=== PATIENT | female | born 1965 | race Caucasian/White ===

== ENCOUNTER → 2017-08-11 | Outpatient (CLI) | payer OTHER ==
--- NOTE | 2017-08-13 11:48 | MM ---
Reason for exam: screening (asymptomatic). History: Patient is postmenopausal. Physical Findings: A clinical breast exam by your physician is recommended on an annual basis and results should be correlated with mammographic findings. MG Screening Mammo w CAD Bilateral CC and MLO view(s) were taken. No prior studies available for comparison. There are scattered fibroglandular densities. There is no discrete abnormality. ASSESSMENT: Negative, BI-RAD 1 RECOMMENDATION: Routine screening mammogram of both breasts in 1 year.
== END | disposition home or self-care (01) ==
LOC: RADMAMWWP 15:49
PROVIDERS: ATTEND Family Medicine
DX: Z12.31 Encounter for screening mammogram for malignant neoplasm of breast (principal)

== ENCOUNTER → 2017-09-25 | Outpatient (CLI) | payer OTHER ==
[2017-09-25 07:53] LABS: Blood Urea Nitrogen 16 mg/dL (7-17); Non-African American GFR(MDRD) >60 (>60 ml/min/1.73 sqM)
--- NOTE | 2017-09-25 10:26 | CT ---
EXAMINATION TYPE: CT abdomen w con DATE OF EXAM: 09/25/2017 HISTORY: Abd pain and discomfort x2 months. CT DLP: 1371mGycm Automated Exposure Control for Dose Reduction was Utilized. CONTRAST: CT scan of the abdomen is performed with oral and with IV Contrast, patient injected with 100 mL of O mnipaque 300. COMPARISON: None. FINDINGS: LUNG BASES: Heart size is mildly enlarged. LIVER/GB: Liver is markedly hypodense consistent with fatty infiltration. PANCREAS: No significant abnormality is seen. SPLEEN: There is tiny splenule inferior to spleen on axial image 32. There is subcentimeter low dense lesion in spleen on axial image 22 presumed benign. ADRENALS: Slight nodular thickening to left adrenal gland favors benign hyperplasia. KIDNEYS: No significant abnormality is seen. BOWEL: There is small size hiatal hernia. Oral contrast does not reach colonic level. There is no julissa picious small or large bowel dilatation. There is short segment of concentric narrowing measuring bet ween 1 to 2 cm in the proximal to mid transverse colon seen on coronal image 18 and corresponding axi al image 47. Findings likely reflects focal spasm but constricting neoplasm cannot be excluded. Advis e colonoscopy follow-up of is not been performed in last 3 years LYMPH NODES: No greater than 1cm abdominal lymph nodes are appreciated. OSSEOUS STRUCTURES: Mild anterior spurring lower thoracic spine is present. OTHER: No significant additional abnormality is seen. IMPRESSION: No bowel obstruction is seen. No significant acute finding is seen to account for patient 's clinical symptoms. Attention to focal area proximal to mid transverse colon as detailed above.
== END | disposition home or self-care (01) ==
LOC: RADCTMAIN 07:22
PROVIDERS: ATTEND Family Medicine
DX: K43.9 Ventral hernia without obstruction or gangrene (principal)
CPT/HCPCS: 82565; 84520; 74160; 36415; Q9967

== ENCOUNTER 2017-10-03 07:35 | Day surgery (SDC) | payer OTHER ==
[2017-09-30 15:06] VITALS: BMI 34.0
[~2017-10-03 07:35] MED LIST: HYDROmorphone 1 MG/ML 1 ML SYRINGE IVP PRN; LACTATED RINGERS 1,000 ML IV ONE
[2017-10-03 08:08] LABS: Glucose,Whole Blood 166 mg/dL (75-99)
[2017-10-03 08:10] VITALS: RESP 16; TEMP 98
[2017-10-03] MEDS ORDERED: LIDOCAINE 1% 20 ML VIAL (10MG/ML) FOR IV START INTRADERMA ONE (08:10)
[2017-10-03] MEDS ORDERED: PROPOFOL 10 MG/ML 20 ML VIAL IV ONE (08:32)
--- NOTE | 2017-10-03 08:50 | P.PCN ---
Date of Procedure: 10/03/17 Procedure(s) Performed: BRIEF HISTORY: Patient is a 51-year-old pleasant white female, scheduled for an elective colonoscopy as a part of screening for colon neoplasia. She also had a CT of the abdomen and pelvis done in a week ago that showed some narrowing of the transverse colon. PROCEDURE PERFORMED: Colonoscopy. PREOPERATIVE DIAGNOSIS: Screening for colon cancer. IV sedation per Anesthesia. PROCEDURE: After informed consent was obtained, the patient, was brought into the endoscopy unit. IV sedation was administered by Anesthesia under continuous monitoring. Digital rectal examination was normal. Initially the Olympus CF- 160 flexible video colonoscope was then inserted in the rectum, gradually advanced into the cecum without any difficulty. Careful examination was performed as the scope was gradually being withdrawn. Ileocecal valve and the appendiceal orifice were visualized and appeared normal. Prep was excellent. Mucosa of the cecum, ascending colon, transverse colon, descending colon, sigmoid colon, and rectum appeared normal. Retroflexion was performed in the rectum and no lesions were seen. The patient tolerated the procedure well. IMPRESSION: Normal-appearing colon from rectum to cecum with no evidence of colorectal neoplasia . RECOMMENDATIONS: Findings of this examination were discussed with the patient as well as a family. She was advised to have a repeat screening colonoscopy in 10 years.
[2017-10-03 09:56] VITALS: BP 131/75; PULSE 94
[2017-10-03 10:05] LABS: Glucose,Whole Blood 182 mg/dL (75-99)
== END 2017-10-03 10:10 | disposition home or self-care (01) ==
LOC: ORWHC2ENDO 07:35
PROVIDERS: ATTEND Internal Medicine Gastroenterology
DX: Z12.11 Encounter for screening for malignant neoplasm of colon (principal); E11.9 Type 2 diabetes mellitus without complications; M19.90 Unspecified osteoarthritis, unspecified site; Z79.84 Long term (current) use of oral hypoglycemic drugs
CPT/HCPCS: G0121; J2704

== ENCOUNTER 2018-06-20 07:31 | Observation (INO) | payer OTHER ==
[2018-06-20] MEDS ORDERED: ASPIRIN 81 MG PO STA (08:03)
[2018-06-20] MEDS ORDERED: NITROGLYCERIN OINT 1 INCH/GM PACKET TOPICAL STA (08:03)
--- NOTE | 2018-06-20 08:06 | ED ---
General Adult HPI - General Chief complaint: Chest Pain Stated complaint: CHEST PAIN, HIGH BLOOD PRESSURE Time Seen by Provider: 06/20/18 07:56 Source: patient, family, RN notes reviewed Mode of arrival: wheelchair Limitations: no limitations - History of Present Illness Initial comments: Patient is a pleasant 52-year-old female presenting to the emergency Department with complaints of chest discomfort. Onset was 3 AM. Discomfort lasted around an hour. Discomfort has been near resolved since that time. Discomfort feels like pressure. Patient did have associated palpitations. No nausea vomiting. No diaphoresis. No dyspnea. Symptoms may have worsened with walking around. No leg pain or leg swelling. No history of similar symptoms previously. No radiation. Patient does state it made her feel anxious. Patient checked her blood pressure at home at 180/90. After that systolic blood pressure was 192. After while systolic blood pressure dropped to 123. - Related Data Home Medications Medication Instructions Recorded Confirmed Cholecalciferol (Vitamin D3) 2,000 units PO DAILY 09/30/17 09/30/17 [Vitamin D3] metFORMIN HCL [Glucophage] 500 mg PO BID 09/30/17 09/30/17 Allergies Allergy/AdvReac Type Severity Reaction Status Date / Time No Known Allergies Allergy Verified 06/20/18 07:34 Review of Systems ROS Statement: Those systems with pertinent positive or pertinent negative responses have been documented in the HPI. ROS Other: All systems not noted in ROS Statement are negative. Constitutional: Denies: fever Eyes: Denies: eye pain ENT: Denies: ear pain Respiratory: Denies: dyspnea Cardiovascular: Reports: chest pain, palpitations Endocrine: Reports: fatigue Gastrointestinal: Denies: abdominal pain Genitourinary: Denies: dysuria Musculoskeletal: Denies: back pain Skin: Denies: rash Neurological: Denies: weakness Psychiatric: Reports: anxiety Past Medical History Past Medical History: Diabetes Mellitus, Hypertension Additional Past Medical History / Comment(s): COLON SPASMS, type II DM History of Any Multi-Drug Resistant Organisms: None Reported Past Surgical History: Section Past Anesthesia/Blood Transfusion Reactions: No Reported Reaction Past Psychological History: No Psychological Hx Reported Smoking Status: Never smoker Past Alcohol Use History: None Reported Past Drug Use History: None Reported - Past Family History Son(s) Family Medical History: Deep Vein Thrombosis (DVT) General Exam Limitations: no limitations General appearance: alert, in no apparent distress Head exam: Present: atraumatic Eye exam: Present: normal appearance, PERRL ENT exam: Present: normal oropharynx Neck exam: Present: normal inspection Respiratory exam: Present: normal lung sounds bilaterally Cardiovascular Exam: Present: regular rate, normal rhythm Expanded Peripheral pulses: 2+: Radial (R), Radial (L), Dorsalis Pedis (R), Dorsalis Pedis (L) GI/Abdominal exam: Present: soft. Absent: tenderness Extremities exam: Present: normal inspection. Absent: pedal edema, calf tenderness Neurological exam: Present: alert Psychiatric exam: Present: normal affect, normal mood Skin exam: Present: normal color Course Vital Signs 06/20/18 07:34 Temperature 98.4 F Pulse Rate 110 H Respiratory 18 Rate Blood Pressure 183/100 O2 Sat by Pulse 97 Oximetry EKG Findings - EKG Comments: EKG Findings:: Normal sinus rhythm 95. IL 198. QRS 78. QT 356. QTc 447. Left axis. Borderline lateral T wave inversion. LVH criteria. Medical Decision Making - Medical Decision Making Patient reevaluated and resting comfortably in bed. Patient and family updated on results and plan. Case was discussed in detail with Dr. Blair, who will admit covering for Dr. Perla - Lab Data Result diagrams: 06/20/18 08:10 06/20/18 08:10 Lab Results 06/20/18 06/20/18 06/20/18 Range/Units 08:10 08:10 08:10 WBC 7.1 (3.8-10.6) k/uL RBC 5.12 (3.80-5.40) m/uL Hgb 14.4 (11.4-16.0) gm/dL Hct 44.0 (34.0-46.0) % MCV 85.9 (80.0-100.0) fL MCH 28.2 (25.0-35.0) pg MCHC 32.8 (31.0-37.0) g/dL RDW 13.3 (11.5-15.5) % Plt Count 366 (150-450) k/uL Neutrophils % 67 % Lymphocytes % 22 % Monocytes % 6 % Eosinophils % 3 % Basophils % 1 % Neutrophils # 4.8 (1.3-7.7) k/uL Lymphocytes # 1.5 (1.0-4.8) k/uL Monocytes # 0.4 (0-1.0) k/uL Eosinophils # 0.2 (0-0.7) k/uL Basophils # 0.1 (0-0.2) k/uL PT (9.0-12.0) sec INR (<1.2) APTT (22.0-30.0) sec Sodium 141 (137-145) mmol/L Potassium 4.4 (3.5-5.1) mmol/L Chloride 105 (98-107) mmol/L Carbon Dioxide 25 (22-30) mmol/L Anion Gap 11 mmol/L BUN 15 (7-17) mg/dL Creatinine 0.54 (0.52-1.04) mg/dL Est GFR (CKD-EPI)AfAm >90 (>60 ml/min/1.73 sqM) Est GFR (CKD-EPI)NonAf >90 (>60 ml/min/1.73 sqM) Glucose 217 H (74-99) mg/dL Calcium 9.7 (8.4-10.2) mg/dL Magnesium 2.1 (1.6-2.3) mg/dL Total Bilirubin 0.5 (0.2-1.3) mg/dL AST 34 (14-36) U/L ALT 35 (9-52) U/L Alkaline Phosphatase 71 (38-126) U/L Total Creatine Kinase 75 (30-135) U/L CK-MB (CK-2) 1.1 (0.0-2.4) ng/mL CK-MB (CK-2) Rel Index 1.5 Troponin I 0.013 (0.000-0.034) ng/mL Total Protein 7.6 (6.3-8.2) g/dL Albumin 4.5 (3.5-5.0) g/dL 06/20/18 Range/Units 08:10 WBC (3.8-10.6) k/uL RBC (3.80-5.40) m/uL Hgb (11.4-16.0) gm/dL Hct (34.0-46.0) % MCV (80.0-100.0) fL MCH (25.0-35.0) pg MCHC (31.0-37.0) g/dL RDW (11.5-15.5) % Plt Count (150-450) k/uL Neutrophils % % Lymphocytes % % Monocytes % % Eosinophils % % Basophils % % Neutrophils # (1.3-7.7) k/uL Lymphocytes # (1.0-4.8) k/uL Monocytes # (0-1.0) k/uL Eosinophils # (0-0.7) k/uL Basophils # (0-0.2) k/uL PT 9.8 (9.0-12.0) sec INR 1.0 (<1.2) APTT 22.9 (22.0-30.0) sec Sodium (137-145) mmol/L Potassium (3.5-5.1) mmol/L Chloride (98-107) mmol/L Carbon Dioxide (22-30) mmol/L Anion Gap mmol/L BUN (7-17) mg/dL Creatinine (0.52-1.04) mg/dL Est GFR (CKD-EPI)AfAm (>60 ml/min/1.73 sqM) Est GFR (CKD-EPI)NonAf (>60 ml/min/1.73 sqM) Glucose (74-99) mg/dL Calcium (8.4-10.2) mg/dL Magnesium (1.6-2.3) mg/dL Total Bilirubin (0.2-1.3) mg/dL AST (14-36) U/L ALT (9-52) U/L Alkaline Phosphatase (38-126) U/L Total Creatine Kinase (30-135) U/L CK-MB (CK-2) (0.0-2.4) ng/mL CK-MB (CK-2) Rel Index Troponin I (0.000-0.034) ng/mL Total Protein (6.3-8.2) g/dL Albumin (3.5-5.0) g/dL - Radiology Data Radiology results: image reviewed (Chest x-ray shows mild cardiomegaly) Critical Care Time Critical Care Time: Yes Total Critical Care Time: 31 Disposition Clinical Impression: Unstable angina pectoris Disposition: ADMITTED IP TO THIS [facility] Referrals: Rigoberto Correa DO [Primary Care Provider] - 1-2 days Decision Time: 09:24
[2018-06-20 08:21] LABS: Basophils # (A) 0.1 k/uL (0-0.2); Basophils % (A) 1 %; Eosinophils # (A) 0.2 k/uL (0-0.7); Eosinophils % (A) 3 %; HGB 14.4 gm/dL (11.4-16.0); Lymphocytes # (A) 1.5 k/uL (1.0-4.8); Lymphocytes % (A) 22 %; MCH 28.2 pg (25.0-35.0); MCHC 32.8 g/dL (31.0-37.0); MCV 85.9 fL (80.0-100.0); Monocytes # (A) 0.4 k/uL (0-1.0); Monocytes % (A) 6 %; Neutrophils # (A) 4.8 k/uL (1.3-7.7); Neutrophils % (A) 67 %; Platelet Count 366 k/uL (150-450); RBC 5.12 m/uL (3.80-5.40); RDW 13.3 % (11.5-15.5); WBC 7.1 k/uL (3.8-10.6)
[2018-06-20 08:28] LABS: Partial Thromboplastin Time 22.9 sec (22.0-30.0); Prothrombin Time 9.8 sec (9.0-12.0)
[2018-06-20 08:32] LABS: Sodium 141 mmol/L (137-145)
[2018-06-20 08:33] LABS: ALT 35 U/L (9-52); AST 34 U/L (14-36); Albumin 4.5 g/dL (3.5-5.0); Alkaline Phosphatase 71 U/L (38-126); Anion Gap 11 mmol/L; Blood Urea Nitrogen 15 mg/dL (7-17); Calcium 9.7 mg/dL (8.4-10.2); Carbon Dioxide 25 mmol/L (22-30); Chloride 105 mmol/L (98-107); Glucose 217 mg/dL (74-99); Magnesium 2.1 mg/dL (1.6-2.3); Potassium 4.4 mmol/L (3.5-5.1); Total Bilirubin 0.5 mg/dL (0.2-1.3); Total Protein 7.6 g/dL (6.3-8.2)
[2018-06-20 09:07] LABS: Creatine Kinase MB 1.1 ng/mL (0.0-2.4); Troponin I 0.013 ng/mL (0.000-0.034)
--- NOTE | 2018-06-20 09:11 | XR ---
EXAMINATION TYPE: XR chest 2V DATE OF EXAM: 06/20/2018 HISTORY: Chest Pain. REFERENCE: NONE. FINDINGS: The heart is mildly enlarged. The lungs are clear. Pleural spaces are clear. There is a mil d dextroscoliosis. IMPRESSION: MILD CARDIOMEGALY.
[2018-06-20] MEDS ORDERED: NITROGLYCERIN SL TABS 0.4 MG TAB SUBLINGUAL PRN (09:24)
[2018-06-20] MEDS ORDERED: HEPARIN SODIUM,PORCINE 5,000 UNIT/ML 1 ML VIAL IV ONE (09:24)
[2018-06-20] MEDS ORDERED: METOPROLOL TARTRATE 25 MG TAB PO SCH (09:30)
[2018-06-20] MEDS: HEPARIN SOD,PORK IN 0.45% NACL 25,000 UNIT in 0.45% NACL 1 500ML.BAG IV SCH (09:44)
[2018-06-20 10:24] VITALS: BMI 34.4
[2018-06-20] MEDS ORDERED: LOSARTAN 50 MG TAB PO SCH (11:30)
--- NOTE | 2018-06-20 11:32 | P.CRDCN ---
<Mary Iverson E - Last Filed: 06/20/18 11:24> History of Present Illness Consult date: 06/20/18 Requesting physician: Humberto Blair Consult reason: chest pain Chief complaint: Chest pain History of present illness: This is a pleasant 52-year-old female with history of hypertension, hyperlipidemia, which according to her at been somewhat recently diagnosed. She states that she had not been to a physician for approximately 15 years, she started to follow-up regularly in the office and was told to have diabetes and hypertension. She has been started on medications for both of these as well. Patient is not on a cholesterol pill at this time, she is a nonsmoker. Patient is overweight, however states that she is quite physically active overall. She presents to the hospital on this occasion with symptoms of feeling her heart racing fast. According to the patient today went out for dinner to [employer] approximately 10 PM, she states that she did drink a glass of iced tea and normally does not consume caffeine at all, went to bed around 2 AM, woke up from sleep around 3 AM feeling her heart racing extremely fast. She states that she got up, tried to take some very deep breaths to see if she can control the heart from going as fast as it was however the symptoms persisted. She did check her pulse at home which was noted at that time to be in the 1 8190 range. She came into the hospital for further evaluation. Blood pressure on arrival here 183/100 with a heart rate of 110, temperature 98.4 she was 97% on room air. Subsequent blood pressure 150/70 with a heart rate in the 80s, temperature 90.7, she is 94% on room air. EKG performed on arrival here showed a normal sinus rhythm with T wave inversion noted in the lateral leads. Chest x -ray shows mild cardiomegaly. White blood cell count is normal, hemoglobin 14.4 , platelet count 366. Sodium 141, potassium 4.4, BUN 15, creatinine 0.5. Magnesium 2.1. Troponin 0.013. At the time of my examination this morning, she is currently free of any palpitations or chest discomfort. Past Medical History Past Medical History: Diabetes Mellitus, Hypertension Additional Past Medical History / Comment(s): type II DM History of Any Multi-Drug Resistant Organisms: None Reported Past Surgical History: Section Past Anesthesia/Blood Transfusion Reactions: No Reported Reaction Past Psychological History: No Psychological Hx Reported Smoking Status: Never smoker Past Alcohol Use History: None Reported Past Drug Use History: None Reported - Past Family History Son(s) Family Medical History: Deep Vein Thrombosis (DVT) Medications and Allergies Home Medications Medication Instructions Recorded Confirmed Type Cholecalciferol (Vitamin D3) 2,000 units PO DAILY 09/30/17 06/20/18 History [Vitamin D3] metFORMIN HCL [Glucophage] 500 mg PO BID 09/30/17 06/20/18 History Losartan Potassium 100 mg PO DAILY 06/20/18 06/20/18 History Allergies Allergy/AdvReac Type Severity Reaction Status Date / Time No Known Allergies Allergy Verified 06/20/18 07:34 Physical Exam Vitals: Vital Signs Temp Pulse Pulse Resp BP BP Pulse Ox 06/20/18 10:13 97 F L 89 16 150/77 94 L 06/20/18 09:47 85 17 182/88 96 06/20/18 07:34 98.4 F 110 H 18 183/100 97 Intake and Output 06/19/18 06/20/18 06/20/18 22:59 06:59 14:59 Other: # Voids 1 Weight 85.5 kg PHYSICAL EXAMINATION: GENERAL: 52-year-old female in no acute distress at the time of my examination HEENT: Head is atraumatic, normocephalic. Pupils equal, round. Sclera anicteric. Conjunctiva are clear. Mucous membranes of the mouth are moist. Neck is supple. There is no elevated jugular venous pressure. No carotid bruit is heard. HEART EXAMINATION: Heart S1, S2 normal. No murmur or gallop heard. CHEST EXAMINATION: Lungs are clear to auscultation and precussion. No chest wall tenderness is noted on palpation or with deep breathing. ABDOMEN: Soft, obese, nontender. Bowel sounds are heard. No organomegaly noted. EXTREMITIES: 2+ peripheral pulses with no evidence of peripheral edema and no calf tenderness noted. NEUROLOGIC patient is awake, alert and oriented X3. . Results 06/20/18 08:10 06/20/18 08:10 Cardiac Enzymes 06/20/18 06/20/18 Range/Units 08:10 08:10 AST 34 (14-36) U/L CK-MB (CK-2) 1.1 (0.0-2.4) ng/mL Troponin I 0.013 (0.000-0.034) ng/mL Coagulation 06/20/18 Range/Units 08:10 PT 9.8 (9.0-12.0) sec APTT 22.9 (22.0-30.0) sec CBC 06/20/18 Range/Units 08:10 WBC 7.1 (3.8-10.6) k/uL RBC 5.12 (3.80-5.40) m/uL Hgb 14.4 (11.4-16.0) gm/dL Hct 44.0 (34.0-46.0) % Plt Count 366 (150-450) k/uL Comprehensive Metabolic Panel 06/20/18 Range/Units 08:10 Sodium 141 (137-145) mmol/L Potassium 4.4 (3.5-5.1) mmol/L Chloride 105 (98-107) mmol/L Carbon Dioxide 25 (22-30) mmol/L BUN 15 (7-17) mg/dL Creatinine 0.54 (0.52-1.04) mg/dL Glucose 217 H (74-99) mg/dL Calcium 9.7 (8.4-10.2) mg/dL AST 34 (14-36) U/L ALT 35 (9-52) U/L Alkaline Phosphatase 71 (38-126) U/L Total Protein 7.6 (6.3-8.2) g/dL Albumin 4.5 (3.5-5.0) g/dL Current Medications Generic Name Dose Route Start Last Admin Trade Name Jasonq PRN Reason Stop Dose Admin Aspirin 325 mg 06/21/18 09:00 Aspirin PO DAILY [facility] Heparin Sodium (Porcine) 0 unit 06/20/18 09:24 Heparin IV Q6HR PRN Low PTT Protocol Heparin Sodium/Sodium Chloride 500 mls @ 20.06 mls/hr 06/20/18 09:30 09:44 25,000 unit/ Sodium Chloride IV 11.7 units/kg/hr .Q24H KATH 20.06 mls/hr Administration Protocol 11.7 UNITS/KG/HR Metoprolol Tartrate 25 mg 06/20/18 09:30 06/20/18 09:43 Lopressor PO 25 mg BID [facility] Administration Nitroglycerin 1 inch 06/20/18 12:00 Nitro-Bid Oint TOPICAL Q6HR KATH Nitroglycerin 0.4 mg 06/20/18 09:24 Nitrostat SUBLINGUAL Q5M PRN Chest Pain Sodium Chloride 10 ml 06/20/18 21:00 Saline Flush IV BID KATH Intake and Output 06/19/18 06/20/18 06/20/18 22:59 06:59 14:59 Other: # Voids 1 Weight 85.5 kg Patient Weight 06/21/18 06:59 Weight 85.5 kg 06/20/18 08:10 06/20/18 08:10 EKG Interpretations (text) EKG shows a normal sinus rhythm with T wave inversion noted in the lateral leads. Assessment and Plan Plan: Assessment and plan #1 chest discomfort with symptoms described by the patient to be palpitations and feeling her heart racing fast. Initial troponin 0.013. EKG shows normal sinus rhythm with T wave inversion noted in the lateral leads. #2 hypertension, uncontrolled #3 diabetes Plan We will obtain an echocardiogram with Doppler study as well as 2 subsequent troponins. Obtain TSH level. Continue to monitor for any significant tachycardia or bradycardia arrhythmias. Patient has also been advised to be started on a statin being that she has an adult with diabetes. We will check a fasting lipid profile as well. Continue with the heparin drip at this time. She was initiated on beta fanta in the emergency room we'll also resume her Cozaar which she was on at home. Further recommendations to follow. DNP note has been reviewed, I agree with a documented findings and plan of care. Patient was seen and examined. <Narayan Sosa - Last Filed: 06/20/18 13:39> History of Present Illness History of present illness: Patient interviewed and examined. She was admitted with a rapid heartbeat was also found to be hypertensive and diabetic Suggest stop metoprolol, losartan 50 g twice daily, Dyazide, watch blood pressure for the next 24 hours and then later follow-up with Dr. Muro. Diabetes management per primary team Lipid panel Physical Exam Vitals: Vital Signs Temp Pulse Pulse Resp BP BP Pulse Ox 06/20/18 12:00 78 16 136/77 96 06/20/18 10:13 97 F L 89 16 150/77 94 L 06/20/18 09:47 85 17 182/88 96 06/20/18 07:34 98.4 F 110 H 18 183/100 97 Intake and Output 06/19/18 06/20/18 06/20/18 22:59 06:59 14:59 Other: # Voids 2 Weight 85.5 kg Results 06/20/18 08:10 06/20/18 08:10 Cardiac Enzymes 06/20/18 06/20/18 Range/Units 08:10 08:10 AST 34 (14-36) U/L CK-MB (CK-2) 1.1 (0.0-2.4) ng/mL Troponin I 0.013 (0.000-0.034) ng/mL Coagulation 06/20/18 Range/Units 08:10 PT 9.8 (9.0-12.0) sec APTT 22.9 (22.0-30.0) sec CBC 06/20/18 Range/Units 08:10 WBC 7.1 (3.8-10.6) k/uL RBC 5.12 (3.80-5.40) m/uL Hgb 14.4 (11.4-16.0) gm/dL Hct 44.0 (34.0-46.0) % Plt Count 366 (150-450) k/uL Comprehensive Metabolic Panel 06/20/18 Range/Units 08:10 Sodium 141 (137-145) mmol/L Potassium 4.4 (3.5-5.1) mmol/L Chloride 105 (98-107) mmol/L Carbon Dioxide 25 (22-30) mmol/L BUN 15 (7-17) mg/dL Creatinine 0.54 (0.52-1.04) mg/dL Glucose 217 H (74-99) mg/dL Calcium 9.7 (8.4-10.2) mg/dL AST 34 (14-36) U/L ALT 35 (9-52) U/L Alkaline Phosphatase 71 (38-126) U/L Total Protein 7.6 (6.3-8.2) g/dL Albumin 4.5 (3.5-5.0) g/dL Current Medications Generic Name Dose Route Start Last Admin Trade Name Freq PRN Reason Stop Dose Admin Aspirin 325 mg 06/21/18 09:00 Aspirin PO DAILY KATH Atorvastatin Calcium 40 mg 06/20/18 11:45 06/20/18 12:19 Lipitor PO 40 mg DAILY KATH Administration Heparin Sodium (Porcine) 0 unit 06/20/18 09:24 Heparin IV Q6HR PRN Low PTT Protocol Hydrochlorothiazide 25 mg 06/20/18 11:45 06/20/18 12:19 Hydrodiuril PO 25 mg DAILY KATH Administration Heparin Sodium/Sodium Chloride 500 mls @ 20.06 mls/hr 06/20/18 09:30 09:44 25,000 unit/ Sodium Chloride IV 11.7 units/kg/hr .Q24H KATH 20.06 mls/hr Administration Protocol 11.7 UNITS/KG/HR Losartan Potassium 50 mg 06/20/18 21:00 06/20/18 12:24 Cozaar PO 50 mg BID KATH Administration Metformin HCl 500 mg 06/20/18 12:15 06/20/18 12:23 Glucophage PO 500 mg BID-W/MEALS KATH Administration Nitroglycerin 0.4 mg 06/20/18 09:24 Nitrostat SUBLINGUAL Q5M PRN Chest Pain Sodium Chloride 10 ml 06/20/18 21:00 Saline Flush IV BID KATH Intake and Output 06/19/18 06/20/18 06/20/18 22:59 06:59 14:59 Other: # Voids 2 Weight 85.5 kg Patient Weight 06/21/18 06:59 Weight 85.5 kg 06/20/18 08:10 06/20/18 08:10
[2018-06-20] MEDS ORDERED: HYDROCHLOROTHIAZIDE 25 MG TAB PO SCH (11:45)
[2018-06-20 11:48] LABS: Glucose,Whole Blood 181 mg/dL (75-99)
[2018-06-20] MEDS ORDERED: NITROGLYCERIN OINT 1 INCH/GM PACKET TOPICAL SCH (12:00)
[2018-06-20] MEDS: ATORVASTATIN 40 MG TAB PO SCH (12:19)
[2018-06-20] MEDS: metFORMIN 500 MG TAB PO SCH ×2 (12:23→17:06)
[2018-06-20] MEDS: LOSARTAN 50 MG TAB PO SCH ×2 (12:24→20:30)
--- NOTE | 2018-06-20 13:56 | P.HPIM ---
History of Present Illness 52-year-old the female came in because of palpitations. Patient does have history of a supra ventricular tachycardia years ago. Patient EKG here is sinus rhythm patient heart rate apparently was in 190s at home. Patient has some minimal chest pressure secondary to palpitations. Patient was given beta fanta. Patient was a valid by cardiology the recommending to hold off on beta fanta patient that it appears to have left ventricle hypertrophy with elevated blood pressure appears to have essential hypertension which is untreated because of which a cardiology is recommending BISHOP inhibitor along with hydrochlorothiazide. Patient's troponins and EKGs are essentially within normal limits and a monitor her overnight. Review of Systems REVIEW OF SYSTEMS: CONSTITUTIONAL: No fever, no malaise, no fatigue. HEENT: No recent visual problems or hearing problems. Denied any sore throat. CARDIOVASCULAR: No chest pain, orthopnea, PND, no lightheadedness PULMONARY: No shortness of breath, no cough, no hemoptysis. GASTROINTESTINAL: No diarrhea, no nausea, no vomiting, no abdominal pain. Normoactive bowel sounds. NEUROLOGICAL: No headaches, no weakness, no numbness. HEMATOLOGICAL: Denies any bleeding or petechiae. GENITOURINARY: Denies any burning micturition, frequency, or urgency. MUSCULOSKELETAL/RHEUMATOLOGICAL: Denies any joint pain, swelling, or any muscle pain. ENDOCRINE: Denies any polyuria or polydipsia. The rest of the 14-point review of systems is negative. Past Medical History Past Medical History: Diabetes Mellitus, Hypertension Additional Past Medical History / Comment(s): type II DM History of Any Multi-Drug Resistant Organisms: None Reported Past Surgical History: Section Past Anesthesia/Blood Transfusion Reactions: No Reported Reaction Past Psychological History: No Psychological Hx Reported Smoking Status: Never smoker Past Alcohol Use History: None Reported Past Drug Use History: None Reported - Past Family History Son(s) Family Medical History: Deep Vein Thrombosis (DVT) Medications and Allergies Home Medications Medication Instructions Recorded Confirmed Type Cholecalciferol (Vitamin D3) 2,000 units PO DAILY 09/30/17 06/20/18 History [Vitamin D3] metFORMIN HCL [Glucophage] 500 mg PO BID 09/30/17 06/20/18 History Losartan Potassium 100 mg PO DAILY 06/20/18 06/20/18 History Allergies Allergy/AdvReac Type Severity Reaction Status Date / Time No Known Allergies Allergy Verified 06/20/18 07:34 Physical Exam Vitals: Vital Signs Temp Pulse Pulse Resp BP BP Pulse Ox 06/20/18 12:00 78 16 136/77 96 06/20/18 10:13 97 F L 89 16 150/77 94 L 06/20/18 09:47 85 17 182/88 96 06/20/18 07:34 98.4 F 110 H 18 183/100 97 Intake and Output 06/19/18 06/20/18 06/20/18 22:59 06:59 14:59 Other: # Voids 2 Weight 85.5 kg PHYSICAL EXAMINATION: GENERAL: The patient is alert and oriented x3, not in any acute distress. Well developed, well nourished. HEENT: Pupils are round and equally reacting to light. EOMI. No scleral icterus. No conjunctival pallor. Normocephalic, atraumatic. No pharyngeal erythema. No thyromegaly. CARDIOVASCULAR: S1 and S2 present. No murmurs, rubs, or gallops. PULMONARY: Chest is clear to auscultation, no wheezing or crackles. ABDOMEN: Soft, nontender, nondistended, normoactive bowel sounds. No palpable organomegaly. MUSCULOSKELETAL: No joint swelling or deformity. EXTREMITIES: No cyanosis, clubbing, or pedal edema. NEUROLOGICAL: Gross neurological examination did not reveal any focal deficits. SKIN: No rashes. Results CBC & Chem 7: 06/20/18 08:10 06/20/18 08:10 Labs: Abnormal Lab Results - Last 24 Hours (Table) 06/20/18 06/20/18 Range/Units 08:10 11:45 Glucose 217 H (74-99) mg/dL POC Glucose (mg/dL) 181 H (75-99) mg/dL Thrombosis Risk Factor Assmnt - Choose All That Apply Any of the Below Risk Factors Present?: Yes Each Factor Represents 1 point: Acute IN, Age 41-60 years, Obesity (BMI >25) Other Risk Factors: Yes Thrombosis Risk Factor Assessment Total Risk Factor Score: 3 Thrombosis Risk Factor Assessment Level: Moderate Risk Assessment and Plan Plan: -Palpitations: Patient may have had an episode of SVT, beta fanta is being discontinued so that we don't mask any further episodes of SVTs if she has any. If patient doesn't have any significant events probably can be discharged tomorrow. -Chest discomfort noncardiac, we will ruled out acute current syndromes -Hypertension: Uncontrolled, patient is on losartan and had chlorothiazide now will monitor. -Type 2 diabetes mellitus on metformin which will be continued.
[2018-06-20 14:02] LABS: Cholesterol 293 mg/dL (<200); HDL Cholesterol 40 mg/dL (40-60); Triglycerides 440 mg/dL (<150)
[2018-06-20 15:48] LABS: Creatine Kinase MB 0.9 ng/mL (0.0-2.4); Troponin I 0.016 ng/mL (0.000-0.034)
[2018-06-20] MEDS: HEPARIN SODIUM,PORCINE 5,000 UNIT/ML 1 ML VIAL IV PRN ×2 (15:58→21:41)
[2018-06-20 16:38] LABS: Glucose,Whole Blood 155 mg/dL (75-99)
[2018-06-20 21:02] LABS: Glucose,Whole Blood 143 mg/dL (75-99)
[2018-06-20 21:34] LABS: Creatine Kinase MB 0.8 ng/mL (0.0-2.4); Troponin I 0.018 ng/mL (0.000-0.034)
[2018-06-21 04:25] LABS: Mean Platelet Volume 6.6; Platelet Count 382 k/uL (150-450)
[2018-06-21 04:36] LABS: Cholesterol 266 mg/dL (<200); HDL Cholesterol 39 mg/dL (40-60)
[2018-06-21 04:45] LABS: Triglycerides 639 mg/dL (<150)
[2018-06-21] MEDS: HEPARIN SODIUM,PORCINE 5,000 UNIT/ML 1 ML VIAL IV PRN (05:16)
[2018-06-21] MEDS: HEPARIN SOD,PORK IN 0.45% NACL 25,000 UNIT in 0.45% NACL 1 500ML.BAG IV SCH (05:16)
[2018-06-21 06:16] LABS: Glucose,Whole Blood 189 mg/dL (75-99)
[2018-06-21] MEDS: metFORMIN 500 MG TAB PO SCH (06:54)
[2018-06-21] MEDS: LOSARTAN 50 MG TAB PO SCH (08:38)
[2018-06-21] MEDS: ATORVASTATIN 40 MG TAB PO SCH (08:38)
[2018-06-21] MEDS ORDERED: TRIAMTERENE-HCTZ 37.5-25MG 1 EACH CAP PO SCH (09:00)
[2018-06-21] MEDS ORDERED: ASPIRIN 325 MG TAB PO SCH (09:00)
--- NOTE | 2018-06-21 11:40 | P.PN ---
Subjective Patient is doing better. Her blood pressure is better controlled on Cozaar 50 g twice daily along with Dyazide No further palpitations On examination blood pressure 134/83 mmHg respirations normal afebrile 97.8F pulse rate in the 90s Breath sounds are clear Heart sounds S1 and S2 normal Abdomen soft nontender Extended is warm no edema Increased BMI noted Impression Hypertension, essential Left ventricular hypertrophy with preserved systolic function Very mild mitral prolapse Uncontrolled type 2 diabetes, recently diagnosed Dyslipidemia, total cholesterol 266, triglycerides 639, HDL 39 Normal electrolytes Normal kidney function TSH 2.5, normal Impression Patient admitted with palpitations. She's had a history of palpitations in the past but so far no diagnosis has been made Uncontrolled hypertension Newly diagnosed diabetes Elevated triglycerides of greater than 600 Blood pressure is better controlled on losartan 50 g twice daily and Dyazide Detailed discussion with the patient I will see her again in a few weeks. Blood pressure control, management of dyslipidemia, management of diabetes per PCP And further workup for diagnosis of palpitations/arrhythmia Objective - Vital Signs Vital signs: Vital Signs Temp 97.8 F 06/21/18 08:11 Pulse 92 06/21/18 08:11 Resp 18 06/21/18 08:11 BP 155/88 06/21/18 08:11 Pulse Ox 95 06/21/18 08:11 Intake & Output 06/20/18 06/21/18 06/21/18 18:59 06:59 18:59 Intake Total 925.375 373.718 Balance 925.375 373.718 Weight 85.5 kg 86.2 kg Intake: IV 80 0.9ns 80 Intake, IV Titration 125.375 373.718 Amount Heparin Sod,Pork in 0.45% 125.375 373.718 NaCl 25,000 unit In 0.45 % NaCl 1 500ml.bag @ 11.7 UNITS/KG/HR 20.06 mls/hr IV .Q24H KATH Rx#: [id number] Oral 720 Other: Voiding Method Toilet # Voids 2 1 - Labs CBC & Chem 7: 06/21/18 04:00 06/20/18 08:10 Labs: Abnormal Lab Results - Last 24 Hours (Table) 06/20/18 06/20/18 06/20/18 Range/Units 08:10 11:45 16:18 APTT (22.0-30.0) sec POC Glucose (mg/dL) 181 H 155 H (75-99) mg/dL Triglycerides 440 H (<150) mg/dL Cholesterol 293 H (<200) mg/dL HDL Cholesterol (40-60) mg/dL 06/20/18 06/20/18 06/21/18 Range/Units 20:55 21:01 04:00 APTT 31.5 H 43.5 H (22.0-30.0) sec POC Glucose (mg/dL) 143 H (75-99) mg/dL Triglycerides (<150) mg/dL Cholesterol (<200) mg/dL HDL Cholesterol (40-60) mg/dL 06/21/18 06/21/18 Range/Units 04:00 06:15 APTT (22.0-30.0) sec POC Glucose (mg/dL) 189 H (75-99) mg/dL Triglycerides 639 H (<150) mg/dL Cholesterol 266 H (<200) mg/dL HDL Cholesterol 39 L (40-60) mg/dL
[2018-06-21 11:48] LABS: Glucose,Whole Blood 139 mg/dL (75-99)
[2018-06-21 12:06] VITALS: BP 160/89; PULSE 83; RESP 16; TEMP 97.6
--- NOTE | 2018-06-21 13:00 | ECHOF ---
Referral Reason:chest pain MEASUREMENTS -------- HEIGHT: 157.5 cm WEIGHT: 85.3 kg BP: RVIDd: 2.6 cm (< 3.3) IVSd: 1.5 cm (0.6 - 1.1) LVIDd: 4.2 cm (3.9 - 5.3) LVPWd: 2.2 cm (0.6 - 1.1) IVSs: 1.6 cm LVIDs: 2.4 cm LVPWs: 1.4 cm Ao Diam: 2.8 cm (2.0 - 3.7) AV Cusp: 1.5 cm (1.5 - 2.6) LA Diam: 3.5 cm (2.7 - 3.8) MV EXCURSION: 14.230 mm (> 18.000) MV EF SLOPE: 75 mm/s (70 - 150) EPSS: 0.9 cm MV E Marcin: 0.48 m/s MV DecT: 250 ms MV A Marcin: 0.51 m/s MV E/A Ratio: 0.93 RAP: 5.00 mmHg RVSP: 8.79 mmHg FINDINGS -------- Sinus rhythm. This was a technically difficult study with suboptimal views. The left ventricular size is normal. There is severe concentric left ventricular hypertrophy. Ove rall left ventricular systolic function is normal with, an EF between 55 - 60 %. The RV was not well visualized. The left atrial size is normal. The right atrium is normal in size. The aortic valve was not well visualized. The mitral valve was not well visualized. VERY MILD MVP The tricuspid valve was not well visualized. The pulmonic valve was not well visualized. The pericardium is normal. CONCLUSIONS -------- 1. Sinus rhythm. 2. This was a technically difficult study with suboptimal views. 3. The left ventricular size is normal. 4. There is severe concentric left ventricular hypertrophy. 5. Overall left ventricular systolic function is normal with, an EF between 55 - 60 %. 6. The RV was not well visualized. 7. The left atrial size is normal. 8. The right atrium is normal in size. 9. The aortic valve was not well visualized. 10. The mitral valve was not well visualized. 11. The tricuspid valve was not well visualized. 12. The pulmonic valve was not well visualized. 13. The pericardium is normal. LEASING SALES CONSULTANT: Lubna Price RDCS
--- NOTE | 2018-06-21 14:08 | P.DS ---
Providers Date of admission: 06/20/18 09:24 Attending physician: Humberto Blair Consults: 06/20/18 09:24 Consult Physician Urgent Consulting Provider: Yoav Avalos Consult Reason/Comments: ua Do you want consulting provider notified?: Yes Primary care physician: Rigoberto [facility] Course: 52-year-old the female came in because of palpitations. Patient does have history of a supra ventricular tachycardia years ago. Patient EKG here is sinus rhythm patient heart rate apparently was in 190s at home. Patient has some minimal chest pressure secondary to palpitations. Patient was given beta fanta. Patient was a valid by cardiology the recommending to hold off on beta fanta patient that it appears to have left ventricle hypertrophy with elevated blood pressure appears to have essential hypertension which is untreated because of which a cardiology is recommending BISHOP inhibitor along with hydrochlorothiazide. Patient's troponins and EKGs are essentially within normal limits and a monitor her overnight. 06/21/2018 No overnight events patient is clinically doing well patient is being discharged on Dyazide additionally for her blood pressure no beta fanta is being prescribed patient will follow-up with the cardiology as an outpatient. Patient is also being started on statin. PHYSICAL EXAMINATION: GENERAL: The patient is alert and oriented x3, not in any acute distress. Well developed, well nourished. HEENT: Pupils are round and equally reacting to light. EOMI. No scleral icterus. No conjunctival pallor. Normocephalic, atraumatic. No pharyngeal erythema. No thyromegaly. CARDIOVASCULAR: S1 and S2 present. No murmurs, rubs, or gallops. PULMONARY: Chest is clear to auscultation, no wheezing or crackles. ABDOMEN: Soft, nontender, nondistended, normoactive bowel sounds. No palpable organomegaly. MUSCULOSKELETAL: No joint swelling or deformity. EXTREMITIES: No cyanosis, clubbing, or pedal edema. NEUROLOGICAL: Gross neurological examination did not reveal any focal deficits. SKIN: No rashes. -Palpitations: Patient may have had an episode of SVT, beta fanta is being discontinued so that we don't mask any further episodes of SVTs if she has any. Patient does not have any significant overnight events is being discharged today placed with a residential fee appraiser patient -Chest discomfort noncardiac, we will ruled out acute current syndromes -Hypertension: Uncontrolled, diabetic is being added to her regimen. -Type 2 diabetes mellitus on metformin which will be continued. Plan - Discharge Summary Discharge Rx Participant: Yes New Discharge Prescriptions: No Action metFORMIN HCL [Glucophage] 500 mg PO BID Cholecalciferol (Vitamin D3) [Vitamin D3] 2,000 units PO DAILY Losartan Potassium 50 mg PO BID Triamterene-Hctz 37.5-25Mg [Dyazide 37.5-25 Capsule] 1 cap PO DAILY Atorvastatin [Lipitor] 40 mg PO DAILY Discharge Medication List Cholecalciferol (Vitamin D3) [Vitamin D3] 2,000 units PO DAILY 09/30/17 [History ] metFORMIN HCL [Glucophage] 500 mg PO BID 09/30/17 [History] Losartan Potassium 50 mg PO BID 06/20/18 [History] Atorvastatin [Lipitor] 40 mg PO DAILY 06/21/18 [History] Triamterene-Hctz 37.5-25Mg [Dyazide 37.5-25 Capsule] 1 cap PO DAILY 06/21/18 [ History] Follow up Appointment(s)/Referral(s): Narayan Sosa MD [STAFF PHYSICIAN] - 2 Weeks Rigoberto Correa DO [Primary Care Provider] - 3 Days Patient Instructions/Handouts: Chest Pain (ED), Heart Palpitations (ED) Discharge Disposition: HOME SELF-CARE
--- NOTE | 2018-07-01 10:01 | CDI ---
Outpatient Documentation Clarification Form Date: 07-01-18 CDS/Project Leader Name: MAGGIE TENORIO Phone: If any questions, call Sosa Armas Rare/Endangered Species Specialist at [phone] Patient Name: FAVIOLA NO Admit Date: 06-20-18 Discharge Date: 06-21-18 ATTENTION: The [facility] Coding Staff appreciate your assistance in clarifying documentation. Please respond to the clarification below the line at the bottom and electronically sign. The [facility] Coding staff will review the response and follow-up if needed. Please note: Queries are made part of the Legal Health Record. If you have any questions, please contact the Rare/Endangered Species Specialist. Dear Dr. Blair, Please specify if uncontrolled diabetes is "hypoglycemia" or "hyperglycemia". hyperglycemia". Thank you for your kind consideration. SAMAN
== END 2018-06-21 14:16 | disposition home or self-care (01) ==
LOC: EC 07:31 → 6SEL 09:24 → 3OBS 06-21 08:15
PROVIDERS: ADMIT Internal Medicine; ATTEND Internal Medicine
DX: R00.2 Palpitations (principal); R07.89 Other chest pain; I10 Essential (primary) hypertension; E11.9 Type 2 diabetes mellitus without complications; E78.5 Hyperlipidemia, unspecified; E78.1 Pure hyperglyceridemia; I34.1 Nonrheumatic mitral (valve) prolapse; I25.2 Old myocardial infarction; Z79.84 Long term (current) use of oral hypoglycemic drugs; Z82.49 Family history of ischemic heart disease and other diseases of the circulatory system; Z79.899 Other long term (current) drug therapy; E66.9 Obesity, unspecified; Z68.34 Body mass index [BMI] 34.0-34.9, adult
CPT/HCPCS: 99291 ×2; 96376 ×5; 96365; 96366; 36415; 94760; 93005; 93306; 80061 ×2; 80053; 82550; 82553; 83735; 84443; 84484; 85025; 85049; 85610; 85730 ×2; 83721; 83036; 71046; G0378 ×3; J1644 ×4; Q9950

== ENCOUNTER 2018-12-10 07:03 | Day surgery (SDC) | payer BC, OTHER ==
[2018-12-03 15:48] VITALS: BMI 33.6
[2018-12-10] MEDS ORDERED: SODIUM CHLORIDE 0.9% 1,000 ML IV SCH (07:19)
[2018-12-10] MEDS ORDERED: LACTATED RINGERS 1,000 ML IV SCH (07:19)
[2018-12-10] MEDS ORDERED: MIDAZOLAM (PF) 2 MG/2 ML VIAL IV PRN (07:19)
[2018-12-10] MEDS ORDERED: LIDOCAINE 1% 20 ML VIAL (10MG/ML) FOR IV START INTRADERMA PRN (07:19)
[2018-12-10] MEDS ORDERED: IV FLUID CONTINUATION 1,000 ML IV ONE (07:20)
[2018-12-10 07:40] VITALS: RESP 18
[2018-12-10 07:55] LABS: Glucose,Whole Blood 153 mg/dL (75-99)
[2018-12-10] MEDS ORDERED: PROPOFOL 10 MG/ML 20 ML VIAL IV ONE (08:01)
[2018-12-10] MEDS ORDERED: ISOPROTERENOL 250 MCG/1.25 ML SYR IV ONE (08:01)
[2018-12-10] MEDS ORDERED: MIDAZOLAM 2 MG/2 ML VIAL ONE (08:01)
[2018-12-10] MEDS ORDERED: fentaNYL (PF) 50 MCG/ML 2 ML AMP ONE (08:01)
[2018-12-10] MEDS ORDERED: LIDOCAINE 1% INJ 10MG/ML (20 ML MDV) ONE (08:21)
[2018-12-10] MEDS ORDERED: HEPARIN SODIUM 1,000 UN/ML (10ML VL) ONE (08:22)
[2018-12-10] MEDS ORDERED: IV FLUID CONTINUATION 950 ML IV ONE (08:30)
[2018-12-10] MEDS ORDERED: LIDOCAINE 1% INJ 10MG/ML (20 ML MDV) SQ ONE (08:41)
[2018-12-10] MEDS ORDERED: ACETAMINOPHEN TAB 325 MG TAB PO PRN (09:55)
[2018-12-10] MEDS ORDERED: HYDROcodone/APAP 5-325MG 1 EACH TAB PO PRN (09:55)
--- NOTE | 2018-12-10 10:08 | P.PRLE ---
RE: KwanEmily Jay Jay Dear Rigoberto Emily Bowens underwent a diagnostic EP study The EP study revealed nonsustained atrial arrhythmias, multifocal No clear-cut atrial fibrillation could be induced There was no evidence for accessory pathway conduction There was no evidence for AV jessika reentry At this time, Emily would be best served with lifestyle modification with weight reduction, sleep apnea management and management of hypertension and diabetes. It is quite likely that in the future she will develop atrial fibrillation, especially if she does not make significant lifestyle changes. In that situation her ASTRID VASC score would be at least 3 I spoke to her as well as her in detail regarding the importance of lifestyle modification particularly weight reduction and sleep apnea management At this point she should continue all her current medications and her blood pressure goal should be consistently less than 130/80 mmHg She should also continue statins No anticoagulation indicated at this point Thank you for entrusting me with the care of the patient Warm regards Sincerely Narayan Sosa
[2018-12-10] MEDS ORDERED: ACETAMINOPHEN IV (For NPO) 1,000 MG in EMPTY BAG 1 BAG IVPB ONE (12:00)
--- NOTE | 2018-12-10 12:23 | CE ---
CARDIAC ELECTROPHYSIOLOGY REPORT Emily Bowens is a 53-year-old female with recurrent palpitations and a slurred upstroke consistent with a possible delta wave on the QRS on a 12-lead ECG. She was brought in for diagnostic EP study and possible radiofrequency ablation. Patient was brought to the EP lab in a fasting state. Written informed consent was obtained prior to the procedure. The left shoulder area was prepped and draped as per protocol. 1% lidocaine was used for local anesthesia. Venous sheaths were placed in the right and left femoral veins and via these diagnostic catheters were placed in the right heart (high right atrial catheter, His bundle, RV and coronary sinus.) On fluoroscopy, the right diaphragm was significantly elevated as compared to the left diaphragm, but both diaphragms were moving with respiration. Sinus cycle length 663 milliseconds, OK interval 181 milliseconds, QRS 93 milliseconds, QT 382 milliseconds, AH and HV intervals were normal. Sinus node recovery times of 600, 500 and 400 milliseconds were 890, 738 and 840 milliseconds. AV node Wenckebach block from the high right atrium was 350 milliseconds. No delta waves are noted. At baseline there was VA dissociation with pacing. AV node Wenckebach block from the coronary sinus was 360 milliseconds. Atrial extra stimulation was performed after double extra stimuli from both the coronary sinus and from the high right atrium, and no SVT was induced and there was no evidence for any accessory pathway conduction nor was there any evidence for any slow pathway. Isuprel was started wide open and then at 2 mcg. VA Wenckebach block improved 300 milliseconds. AV node Wenckebach block 350 milliseconds, no slow pathway conduction, no accessory pathway conduction. Atrial extra stimulation was performed from the high right atrium and from the coronary sinus. Burst stimulation was performed from the right ventricle. On Isuprel, short bursts of irregular atrial tachycardia were noted. These were multifocal, sometimes from the right atrial sometimes from the left atrium. They occurred both spontaneously as well as following atrial pacing. Atrial extra stimulation or occasionally with ventricular pacing. However, there was no evidence for AV jessika reentry, there was no evidence for any accessory pathway conduction or orthodromic reentry or antidromic reentry. No ventricular arrhythmias were noted. Isuprel was stopped and EP study was continued. No other arrhythmias noted. All catheters were removed at the end of the procedure and this patient was transferred back to telemetry. RESULT: Diagnostic EP study revealin. Normal sinus node function. 2. Normal AV node function. 3. No evidence for slow pathway conduction, no evidence for any accessory pathway conduction. 4. No ventricular arrhythmias inducible. 5. Easily inducible atrial arrhythmias, nonsustained, irregular and multifocal, sometimes from right atrium, sometimes from the left atrium, only on Isuprel. 6. No evidence for atrial fibrillation. SUGGEST: Lifestyle modification, weight reduction, diabetes management, hypertension management, sleep apnea assessment. Continue antihypertensive therapy, management of diabetes, and dyslipidemia. MMODL / IJN: [id number] /
[2018-12-10 15:50] VITALS: BP 116/68; PULSE 86; TEMP 98.3
[2018-12-10] MEDS ORDERED: LOSARTAN 50 MG TAB PO SCH (21:00)
[2018-12-10] MEDS ORDERED: metFORMIN 500 MG TAB PO SCH (21:00)
[2018-12-11] MEDS ORDERED: ATORVASTATIN 40 MG TAB PO SCH (09:00)
[2018-12-11] MEDS ORDERED: TRIAMTERENE-HCTZ 37.5-25MG 1 EACH CAP PO SCH (09:00)
== END 2018-12-10 19:35 | disposition home or self-care (01) ==
LOC: CATHEP 07:03 → 1SOBS 11:36 → CATHEP 19:35
PROVIDERS: ATTEND Internal Medicine Clinical Cardiac Electrophysiology
DX: R00.2 Palpitations (principal); I11.9 Hypertensive heart disease without heart failure; E11.9 Type 2 diabetes mellitus without complications; I45.6 Pre-excitation syndrome; Z79.84 Long term (current) use of oral hypoglycemic drugs; Z79.899 Other long term (current) drug therapy; E78.1 Pure hyperglyceridemia
CPT/HCPCS: 81025; 93620; 93623

== ENCOUNTER → 2019-01-28 | Outpatient (CLI) | payer BC ==
--- NOTE | 2019-01-28 12:38 | CONS ---
CONSULTATION DATE OF SERVICE: 01/28/2019 A 53-year-old lady who has been referred to [facility] for evaluation for possible obstructive sleep apnea-hypopnea syndrome. HISTORY OF PRESENT ILLNESS/SLEEP-WAKE EVALUATION: Patient's usual sleep schedule from 11 p.m. to 6 a.m., basically 7 days a week, usually no problems with falling asleep. No TV in bedroom. She prefers to sleep on the left side. Many years ago she slept on the back, that was recommended for her and that is what she is doing every night. Sometimes she has snoring according to her when she is tired. She usually sleeps through the night without awakenings. Not any significant excessive daytime sleepiness. [place] Sleepiness Scale is 0. She does not take any naps. PAST MEDICAL HISTORY: Positive for hypertension, diabetes, recently she has had an episode of tachycardia, has been evaluated by Sales Program Coordinator, hyperlipidemia, menopause for 3 years. MEDICATIONS: Metformin, vitamin D, losartan, temp, p.r.n. hydrochlorothiazide for the last 13. PAST SURGICAL HISTORY: 24 years ago. FAMILY HISTORY: -mass in his knee 0. Father has diabetes is 2. REVIEW OF SYSTEMS: He said he is a self, but due to some pinpoint condition was in the 2 during the day in the episodes of palpitation during. PHYSICAL EXAM: lady without distress BP 147/75, HR 86, RR 16, height 5 feet 1-1/2 inches, weight 186 pounds. Body mass index 34.5, temperature 97.9 oxygen saturation at room air 97% oropharynx showed tongue protrudes midline. Extremely low position of soft palate. Mallampati 4. Wide neck 16 inches in circumference. Abdomen slightly diabetes under physical exam normal just: My template. IMPRESSION: 1. Occasional snoring, extremely low position of soft palate, wide neck, obstructive sleep apnea hypopnea syndrome. 2. Obesity, body mass index of 34.5. 3. Hypertension. 4. History of cardiac arrhythmia. 5. Diabetes mellitus. 6. Hyperlipidemia. 7. Menopause for 3 years. 8. Status post many years ago. PLAN: 1. Home sleep apnea test. 2. Polysomnography for evaluation of patient's breathing during sleep. 3. CPAP/BiPAP titration if sleep study confirms obstructive sleep apnea-hypopnea syndrome. 4. Preferable position during sleep on the side. 5. No driving if patient feels any sleepiness. 6. I will see patient for follow up visit to explain results of testing and following plan. Thank you very much for referring his patient for consultation, Sincerely, Fadi Elias MD, PhD, FAASM Diplomat of [place] [employer] [place] [employer] Waste Water Operator [facility] [place] MMODL / IJN: [id number] /
== END ==
LOC: SLEEP 10:53
PROVIDERS: ATTEND Internal Medicine
DX: G47.33 Obstructive sleep apnea (adult) (pediatric) (principal); E66.9 Obesity, unspecified; I10 Essential (primary) hypertension; E11.9 Type 2 diabetes mellitus without complications; E78.5 Hyperlipidemia, unspecified; Z78.0 Asymptomatic menopausal state; Z98.890 Other specified postprocedural states; Z86.79 Personal history of other diseases of the circulatory system; Z79.899 Other long term (current) drug therapy; Z79.84 Long term (current) use of oral hypoglycemic drugs
CPT/HCPCS: 99211

== ENCOUNTER → 2019-10-08 | Outpatient (CLI) | payer BC ==
--- NOTE | 2019-10-08 13:39 | US ---
EXAMINATION TYPE: US thyroid st tissue head/neck DATE OF EXAM: 10/08/2019 COMPARISON: NONE CLINICAL HISTORY: Localized swelling mass lump R22.1. Patient states doctor thought left side of neck was enlarged compared to right. No palpable. No thyroid meds. GLAND SIZE: Right Lobe: 4.9 x 1.4 x 1.7 cm Overall Parenchyma: heterogenous Left Lobe: 3.5 x 1.9 x 1.3 cm Overall Parenchyma: heterogeneous Isthmus Thickness: 0.4 cm NODULES RIGHT: # of nodules measured on right: 0 LEFT: # of nodules measured on left: 0 ISTHMUS: # of nodules measured in the isthmus: 0 Bilateral neck scanned, no evidence of lymphadenopathy. No prominent masses or lesions visualized in left neck. IMPRESSION: No sizable thyroid nodules are seen. Correlate for thyroiditis.
== END | disposition home or self-care (01) ==
LOC: RADUSWWP 12:48
PROVIDERS: ATTEND Family Medicine
DX: R22.1 Localized swelling, mass and lump, neck (principal)
CPT/HCPCS: 76536

== ENCOUNTER 2020-10-10 10:30 | Inpatient (IN) | payer BC ==
[2020-10-10] MEDS ORDERED: ACETAMINOPHEN TAB 500 MG TAB PO STA (11:05)
--- NOTE | 2020-10-10 11:17 | ED ---
General Adult HPI - General Source: patient, RN notes reviewed Mode of arrival: ambulatory Limitations: no limitations <Rigoebrto Tyson - Last Filed: 10/10/20 14:20> <Sonya Sam - Last Filed: 10/11/20 22:28> - General Chief complaint: Shortness of Breath Stated complaint: Sent by PCP - O2 Level Check Time Seen by Provider: 10/10/20 10:46 - History of Present Illness Initial comments: 54-year-old female presents emergency Department chief complaint of shortness of breath. Patient states his started 5-6 days ago. Patient states that her PCP has been patient on steroids states is not helping she forgets to getting worse. Patient states that she had low oxygenation saturations at PCP and sent in for possible admission. Patient states that her family members have been diagnosed with covid. Patient states he has not been tested will assume to have it. Patient has not taken anything for her fever. She states she feels very fatigued, cannot ambulate without pain extremely short of breath. (Rigoberto Tyson) - Related Data Home Medications Medication Instructions Recorded Confirmed Losartan Potassium 50 mg PO BID 06/20/18 10/10/20 Atorvastatin [Lipitor] 40 mg PO HS 06/21/18 10/10/20 Triamterene-Hctz 37.5-25Mg 1 cap PO DAILY 06/21/18 10/10/20 [Dyazide 37.5-25 Capsule] Ergocalciferol (Vitamin D2) 50,000 units PO MO 12/01/18 10/10/20 [Vitamin D2] Dulaglutide [Trulicity] 1.5 mg SQ TU 10/10/20 10/10/20 metFORMIN HCL ER [Glucophage Xr] 500 mg PO DAILY 10/10/20 10/10/20 Allergies Allergy/AdvReac Type Severity Reaction Status Date / Time No Known Allergies Allergy Verified 10/10/20 12:19 Review of Systems ROS Other: All systems not noted in ROS Statement are negative. <Rigoberto Tyson - Last Filed: 10/10/20 14:20> ROS Other: All systems not noted in ROS Statement are negative. <Sonya Sam - Last Filed: 10/11/20 22:28> ROS Statement: Those systems with pertinent positive or pertinent negative responses have been documented in the HPI. Past Medical History Past Medical History: Diabetes Mellitus, Hypertension Additional Past Medical History / Comment(s): type II DM, history of palpitation s/tachycardis History of Any Multi-Drug Resistant Organisms: None Reported Past Surgical History: Section Past Anesthesia/Blood Transfusion Reactions: No Reported Reaction Past Psychological History: No Psychological Hx Reported Smoking Status: Never smoker Past Alcohol Use History: None Reported Past Drug Use History: None Reported - Past Family History Son(s) Family Medical History: Deep Vein Thrombosis (DVT) <Rigoberto Tyson - Last Filed: 10/10/20 14:20> General Exam Limitations: no limitations General appearance: alert, in no apparent distress Head exam: Present: atraumatic, normocephalic, normal inspection Eye exam: Present: normal appearance, PERRL, EOMI. Absent: scleral icterus, conjunctival injection, periorbital swelling ENT exam: Present: normal exam, mucous membranes moist Neck exam: Present: normal inspection, full ROM. Absent: tenderness, menin gismus, lymphadenopathy Respiratory exam: Present: decreased breath sounds. Absent: normal lung sounds bilaterally, respiratory distress, wheezes, rales, rhonchi, stridor Cardiovascular Exam: Present: regular rate, normal rhythm, normal heart sounds. Absent: systolic murmur, diastolic murmur, rubs, gallop, clicks Neurological exam: Present: alert, oriented X3, CN II-XII intact Skin exam: Present: warm, dry, intact, normal color. Absent: rash <Rigoberto Tyson M - Last Filed: 10/10/20 14:20> Course Vital Signs 10/10/20 10/10/20 10/10/20 10:47 11:22 11:24 Temperature 101.3 F H Pulse Rate 96 96 Respiratory 20 20 18 Rate Blood Pressure 149/84 147/88 O2 Sat by Pulse 93 L 93 L Oximetry 10/10/20 10/10/20 10/10/20 12:17 13:17 14:15 Temperature 99.8 F H Pulse Rate 85 Respiratory 18 20 Rate Blood Pressure 133/60 O2 Sat by Pulse 94 L 95 97 Oximetry 10/10/20 15:00 Temperature 98.4 F Pulse Rate 84 Respiratory 16 Rate Blood Pressure 111/65 O2 Sat by Pulse 97 Oximetry Medical Decision Making - Lab Data Result diagrams: 10/10/20 11:22 10/10/20 11:22 <Rigoberto Tyson - Last Filed: 10/10/20 14:20> - Lab Data Result diagrams: 10/11/20 05:55 10/11/20 05:55 <Sonya Sam - Last Filed: 10/11/20 22:28> - Medical Decision Making Case discussed with admitting physician. Patient be admitted for IV steroids, pulmonary consult. Patient is 92-94 on room air with exertional dyspnea, 97 2 L. Patient will be continued IV steroids. (Rigoberto Tyson) I was available for consultation in the emergency department. The history and physical exam were done by the midlevel provider. I was consulted for this patients care. I reviewed the case with the midlevel provider and based on their presentation of the patient, I agree with the assessment, medical decision making and plan of care as documented. Chart was dictated using swabr dictation software. Attempts were made to correct any dictation errors however some typographical errors may persist. Patient was seen during a national state of emergency due to the Covid-19 pandemic. (Sonya Sam) - Lab Data Lab Results 10/10/20 10/10/20 10/10/20 Range/Units 11:22 11:22 11:22 WBC 9.2 (3.8-10.6) k/uL RBC 4.66 (3.80-5.40) m/uL Hgb 13.4 (11.4-16.0) gm/dL Hct 39.7 (34.0-46.0) % MCV 85.1 (80.0-100.0) fL MCH 28.8 (25.0-35.0) pg MCHC 33.8 (31.0-37.0) g/dL RDW 13.7 (11.5-15.5) % Plt Count 289 (150-450) k/uL MPV 7.1 Neutrophils % 87 % Lymphocytes % 7 % Monocytes % 5 % Eosinophils % 0 % Basophils % 0 % Neutrophils # 8.0 H (1.3-7.7) k/uL Lymphocytes # 0.6 L (1.0-4.8) k/uL Monocytes # 0.4 (0-1.0) k/uL Eosinophils # 0.0 (0-0.7) k/uL Basophils # 0.0 (0-0.2) k/uL PT 9.8 (9.0-12.0) sec INR 0.9 (<1.2) APTT 20.9 L (22.0-30.0) sec D-Dimer 0.28 (<0.60) mg/L FEU Sodium 135 L (137-145) mmol/L Potassium 3.7 (3.5-5.1) mmol/L Chloride 96 L (98-107) mmol/L Carbon Dioxide 28 (22-30) mmol/L Anion Gap 11 mmol/L BUN 33 H (7-17) mg/dL Creatinine 0.99 (0.52-1.04) mg/dL Est GFR (CKD-EPI)AfAm 75 (>60 ml/min/1.73 sqM) Est GFR (CKD-EPI)NonAf 65 (>60 ml/min/1.73 sqM) Glucose 173 H (74-99) mg/dL Plasma Lactic Acid Raffi (0.7-2.0) mmol/L Calcium 9.6 (8.4-10.2) mg/dL Magnesium 1.9 (1.6-2.3) mg/dL Total Bilirubin 0.7 (0.2-1.3) mg/dL AST 43 H (14-36) U/L ALT 45 H (4-34) U/L Alkaline Phosphatase 59 (38-126) U/L Lactate Dehydrogenase 623 H (313-618) U/L C-Reactive Protein 21.9 H (<10.0) mg/L Total Protein 8.1 (6.3-8.2) g/dL Albumin 4.8 (3.5-5.0) g/dL Procalcitonin (0.02-0.09) ng/mL Coronavirus (PCR) (Not Detectd) 10/10/20 10/10/20 10/10/20 Range/Units 11:22 11:22 11:22 WBC (3.8-10.6) k/uL RBC (3.80-5.40) m/uL Hgb (11.4-16.0) gm/dL Hct (34.0-46.0) % MCV (80.0-100.0) fL MCH (25.0-35.0) pg MCHC (31.0-37.0) g/dL RDW (11.5-15.5) % Plt Count (150-450) k/uL MPV Neutrophils % % Lymphocytes % % Monocytes % % Eosinophils % % Basophils % % Neutrophils # (1.3-7.7) k/uL Lymphocytes # (1.0-4.8) k/uL Monocytes # (0-1.0) k/uL Eosinophils # (0-0.7) k/uL Basophils # (0-0.2) k/uL PT (9.0-12.0) sec INR (<1.2) APTT (22.0-30.0) sec D-Dimer (<0.60) mg/L FEU Sodium (137-145) mmol/L Potassium (3.5-5.1) mmol/L Chloride (98-107) mmol/L Carbon Dioxide (22-30) mmol/L Anion Gap mmol/L BUN (7-17) mg/dL Creatinine (0.52-1.04) mg/dL Est GFR (CKD-EPI)AfAm (>60 ml/min/1.73 sqM) Est GFR (CKD-EPI)NonAf (>60 ml/min/1.73 sqM) Glucose (74-99) mg/dL Plasma Lactic Acid Raffi 1.7 (0.7-2.0) mmol/L Calcium (8.4-10.2) mg/dL Magnesium (1.6-2.3) mg/dL Total Bilirubin (0.2-1.3) mg/dL AST (14-36) U/L ALT (4-34) U/L Alkaline Phosphatase (38-126) U/L Lactate Dehydrogenase (313-618) U/L C-Reactive Protein (<10.0) mg/L Total Protein (6.3-8.2) g/dL Albumin (3.5-5.0) g/dL Procalcitonin 0.10 H (0.02-0.09) ng/mL Coronavirus (PCR) Detected A (Not Detectd) Disposition <Rigoberto Tyson - Last Filed: 10/10/20 14:20> <Sonya Sam - Last Filed: 10/11/20 22:28> Clinical Impression: COVID-19 Disposition: ADMITTED IP TO THIS HOSP Condition: Fair
[2020-10-10 11:36] LABS: Basophils % (A) 0 %; Eosinophils % (A) 0 %; HCT 39.7 % (34.0-46.0); HGB 13.4 gm/dL (11.4-16.0); Lymphocytes # (A) 0.6 k/uL (1.0-4.8); Lymphocytes % (A) 7 %; MCH 28.8 pg (25.0-35.0); MCHC 33.8 g/dL (31.0-37.0); MCV 85.1 fL (80.0-100.0); Mean Platelet Volume 7.1; Monocytes # (A) 0.4 k/uL (0-1.0); Monocytes % (A) 5 %; Neutrophils % (A) 87 %; Platelet Count 289 k/uL (150-450); RBC 4.66 m/uL (3.80-5.40); RDW 13.7 % (11.5-15.5); WBC 9.2 k/uL (3.8-10.6)
[2020-10-10 12:00] LABS: Albumin 4.8 g/dL (3.5-5.0); C Reactive Protein 21.9 mg/L (<10.0); Calcium 9.6 mg/dL (8.4-10.2); Magnesium 1.9 mg/dL (1.6-2.3); Potassium 3.7 mmol/L (3.5-5.1); Total Bilirubin 0.7 mg/dL (0.2-1.3); Total Protein 8.1 g/dL (6.3-8.2)
--- NOTE | 2020-10-10 12:22 | XR ---
EXAMINATION TYPE: XR chest 2V DATE OF EXAM: 10/10/2020 COMPARISON: 06/20/2018 INDICATION: Short of breath, wet cough TECHNIQUE: Frontal and lateral views of the chest are obtained. FINDINGS: The heart size is normal. The pulmonary vasculature is normal. There is minimal subsegmental infiltrates present bilaterally. These are nonspecific. Differential co uld include atelectasis and atypical pneumonia.. IMPRESSION: 1. Bibasilar subsegmental infiltrate. Correlate for atelectasis or atypical pneumonia
[2020-10-10 13:38] LABS: INR 0.9 (<1.2); Prothrombin Time 9.8 sec (9.0-12.0)
[2020-10-10 13:39] LABS: Partial Thromboplastin Time 20.9 sec (22.0-30.0)
[2020-10-10] MEDS ORDERED: ACETAMINOPHEN TAB 325 MG TAB PO PRN (14:21)
[2020-10-10] MEDS ORDERED: NALOXONE 0.4 MG/ML 1 ML VIAL IV PRN (14:21)
[2020-10-10] MEDS ORDERED: DEXAMETHASONE SOD PHOSPHATE 10 MG/ML 1 ML VIAL IV STA (14:23)
--- NOTE | 2020-10-10 15:59 | CT ---
EXAMINATION TYPE: CT angio chest DATE OF EXAM: 10/10/2020 COMPARISON: Radiograph same day HISTORY: 54-year-old female Shortness of breath and cough. TECHNIQUE: Contiguous axial scanning of the chest performed with IV Contrast, patient injected with 1 00 mL of Isovue 370. Coronal/sagittal MIP reconstructions performed. CT DLP: 476.5 mGycm Automated exposure control for dose reduction was used. FINDINGS: The heart is borderline enlarged without pericardial effusion. No flattening of the interventricular septum or reflux of contrast into the hepatic veins. Aorta normal caliber with variant direct takeoff of the left vertebral artery directly from the aorti c arch. There is mild breathing motion but satisfactory opacification of the pulmonary arterial system. No de finite pulmonary embolus. No thoracic lymphadenopathy by CT size criteria. Lungs show patchy subpleural infiltrates and groundglass in the lower lungs. No pleural effusion. Lo w lung volumes. Moderate to severe hepatic steatosis in the visualized upper lungs. Bones: DISH within the lower thoracic spine. IMPRESSION: 1. Mild breathing motion. No definite pulmonary embolus. 2. Patchy subpleural infiltrates and groundglass in the lower lungs. Correlate for possible early COV ID pneumonia. 3. Moderate to severe hepatic steatosis.
[2020-10-10] MEDS: ALBUTEROL HFA INHALER INHALATION SCH ×2 (16:27→20:43)
--- NOTE | 2020-10-10 17:21 | HP ---
HISTORY AND PHYSICAL DATE OF SERVICE: 10/10/2020 CHIEF COMPLAINT: Shortness of breath. HISTORY OF PRESENT ILLNESS: This 54-year-old woman with a past medical history of multiple medical problems, including history of diabetes, hypertension, section, being followed by Dr. Rigoberto Correa in the outpatient setting, was complaining of shortness of breath and cough for the last 5 days. The patient had increasing symptoms. The patient was started on p.o. steroids in the outpatient setting. Dr. Correa is following the patient closely. Because of increased symptoms and difficulties, the patient did come to [facility] and was admitted for further evaluation and treatment. A chest x- ray was done which I reviewed personally. It showed bilateral pneumonia in the lower lobe. A chest CTA was done which was also reviewed personally by me. It showed mild to moderate hepatic steatosis. No evidence of any definite pulmonary embolism; however, bilateral patchy pneumonia suggestive of COVID pneumonia is being noted. The patient was admitted for further evaluation and treatment. There is no history of any fever, rigor or chills. No history of headache, loss of consciousness, seizures. PAST MEDICAL HISTORY: History of diabetes, hypertension, history of section, tachycardia. HOME MEDICATIONS: Vitamin D2, Lipitor, Glucophage, Dyazide, losartan, Trulicity. ALLERGIES: NONE. FAMILY HISTORY: History of DVT in the family. SOCIAL HISTORY: No history of smoking. No history of alcohol intake. REVIEW OF SYSTEMS: ENT: No diminished hearing. No diminished vision. CARDIOVASCULAR SYSTEM: No angina, palpitations. RESPIRATORY SYSTEM: As mentioned earlier. GI: As mentioned earlier. : No dysuria or retention. NERVOUS SYSTEM: No numbness, weakness. ALLERGY/IMMUNOLOGY: No asthma, hayfever. MUSCULOSKELETAL: As mentioned earlier. HEMATOLOGY/ONCOLOGY: No history of anemia. ENDOCRINE: Diabetes mellitus. CONSTITUTIONAL: As mentioned earlier. DERMATOLOGY: Negative. RHEUMATOLOGY: Negative. PSYCHIATRY: As mentioned earlier. PHYSICAL EXAMINATION: Patient alert and oriented x3. Pulse is 84, blood pressure 111/65, respiration 15, temperature 98.4, pulse ox 97% on 2 L. HEENT: Conjunctivae normal. NECK: No jugular venous distention. CARDIOVASCULAR SYSTEM: S1, S2 muffled. RESPIRATORY SYSTEM: Breath sounds diminished at the bases. A few scattered rhonchi. No crackles. ABDOMEN: Soft, non-tender. LEGS: No edema. No swelling. NERVOUS SYSTEM: No focal deficit. LABS: CBC within normal limits. Sodium 132, potassium 3.7. AST and ALT noted. COVID-19 is positive. ASSESSMENT: 1. Acute COVID-19 infection with bilateral interstitial pneumonia with possible sepsis, present on admission. 2. Hyponatremia. 3. Diabetes mellitus, type 2. 4. Increased AST, ALT. 5. Elevated LDH, CRP and elevated inflammatory markers of COVID. 6. History of hypertension. 7. History of palpitation, tachycardia. 8. Obesity with body mass index of 32.7. 9. FULL CODE. RECOMMENDATIONS AND DISCUSSION: In this 54-year-old woman who presented with multiple complex medical issues, we will monitor the patient closely, continue the current medication, continue symptomatic treatment. I recommend a procalcitonin. Also recommend pulmonary and infectious disease evaluations. Resume the home medication. Monitor blood sugars closely. We will add dexamethasone and zinc. Further recommendations to follow. A copy of this dictation is being forwarded to Dr. Correa, who is the primary physician. See orders for further details. MMODL / IJN: [id number] /
--- NOTE | 2020-10-10 17:31 | P.CNPUL ---
History of Present Illness Consult date: 10/10/20 Reason for consult: pneumonia Chief complaint: Cough and shortness of breath History of present illness: This is a 54-year-old female with history of hypertension, type 2 diabetes, dyslipidemia, patient was seen in the ER today with 5 days history of cough, cough is described as productive with whitish phlegm, and persistent. Patient also had some fever, chills, but she had no loss of sensation of taste or smell. Patient had no GI symptoms, no nausea no vomiting no diarrhea. She did feel generally fatigued, and she had generalized aches and pains. Chest x-ray on this evaluation in the ER showed bibasilar subsegmental atelectasis/infiltrates. CT of the chest showed patchy subpleural infiltrates and ground glass appearance in the lower lungs. Consistent with Covid 19 pneumonia. Patient did not require to be on oxygen, her O2 saturation was in the 90s on room air, she was placed on the Covid 19 cocktail, and we were asked to see her on consultation. Review of Systems Constitutional: Fever chills aches and pains and fatigue. Eyes: Negative ENT: Negative. Respiratory: Persistent cough and some shortness of breath. Cardiovascular: Negative. Endocrine: Negative. Gastrointestinal: Negative Genitourinary: Denies dysuria frequency urgency or hematuria. Musculoskeletal: Vague aches and pains. Skin: Negative. Neurological: Negative Past Medical History Past Medical History: Diabetes Mellitus, Hypertension Additional Past Medical History / Comment(s): type II DM, history of palpitations/tachycardis History of Any Multi-Drug Resistant Organisms: None Reported Past Surgical History: Section Past Anesthesia/Blood Transfusion Reactions: No Reported Reaction Past Psychological History: No Psychological Hx Reported Smoking Status: Never smoker Past Alcohol Use History: None Reported Past Drug Use History: None Reported - Past Family History Son(s) Family Medical History: Deep Vein Thrombosis (DVT) Medications and Allergies Home Medications Medication Instructions Recorded Confirmed Type Losartan Potassium 50 mg PO BID 06/20/18 10/10/20 History Atorvastatin [Lipitor] 40 mg PO HS 06/21/18 10/10/20 History Triamterene-Hctz 37.5-25Mg 1 cap PO DAILY 06/21/18 10/10/20 History [Dyazide 37.5-25 Capsule] Ergocalciferol (Vitamin D2) 50,000 units PO MO 12/01/18 10/10/20 History [Vitamin D2] Dulaglutide [Trulicity] 1.5 mg SQ TU 10/10/20 10/10/20 History metFORMIN HCL ER [Glucophage Xr] 500 mg PO DAILY 10/10/20 10/10/20 History Allergies Allergy/AdvReac Type Severity Reaction Status Date / Time No Known Allergies Allergy Verified 10/10/20 12:19 Physical Exam Vitals: Vital Signs Temp Pulse Resp BP Pulse Ox 10/10/20 15:00 98.4 F 84 16 111/65 97 10/10/20 14:15 20 97 10/10/20 13:17 95 10/10/20 12:17 99.8 F H 85 18 133/60 94 L 10/10/20 11:24 96 18 147/88 93 L 10/10/20 11:22 20 10/10/20 10:47 101.3 F H 96 20 149/84 93 L Intake and Output 10/10/20 10/10/20 10/10/20 06:59 14:59 22:59 Other: Weight 81.193 kg 81.193 kg Physical Exam: Revealed 54-year-old female in no distress, noted to have pe rsistent cough. Head: Atraumatic, normocephalic. HEENT:[Neck is supple.] [No neck masses.] [No thyromegaly.] [No JVD.] Chest: [Symmetrical chest expansion, fine crackles at the bases bilaterally. Cardiac Exam: [Normal S1 and S2, no S3 gallop, no murmur.] Abdomen: [Soft, nontender, no megaly, no rebound, no guarding, normal bowel sounds.] Extremities: [No clubbing, no edema, no cyanosis.] Neurological Exam: [No focal neurologic deficit.] Alert and oriented 3. Psychiatric: Normal mood, affect and normal mental status examination. Skin: No rashes. Results - Laboratory Findings CBC and BMP: 10/10/20 11:22 10/10/20 11:22 PT/INR, D-dimer PT 9.8 sec (9.0-12.0) 10/10/20 11: INR 0.9 (<1.2) 10/10/20 11:22 D-Dimer 0.28 mg/L FEU (<0.60) 10/10/20 11:22 Abnormal lab findings: Abnormal Labs 10/10/20 10/10/20 10/10/20 11:22 11:22 11:22 Neutrophils # 8.0 H Lymphocytes # 0.6 L APTT 20.9 L Sodium 135 L Chloride 96 L BUN 33 H Glucose 173 H AST 43 H ALT 45 H Lactate Dehydrogenase 623 H C-Reactive Protein 21.9 H Coronavirus (PCR) 10/10/20 11:22 Neutrophils # Lymphocytes # APTT Sodium Chloride BUN Glucose AST ALT Lactate Dehydrogenase C-Reactive Protein Coronavirus (PCR) Detected A - Diagnostic Findings Chest x-ray: image reviewed (As noted in HPI.) Assessment and Plan Assessment: Impression: Acute covid 19 pneumonitis. History of hypertension. Type 2 diabetes. Dyslipidemia. Recommendation: Continue the Covid 19 cocktail. Considering the patient is oxygenating well on room air, does not qualify for remdesivir Recommend that we continue the cocktail for Covid 19 infection, and will follow Time with Patient: Greater than 30
[2020-10-10] MEDS: LOSARTAN 50 MG TAB PO SCH (22:14)
[2020-10-10] MEDS: ATORVASTATIN 40 MG TAB PO SCH (22:14)
[2020-10-10] MEDS ORDERED: guaiFENesin-DM 100-10MG/5ML 10 ML CUP PO PRN (23:30)
[2020-10-10] MEDS: MELATONIN 3 MG TABLET PO SCH (23:57)
--- NOTE | 2020-10-11 00:12 | CONS ---
CONSULTATION DATE OF SERVICE: 10/10/2020 REASON FOR CONSULTATION: Covid 19 pneumonia. HISTORY OF PRESENT ILLNESS: The patient is a 54-year-old female presenting to the ER this morning for evaluation of increasing shortness of breath. The patient's symptoms have been going on for the last one week. This patient has been complaining of initial symptoms started with weakness, no energy and did have mild URI symptoms. Subsequent started having more shortness of breath on minimal exertion and also having a cough which has been mild to moderate intensity with occasional whitish sputum. Apparently for these reasons, the patient was evaluated by the PCP and the patient has been treated with IV steroids. She was noticed to have mild hypoxemia at the PCP office. With these symptoms, the patient was advised to go to the ER. On arrival to the ER, the patient did have a fever of 101.3 Fahrenheit, however, no significant hypoxemia. The patient was noted to be 95% on room air. Subsequently with 2 L, she is 97%. The patient did have a normal white count with evidence of lymphopenia. D-dimer was normal. Kidney function was normal. Liver enzymes are elevated. Procalcitonin is mildly. Elevated the patient did have a chest x-ray followed by CT angiogram of the chest which was negative for PE. However did show a patchy subpleural infiltrate ground glass in the lower lungs. The patient has been admitted to the hospital. Infectious Disease was consulted for further management of underlying Covid 19. REVIEW OF SYSTEMS: Positive points have been mentioned in HPI. Rest of systems are negative. PAST MEDICAL HISTORY: Hypertension, diabetes mellitus. PAST SURGICAL HISTORY: . SOCIAL HISTORY: Denies smoking, drinking drug use. FAMILY HISTORY: History of DVT. ALLERGIES: No known drug allergies. MEDICATIONS: Currently include the patient is on Tylenol, Ventolin, vitamin C, Lipitor, vitamin D3, dexamethasone, Lovenox, Glucophage, Narcan, and zinc. PHYSICAL EXAMINATION: Blood pressure is 111/65 with a pulse of 84. Temperature 98.4. She is 97% on 2 L nasal cannula. General description is a middle-aged female up in the bed in no distress. No tachypnea or accessory muscles of respiration use. HEENT: Examination shows no pallor or scleral icterus. Oral mucous membranes dry. Neck trachea central. No thyromegaly. Lungs unlabored breathing. Coarse breath sounds in the bases. No wheeze. Heart S1, S2. Regular rate and rhythm. Abdomen soft, no tenderness. No guarding. No rigidity. Extremities: No edema of the feet. Skin examination: No rash or mass palpable. Neurologically patient is awake, alert, oriented times three. Mood and affect normal. LABS: Hemoglobin 13.4, white count 9.2, D-dimer 0.28, BUN of 33, creatinine 0.99. Liver enzymes elevated. IMPRESSION/PLAN: Patient admitted to hospital with fever, increased shortness of breath and cough. This patient did have acute COVID-19 pneumonia with evidence of bilateral multifocal infiltrate in this patient did not have significant hypoxemia. She has been saturating 95% on room air and possible mild Covid 19 infection. Hopefully should be covered with supportive treatment of steroids and anticoagulation and with no documented hypoxemia she will not qualify for Remdesivir therapy. PLAN: 1. Dexamethasone 6 mg daily along with Lovenox 40 and zinc sulfate. 2. Droplet isolation and respiratory support. 3. We will follow on clinical condition and further adjust medication if needed. Thank you for this consultation. We will follow the patient along with you. MMODL / IJN: [id number] /
[2020-10-11 06:46] LABS: Basophils # (A) 0.1 k/uL (0-0.2); Basophils % (A) 1 %; Eosinophils % (A) 0 %; HCT 37.9 % (34.0-46.0); HGB 12.8 gm/dL (11.4-16.0); Lymphocytes # (A) 0.6 k/uL (1.0-4.8); Lymphocytes % (A) 11 %; MCH 29.5 pg (25.0-35.0); MCHC 33.8 g/dL (31.0-37.0); MCV 87.2 fL (80.0-100.0); Mean Platelet Volume 7.3; Monocytes # (A) 0.4 k/uL (0-1.0); Monocytes % (A) 6 %; Neutrophils # (A) 4.7 k/uL (1.3-7.7); Neutrophils % (A) 80 %; Platelet Count 287 k/uL (150-450); RBC 4.35 m/uL (3.80-5.40); RDW 13.4 % (11.5-15.5); WBC 5.9 k/uL (3.8-10.6)
[2020-10-11 07:34] LABS: Glucose,Whole Blood 178 mg/dL (75-99)
[2020-10-11] MEDS: ALBUTEROL HFA INHALER INHALATION SCH ×4 (07:53→19:58)
[2020-10-11] MEDS: INSULIN ASPART (NovoLOG) 100 UNIT/ML VIAL SQ SCH ×4 (08:50→21:14)
[2020-10-11] MEDS: ZINC SULFATE 220 MG CAP PO SCH (08:52)
[2020-10-11] MEDS: ASCORBIC ACID 500 MG TAB PO SCH (08:52)
[2020-10-11] MEDS: CHOLECALCIFEROL 400 UNIT TAB PO SCH (08:53)
[2020-10-11] MEDS: dexAMETHasone 2 MG TAB PO SCH (08:53)
[2020-10-11] MEDS: LOSARTAN 50 MG TAB PO SCH ×2 (08:53→21:14)
[2020-10-11] MEDS: metFORMIN 500 MG TAB PO SCH ×2 (08:53→21:17)
[2020-10-11] MEDS: TRIAMTERENE-HCTZ 37.5-25MG 1 EACH CAP PO SCH (08:53)
[2020-10-11] MEDS: ENOXAPARIN 40 MG/0.4 ML SYRINGE SQ SCH (08:54)
[2020-10-11 11:11] LABS: Anion Gap 16.1 mmol/L (4.00-12.00); Calcium 9.4 mg/dL (8.7-10.3); Carbon Dioxide 24.9 mmol/L (21.6-31.8)
[2020-10-11 11:30] LABS: African American GFR (CKD) 53.9 (60.0-200.0); BUN/Creat Ratio 33.85 Ratio (12.00-20.00); Non-African American GFR(CKD) 46.5 (60.0-200.0)
[2020-10-11 11:50] LABS: Glucose,Whole Blood 227 mg/dL (75-99)
[2020-10-11] MEDS: Dulaglutide [Trulicity] 1.5 MG/0.5 ML Pen.Injctr SQ SCH (11:54)
--- NOTE | 2020-10-11 14:08 | P.PN ---
Subjective Progress Note Date: 10/11/20 Principal diagnosis: COVID 19 infection This is a 54-year-old female with history of hypertension, type 2 diabetes, dyslipidemia, patient was seen in the ER today with 5 days history of cough, cough is described as productive with whitish phlegm, and persistent. Patient also had some fever, chills, but she had no loss of sensation of taste or smell. Patient had no GI symptoms, no nausea no vomiting no diarrhea. She did feel generally fatigued, and she had generalized aches and pains. Chest x-ray on this evaluation in the ER showed bibasilar subsegmental atelectasis/infiltrates. CT of the chest showed patchy subpleural infiltrates and ground glass appearance in the lower lungs. Consistent with Covid 19 pneumonia. Patient did not require to be on oxygen, her O2 saturation was in the 90s on room air, she was placed on the Covid 19 cocktail, and we were asked to see her on consultation. On 10/11/2020 patient seen in follow-up in medical, she is doing better, cough is improving, she is currently on room air, her pulse is 92%, clinically remains stable, still low-grade fever this morning, with a temp of 99.5F, hemodynamically she has been stable, no complaint of chest discomfort. She continues on oral Decadron, prophylactic dose of Lovenox, no labs, no chest x- rays today. Overall feeling better today. Objective - Vital Signs Vital signs: Vital Signs Temp 99.5 F 10/11/20 10:47 Pulse 78 10/11/20 10:47 Resp 16 10/11/20 10:47 BP 111/65 10/11/20 10:47 Pulse Ox 92 L 10/11/20 10:47 Intake & Output 10/10/20 10/11/20 10/11/20 18:59 06:59 18:59 Intake Total 200 Balance 200 Weight 81.193 kg Intake: Oral 200 Other: Voiding Method Toilet Toilet # Voids 2 - Exam Physical Exam: Revealed 54-year-old female in no distress, noted to have persistent cough. Head: Atraumatic, normocephalic. HEENT:[Neck is supple.] [No neck masses.] [No thyromegaly.] [No JVD.] Chest: [Symmetrical chest expansion, fine crackles at the bases bilaterally. Cardiac Exam: [Normal S1 and S2, no S3 gallop, no murmur.] Abdomen: [Soft, nontender, no megaly, no rebound, no guarding, normal bowel sounds.] Extremities: [No clubbing, no edema, no cyanosis.] Neurological Exam: [No focal neurologic deficit.] Alert and oriented 3. Psychiatric: Normal mood, affect and normal mental status examination. Skin: No rashes. - Labs CBC & Chem 7: 10/11/20 05:55 10/11/20 05:55 Labs: Abnormal Lab Results - Last 24 Hours (Table) 10/10/20 10/11/20 10/11/20 Range/Units 11:22 05:55 05:55 Lymphocytes # 0.6 L (1.0-4.8) k/uL Chloride 94 L (96-109) mmol/L Anion Gap 16.10 H (4.00-12.00) mmol/L BUN 44.0 H (9.0-27.0) mg/dL Est GFR (CKD-EPI)AfAm 53.9 L (60.0-200.0) Est GFR (CKD-EPI)NonAf 46.5 L (60.0-200.0) BUN/Creatinine Ratio 33.85 H (12.00-20.00) Ratio Glucose 234 H (70-110) mg/dL POC Glucose (mg/dL) (75-99) mg/dL Procalcitonin 0.10 H (0.02-0.09) ng/mL 10/11/20 10/11/20 Range/Units 07:31 11:43 Lymphocytes # (1.0-4.8) k/uL Chloride (96-109) mmol/L Anion Gap (4.00-12.00) mmol/L BUN (9.0-27.0) mg/dL Est GFR (CKD-EPI)AfAm (60.0-200.0) Est GFR (CKD-EPI)NonAf (60.0-200.0) BUN/Creatinine Ratio (12.00-20.00) Ratio Glucose (70-110) mg/dL POC Glucose (mg/dL) 178 H 227 H (75-99) mg/dL Procalcitonin (0.02-0.09) ng/mL Assessment and Plan Plan: Acute covid 19 pneumonitis. History of hypertension. Type 2 diabetes. Dyslipidemia. Plan: Continue current medical treatment, continue oral steroids, prophylactic anticoagulation, and vitamins, she is feeling better, no acute events overnight, she still on room air, probably can be considered for discharge home if she remains stable. I performed a history & physical examination of the patient and discussed their management with my nurse practitioner, Varsha Gomes. I reviewed the nurse practitioner's note and agree with the documented findings and plan of care. Lung sounds are positive for bilateral crackles throughout the lung jiménez. The findings and the impression was discussed with the patient. I attest to the documentation by the nurse practitioner. Time with Patient: Less than 30
[2020-10-11 17:17] LABS: Glucose,Whole Blood 317 mg/dL (75-99)
--- NOTE | 2020-10-11 18:08 | PN ---
PROGRESS NOTE DATE OF SERVICE: 10/11/2020 This 54-year-old woman who was admitted with acute COVID-19 infection has bilateral interstitial pneumonia with possible sepsis. She is being closely monitored at this time. The patient is started on zinc and dexamethasone and Lovenox. The inflammatory markers are still elevated at this time. Glucose is 234. COVID-19 is positive. The patient is 90% on room air. Chest CTA, which I personally reviewed, showed no evidence of pulmonary embolism, but the patient has evidence of bilateral interstitial patchy pneumonia. Past medical history reviewed. REVIEW OF SYSTEMS: CARDIOVASCULAR SYSTEM: No angina, palpitations. RESPIRATORY SYSTEM: As mentioned earlier. GI: As mentioned earlier. : No dysuria or retention. NERVOUS SYSTEM: No numbness, weakness. CURRENT MEDICATIONS: Reviewed. They include Tylenol, Ventolin, Lipitor, Hexadrol, Lovenox, melatonin, Glucophage, zinc. Doses are reviewed. PHYSICAL EXAMINATION: Patient is alert, oriented x3. The pulse is 76, blood pressure 130/70, respiration 20, temperature 99 degrees, pulse ox 90% on room air. HEENT: Conjunctivae normal. NECK: No jugular venous distention. CARDIOVASCULAR SYSTEM: S1, S2 muffled. RESPIRATORY SYSTEM: Breath sounds diminished at the bases. Bilateral scattered rhonchi and crackles. ABDOMEN: Soft, non-tender. NERVOUS SYSTEM: No focal deficit. LABS: WBC 5.9, hemoglobin 12.8. Sodium 130, potassium 4. Accu-Cheks are noted. ASSESSMENT: 1. Acute COVID-19 infection with bilateral interstitial pneumonia with possible sepsis, present on admission, possibly superadded pneumonia. 2. Elevated procalcitonin. 3. Hyponatremia. 4. Diabetes mellitus, type 2. 5. Increased AST, ALT. 6. Elevated LDH, CRP and elevated inflammatory markers of COVID-19. 7. History of hypertension. 8. History of palpitations, tachycardia. 9. Obesity with body mass index of 32.7. 10.FULL CODE. RECOMMENDATIONS AND DISCUSSION: I recommend to continue current medications, continue with the monitoring, symptomatic treatment. Continue the Lovenox, dexamethasone and zinc. The patient does not qualify for remdesivir because of lack of documented per Dr. Florian. Will continue to monitor. Guarded prognosis. I would also recommend a short course of antibiotics. Further recommendations to follow. MMODL / IJN: [id number] / MTDD
[2020-10-11 21:03] LABS: Glucose,Whole Blood 338 mg/dL (75-99)
[2020-10-11] MEDS: ATORVASTATIN 40 MG TAB PO SCH (21:14)
[2020-10-11] MEDS: MELATONIN 3 MG TABLET PO SCH (21:14)
--- NOTE | 2020-10-12 04:13 | PN ---
PROGRESS NOTE DATE OF SERVICE: 10/11/2020 REASON FOR FOLLOWUP: COVID-19 pneumonia. INTERVAL HISTORY: The patient is currently afebrile. The patient is breathing more comfortably. The patient denies having any chest pain. She did have a cough, not bringing up any sputum. Still complaining of shortness of breath with No nausea, vomiting, abdominal pain or diarrhea. PHYSICAL EXAMINATION: Blood pressure 123/77 with a pulse of 83, temperature 99, she is 94% on room air. General description is a middle-aged female up in the chair in no distress. Respiratory system: Unlabored breathing. Few fine crackles at the bases. Heart S1, S2. Regular rate. ABDOMEN: Soft, no tenderness. EXTREMITIES: No edema of the feet. LABS: Hemoglobin is 12.8, white count 5.9. BUN of 44, creatinine 1.3. DIAGNOSTIC IMPRESSION AND PLAN: Patient with acute COVID-19 pneumonia in this patient who seemed to have shown some overall clinical improvement. The patient is currently on room air to continue with steroids, Lovenox and zinc, along with respiratory support. Monitor clinical course closely. MMODL / IJN: [id number] / SAMAN
[2020-10-12 06:57] LABS: Basophils # (A) 0.1 k/uL (0-0.2); Basophils % (A) 1 %; Eosinophils % (A) 0 %; HCT 38.3 % (34.0-46.0); Lymphocytes # (A) 0.9 k/uL (1.0-4.8); Lymphocytes % (A) 11 %; MCH 29.2 pg (25.0-35.0); MCHC 33.9 g/dL (31.0-37.0); Mean Platelet Volume 7.1; Monocytes # (A) 0.5 k/uL (0-1.0); Monocytes % (A) 5 %; Neutrophils # (A) 7.2 k/uL (1.3-7.7); Neutrophils % (A) 81 %; Platelet Count 358 k/uL (150-450); RBC 4.46 m/uL (3.80-5.40); RDW 13.4 % (11.5-15.5); WBC 8.8 k/uL (3.8-10.6)
[2020-10-12 07:03] LABS: Glucose,Whole Blood 112 mg/dL (75-99)
[2020-10-12 07:08] LABS: African American GFR (CKD) 69 (>60 ml/min/1.73 sqM); Anion Gap 13 mmol/L; Blood Urea Nitrogen 51 mg/dL (7-17); Carbon Dioxide 26 mmol/L (22-30); Chloride 97 mmol/L (98-107); Glucose 121 mg/dL (74-99); Non-African American GFR(CKD) 60 (>60 ml/min/1.73 sqM); Sodium 136 mmol/L (137-145)
[2020-10-12] MEDS: INSULIN ASPART (NovoLOG) 100 UNIT/ML VIAL SQ SCH ×4 (07:11→20:48)
[2020-10-12] MEDS: ALBUTEROL HFA INHALER INHALATION SCH ×4 (07:22→19:57)
[2020-10-12] MEDS: ENOXAPARIN 40 MG/0.4 ML SYRINGE SQ SCH (08:57)
[2020-10-12] MEDS: ZINC SULFATE 220 MG CAP PO SCH (08:58)
[2020-10-12] MEDS: CHOLECALCIFEROL 400 UNIT TAB PO SCH (08:58)
[2020-10-12] MEDS: metFORMIN 500 MG TAB PO SCH ×2 (08:58→20:45)
[2020-10-12] MEDS: LOSARTAN 50 MG TAB PO SCH ×2 (08:58→20:45)
[2020-10-12] MEDS: dexAMETHasone 2 MG TAB PO SCH (08:58)
[2020-10-12] MEDS: TRIAMTERENE-HCTZ 37.5-25MG 1 EACH CAP PO SCH (08:58)
[2020-10-12] MEDS: ASCORBIC ACID 500 MG TAB PO SCH (08:58)
[2020-10-12 11:37] LABS: Glucose,Whole Blood 163 mg/dL (75-99)
--- NOTE | 2020-10-12 12:01 | XR ---
EXAMINATION TYPE: XR chest 1V portable DATE OF EXAM: 10/12/2020 COMPARISON: 10/10/2020 INDICATION: Covid short of breath cough TECHNIQUE: Single frontal view of the chest is obtained. FINDINGS: The heart size is normal. The pulmonary vasculature is normal. Mild bibasilar infiltrates are present, slightly greater at the left base IMPRESSION: 1. Mild bibasilar infiltrates greater at the left base can't be confirmed compatible with atypical pn eumonia.
--- NOTE | 2020-10-12 13:56 | P.PN ---
Subjective Progress Note Date: 10/12/20 Principal diagnosis: COVID 19 infection This is a 54-year-old female with history of hypertension, type 2 diabetes, dyslipidemia, patient was seen in the ER today with 5 days history of cough, cough is described as productive with whitish phlegm, and persistent. Patient also had some fever, chills, but she had no loss of sensation of taste or smell. Patient had no GI symptoms, no nausea no vomiting no diarrhea. She did feel generally fatigued, and she had generalized aches and pains. Chest x-ray on this evaluation in the ER showed bibasilar subsegmental atelectasis/infiltrates. CT of the chest showed patchy subpleural infiltrates and ground glass appearance in the lower lungs. Consistent with Covid 19 pneumonia. Patient did not require to be on oxygen, her O2 saturation was in the 90s on room air, she was placed on the Covid 19 cocktail, and we were asked to see her on consultation. On 10/11/2020 patient seen in follow-up in medical, she is doing better, cough is improving, she is currently on room air, her pulse is 92%, clinically remains stable, still low-grade fever this morning, with a temp of 99.5F, hemodynamically she has been stable, no complaint of chest discomfort. She continues on oral Decadron, prophylactic dose of Lovenox, no labs, no chest x- rays today. Overall feeling better today. On 11/01/2020 patient seen in follow-up on medical surgical floor, she is currently on room air pulse ox of 92%, denies any worsening dyspnea, does have a low-grade fever this morning with a temp of 99.8F, she is having to the bathroom and within the room, tolerating activity fairly well, her main complaint is persistent coughing, and last night patient had a significant coughing jag. Today's chest x-ray shows mild bibasilar infiltrates greater on the left base. Labs reviewed, showing d-dimer 0.30, leukocyte count of 0.9, the rest of the CBC was within normal limits, sodium 136, potassium 4.0, chloride is 97, BUN 51 and creatinine is 1.06. Patient remains on oral Decadron, empiric Rocephin, and prophylactic Lovenox. Objective - Vital Signs Vital signs: Vital Signs Temp 99.8 F H 10/12/20 10:21 Pulse 74 10/12/20 10:21 Resp 17 10/12/20 10:21 BP 123/77 10/12/20 10:21 Pulse Ox 92 L 10/12/20 10:21 Intake & Output 10/11/20 10/12/20 10/12/20 18:59 06:59 18:59 Intake Total 400 480 Balance 400 480 Intake: Oral 400 480 Other: # Voids 2 2 - Exam GENERAL EXAM: Alert, very pleasant, 54-year-old white female on room air, with pulse ox of 92%, comfortable in no apparent distress. HEAD: Normocephalic/atraumatic. EYES: Normal reaction of pupils, equal size. Conjunctiva pink, sclera white. NOSE: Clear with pink turbinates. THROAT: No erythema or exudates. NECK: No masses, no JVD, no thyroid enlargement, no adenopathy. CHEST: No chest wall deformity. Symmetrical expansion. LUNGS: Equal air entry with bilateral crackles, but no wheeze, rhonchi or dullness. CVS: Regular rate and rhythm, normal S1 and S2, no gallops, no murmurs, no rubs ABDOMEN: Soft, nontender. No hepatosplenomegaly, normal bowel sounds, no guarding or rigidity. EXTREMITIES: No clubbing, no edema, no cyanosis, 2+ pulses and upper and lower extremities. MUSCULOSKELETAL: Muscle strength and tone normal. SPINE: No scoliosis or deformity SKIN: No rashes CENTRAL NERVOUS SYSTEM: Alert and oriented -3. No focal deficits, tone is normal in all 4 extremities. PSYCHIATRIC: Alert and oriented -3. Appropriate affect. Intact judgment and insight. - Labs CBC & Chem 7: 10/12/20 06:20 10/12/20 06:20 Labs: Abnormal Lab Results - Last 24 Hours (Table) 10/11/20 10/11/20 10/12/20 Range/Units 17:12 21:01 06:20 Lymphocytes # 0.9 L (1.0-4.8) k/uL Sodium (137-145) mmol/L Chloride (98-107) mmol/L BUN (7-17) mg/dL Creatinine (0.52-1.04) mg/dL Glucose (74-99) mg/dL POC Glucose (mg/dL) 317 H 338 H (75-99) mg/dL 10/12/20 10/12/20 10/12/20 Range/Units 06:20 07:01 11:35 Lymphocytes # (1.0-4.8) k/uL Sodium 136 L (137-145) mmol/L Chloride 97 L (98-107) mmol/L BUN 51 H (7-17) mg/dL Creatinine 1.06 H (0.52-1.04) mg/dL Glucose 121 H (74-99) mg/dL POC Glucose (mg/dL) 112 H 163 H (75-99) mg/dL Assessment and Plan Plan: Assessment: #1. Acute COVID 19 pneumonitis, patient has not requiring supplemental oxygen, she is being treated with a combination of oral steroids, vitamins #2. Cough, shortness of breath related to the above #3. Type 2 diabetes mellitus #4. History of hypertension #5. Dyslipidemia #6. Never smoker Plan: Today's chest x-ray has been reviewed, showing mild bibasilar infiltrates greater at the left base, patient is still on room air, denies any worsening dyspnea by is complaining of persistent cough. Continue with the steroids, and vitamins, continue prophylactic Lovenox, we'll order Robitussin-AC every 6 hours [id number] for persistent cough. Increase activity as tolerated, possible discharge in next 24 hours if remaines stable. I performed a history & physical examination of the patient and discussed their management with my nurse practitioner, Varsha Gomes. I reviewed the nurse practitioner's note and agree with the documented findings and plan of care. Lung sounds are positive for bilateral crackles throughout the lung jiménez. The findings and the impression was discussed with the patient. I attest to the documentation by the nurse practitioner. Time with Patient: Less than 30
[2020-10-12 16:12] LABS: Glucose,Whole Blood 373 mg/dL (75-99)
--- NOTE | 2020-10-12 16:15 | PN ---
PROGRESS NOTE DATE OF SERVICE: 10/12/2020 This is a 54-year-old woman admitted with COVID-19 interstitial pneumonia has taken a turn for the worse today. The patient is feeling tired. The patient started running a fever. Patient has shortness of breath. The patient also had possible sepsis, present on admission. is 0.10. The patient is also started on Rocephin at this time. Dr. Florian and Dr. Ren is following the patient closely. PAST MEDICAL HISTORY: Reviewed. REVIEW OF SYSTEMS: CARDIOVASCULAR SYSTEM: No angina. RESPIRATORY SYSTEM: As mentioned earlier. GI: As mentioned earlier. : No dysuria. NERVOUS SYSTEM: No numbness or weakness. CURRENT MEDICATIONS: Current medications are reviewed and include: Tylenol, Ventolin, Lipitor, Rocephin, Hexadrol, Lovenox, Vitamin D2, Robitussin, Cozaar, Melatonin. PHYSICAL EXAMINATION: The patient is alert and oriented x3. Pulse is 74, blood pressure 123/77, respirations 17, temperature 99.8, pulse ox 90% on room air. HEENT: Conjunctivae normal. NECK: No jugular venous distention. CARDIOVASCULAR: S1, S2 muffled. RESPIRATORY: Breath sounds diminished at the bases. Bilateral scattered rhonchi. ABDOMEN: Soft, nontender. NERVOUS SYSTEM: No focal deficits. LABS: 0.9. Sodium is 136 and creatinine is 1.06. ASSESSMENT: 1. Acute COVID-19 infection with bilateral interstitial pneumonia with possible sepsis and acute hypoxic respiratory failure with possible pneumonia, present on admission. 2. Elevated procalcitonin. 3. Acute renal failure with acute tubular necrosis, prerenal factors. 4. Hyponatremia. 5. Diabetes mellitus type 2. 6. Increased AST, ALT. 7. Increased LDH, CRP, elevated inflammatory markers of COVID-19. 8. Hypertension history. 9. History of palpitation, tachycardia. 10.Obesity with body mass of 32.7. 11.FULL CODE. RECOMMENDATIONS AND DISCUSSION: Recommend to continue current medication, continue symptomatic treatment. Continue bronchodilators. Continue steroids. Continue Lovenox. Monitor labs closely. I also discussed with Dr. Florian to consider remdesivir. Continue the rest of medications. Prognosis extremely guarded because of multiple complex medical issues and further recommendations to follow. Please note, CT did not show any evidence of any pulmonary embolism. Otherwise, the CTA chest was reviewed personally by me otherwise showed bilateral infiltrates at that time. Further recommendations to follow. Prognosis guarded. See orders for further details. MMODL / IJN: [id number] / SAMAN
[2020-10-12] MEDS ORDERED: REMDESIVIR 200 MG in SODIUM CHLORIDE 0.9% 250 ML IVPB ONE (17:00)
[2020-10-12] MEDS: guaiFENesin-Coden 100-10MG/5ML 10 ML CUP PO SCH ×2 (17:33→20:45)
[2020-10-12] MEDS: FAMOTIDINE 20 MG TAB PO SCH (20:45)
[2020-10-12] MEDS: ATORVASTATIN 40 MG TAB PO SCH (20:45)
[2020-10-12] MEDS: MELATONIN 3 MG TABLET PO SCH (20:45)
[2020-10-12 20:56] LABS: Glucose,Whole Blood 265 mg/dL (75-99)
--- NOTE | 2020-10-12 23:05 | PN ---
PROGRESS NOTE DATE OF SERVICE: 10/12/2020 REASON FOR FOLLOWUP: COVID-19 pneumonia. INTERVAL HISTORY: Patient is currently afebrile. She is not feeling that good today. Has been complaining of more shortness of breath and cough and is not bringing up any sputum. No nausea. No vomiting. No abdominal pain. No diarrhea. PHYSICAL EXAMINATION: Blood pressure 106/65, pulse of 64, temperature 98.9. She is 98% on room air. General description is a middle-aged female lying in bed in no distress. Respiratory system: Unlabored breathing, decreased intensity of the breath sounds. No wheeze. Heart S1, S2. Regular rate and rhythm. ABDOMEN: Soft. No tenderness. LABS: Hemoglobin 13.1, white count 8.8. BUN of 51, creatinine 1.06. IMPRESSION/PLAN: Patient with acute COVID-19 pneumonia in this patient noticed to have slight worsening of her clinical condition. We will go ahead and add Remdesivir in addition to Dexamethasone, Lovenox and zinc and respiratory support. Plan of care discussed with Pulmonary. Continue supportive care. MMODL / IJN: [id number] /
[2020-10-13] MEDS: guaiFENesin-Coden 100-10MG/5ML 10 ML CUP PO SCH ×2 (01:28→07:50)
[2020-10-13 06:26] LABS: Basophils # (A) 0.1 k/uL (0-0.2); Basophils % (A) 1 %; Eosinophils % (A) 0 %; HCT 35.9 % (34.0-46.0); HGB 12.4 gm/dL (11.4-16.0); Lymphocytes # (A) 0.9 k/uL (1.0-4.8); Lymphocytes % (A) 12 %; MCH 29.3 pg (25.0-35.0); MCHC 34.6 g/dL (31.0-37.0); MCV 84.8 fL (80.0-100.0); Mean Platelet Volume 7.1; Monocytes # (A) 0.5 k/uL (0-1.0); Monocytes % (A) 6 %; Neutrophils # (A) 6.3 k/uL (1.3-7.7); Neutrophils % (A) 79 %; Platelet Count 374 k/uL (150-450); RBC 4.23 m/uL (3.80-5.40); RDW 13.3 % (11.5-15.5)
[2020-10-13 07:04] LABS: Glucose,Whole Blood 93 mg/dL (75-99)
[2020-10-13] MEDS: ALBUTEROL HFA INHALER INHALATION SCH ×4 (07:34→19:18)
[2020-10-13] MEDS: INSULIN ASPART (NovoLOG) 100 UNIT/ML VIAL SQ SCH ×4 (07:38→20:46)
[2020-10-13] MEDS: LOSARTAN 50 MG TAB PO SCH ×2 (07:48→20:46)
[2020-10-13] MEDS: ASCORBIC ACID 500 MG TAB PO SCH (07:48)
[2020-10-13] MEDS: metFORMIN 500 MG TAB PO SCH ×2 (07:48→20:45)
[2020-10-13] MEDS: ZINC SULFATE 220 MG CAP PO SCH (07:48)
[2020-10-13] MEDS: FAMOTIDINE 20 MG TAB PO SCH (07:49)
[2020-10-13] MEDS: ENOXAPARIN 40 MG/0.4 ML SYRINGE SQ SCH (07:49)
[2020-10-13] MEDS: DEXAMETHASONE SOD PHOSPHATE 10 MG/ML 1 ML VIAL IV SCH (07:50)
[2020-10-13] MEDS: CHOLECALCIFEROL 400 UNIT TAB PO SCH (07:50)
[2020-10-13] MEDS: TRIAMTERENE-HCTZ 37.5-25MG 1 EACH CAP PO SCH (07:51)
[2020-10-13 10:10] LABS: African American GFR (CKD) 65.9 (60.0-200.0); Anion Gap 13.8 mmol/L (4.00-12.00); BUN/Creat Ratio 46.36 Ratio (12.00-20.00); Calcium 9.7 mg/dL (8.7-10.3); Carbon Dioxide 27.2 mmol/L (21.6-31.8); Non-African American GFR(CKD) 56.9 (60.0-200.0); Potassium 4.2 mmol/L (3.5-5.5)
[2020-10-13] MEDS ORDERED: guaiFENesin-Coden 100-10MG/5ML 10 ML CUP PO PRN (10:30)
[2020-10-13 11:32] LABS: Glucose,Whole Blood 211 mg/dL (75-99)
[2020-10-13] MEDS: THIAMINE 100 MG TAB PO SCH (12:09)
[2020-10-13] MEDS: MULTIVITAMINS, THERA 1 EACH TAB PO SCH (12:09)
[2020-10-13] MEDS: FOLIC ACID 1 MG TAB PO SCH (12:10)
--- NOTE | 2020-10-13 13:12 | P.PN ---
Subjective Progress Note Date: 10/13/20 Principal diagnosis: CoVID 19 pneumonitis This is a 54-year-old female with history of hypertension, type 2 diabetes, dyslipidemia, patient was seen in the ER today with 5 days history of cough, cough is described as productive with whitish phlegm, and persistent. Patient also had some fever, chills, but she had no loss of sensation of taste or smell. Patient had no GI symptoms, no nausea no vomiting no diarrhea. She did feel generally fatigued, and she had generalized aches and pains. Chest x-ray on this evaluation in the ER showed bibasilar subsegmental atelectasis/infiltrates. CT of the chest showed patchy subpleural infiltrates and ground glass appearance in the lower lungs. Consistent with Covid 19 pneumonia. Patient did not require to be on oxygen, her O2 saturation was in the 90s on room air, she was placed on the Covid 19 cocktail, and we were asked to see her on consultation. On 10/11/2020 patient seen in follow-up in medical, she is doing better, cough is improving, she is currently on room air, her pulse is 92%, clinically remains stable, still low-grade fever this morning, with a temp of 99.5F, hemodynamically she has been stable, no complaint of chest discomfort. She continues on oral Decadron, prophylactic dose of Lovenox, no labs, no chest x- rays today. Overall feeling better today. On 11/01/2020 patient seen in follow-up on medical surgical floor, she is currently on room air pulse ox of 92%, denies any worsening dyspnea, does have a low-grade fever this morning with a temp of 99.8F, she is having to the bathroom and within the room, tolerating activity fairly well, her main complaint is persistent coughing, and last night patient had a significant coughing jag. Today's chest x-ray shows mild bibasilar infiltrates greater on the left base. Labs reviewed, showing d-dimer 0.30, leukocyte count of 0.9, the rest of the CBC was within normal limits, sodium 136, potassium 4.0, chloride is 97, BUN 51 and creatinine is 1.06. Patient remains on oral Decadron, empiric Rocephin, and prophylactic Lovenox. The patient is seen today 04/02/2021 follow-up on the regular medical floor. She is currently sitting up in a chair at the bedside. Awake and alert in no acute distress. Coughing a little S today. She was started on Remdesivir yesterday by infectious disease. This is day #2. Her main complaint is that of continued weakness. Maintaining O2 saturations in the 90s on room air. She's afebrile. White count 8.0. Hemoglobin 12.4. Lymphocytes 0.9. Sodium 139. Potassium 4.2. Creatinine 1.1. She remains on dexamethasone, Lovenox, Pepcid, melatonin, vitamin supplements. Antibiotics in the form of ceftriaxone. Objective - Vital Signs Vital signs: Vital Signs Temp 98.6 F 10/13/20 08:00 Pulse 76 10/13/20 08:00 Resp 16 10/13/20 08:00 BP 105/68 10/13/20 08:00 Pulse Ox 89 L 10/13/20 08:00 Intake & Output 10/12/20 10/13/20 10/13/20 18:59 06:59 18:59 Intake Total 560 Balance 560 Intake: Oral 560 Other: Voiding Method Toilet # Voids 3 1 - Exam GENERAL EXAM: Alert, very pleasant, 54-year-old female patient on room air, with pulse ox of 90%, comfortable in no apparent distress. HEAD: Normocephalic/atraumatic. EYES: Normal reaction of pupils, equal size. Conjunctiva pink, sclera white. NOSE: Clear with pink turbinates. THROAT: No erythema or exudates. NECK: No masses, no JVD, no thyroid enlargement, no adenopathy. CHEST: No chest wall deformity. Symmetrical expansion. LUNGS: Equal air entry with bilateral crackles, but no wheeze, rhonchi or dullness. CVS: Regular rate and rhythm, normal S1 and S2, no gallops, no murmurs, no rubs ABDOMEN: Soft, nontender. No hepatosplenomegaly, normal bowel sounds, no guarding or rigidity. EXTREMITIES: No clubbing, no edema, no cyanosis, 2+ pulses and upper and lower extremities. MUSCULOSKELETAL: Muscle strength and tone normal. SPINE: No scoliosis or deformity SKIN: No rashes CENTRAL NERVOUS SYSTEM: Alert and oriented -3. No focal deficits, tone is normal in all 4 extremities. PSYCHIATRIC: Alert and oriented -3. Appropriate affect. Intact judgment and insight. - Labs CBC & Chem 7: 10/13/20 05:55 10/13/20 05:55 Labs: Abnormal Lab Results - Last 24 Hours (Table) 10/12/20 10/12/20 10/12/20 Range/Units 12:09 16:10 20:46 Lymphocytes # (1.0-4.8) k/uL Anion Gap (4.00-12.00) mmol/L BUN (9.0-27.0) mg/dL Est GFR (CKD-EPI)NonAf (60.0-200.0) BUN/Creatinine Ratio (12.00-20.00) Ratio POC Glucose (mg/dL) 373 H 265 H (75-99) mg/dL C-Reactive Protein 3.1 H (0.0-0.8) mg/dL 10/13/20 10/13/20 10/13/20 Range/Units 05:55 05:55 11:30 Lymphocytes # 0.9 L (1.0-4.8) k/uL Anion Gap 13.80 H (4.00-12.00) mmol/L BUN 51.0 H (9.0-27.0) mg/dL Est GFR (CKD-EPI)NonAf 56.9 L (60.0-200.0) BUN/Creatinine Ratio 46.36 H (12.00-20.00) Ratio POC Glucose (mg/dL) 211 H (75-99) mg/dL C-Reactive Protein (0.0-0.8) mg/dL Assessment and Plan Assessment: 1. Acute COVID 19 pneumonitis, patient has not requiring supplemental oxygen, she is being treated with a combination of oral steroids, vitamins 2. Cough, shortness of breath related to the above 3. Type 2 diabetes mellitus 4. History of hypertension 5. Dyslipidemia 6. Never smoker Plan: The patient was seen and evaluated by Dr. Ren She is currently stable from the pulmonary standpoint, on room air Continue Remdesivir, Lovenox, dexamethasone Continue vitamin supplements, Pepcid, melatonin Increase her activity as tolerated We will continue to follow and make further recommendations based on her clini brie status I, the cosigning physician, performed a history & physical examination of the patient. Lungs sounds with bibasilar crackles. Maintaining good O2 saturations in the 90s on room air. I discussed the assessment and plan of care with my nurse practitioner, Lacie Lama. I attest to the above note as dictated by her.
[2020-10-13 16:49] LABS: Glucose,Whole Blood 299 mg/dL (75-99)
[2020-10-13] MEDS: REMDESIVIR 100 MG in SODIUM CHLORIDE 0.9% 250 ML IVPB SCH (17:07)
--- NOTE | 2020-10-13 18:45 | PN ---
PROGRESS NOTE DATE OF SERVICE: 10/13/2020 This 54-year-old woman was admitted with acute COVID-19 infection with bilateral interstitial pneumonia. Has taken a turn for the worse yesterday. The patient started on Remdesivir. The patient is feeling slightly better today. The patient has bilateral pneumonia as mentioned earlier. The patient is relatively hypoxic as well. The patient is on p.o. steroids. The patient is 89% on room air. PAST MEDICAL HISTORY: Reviewed. REVIEW OF SYSTEMS: CARDIOVASCULAR: As mentioned earlier. RESPIRATORY: As mentioned earlier. GI: As mentioned earlier. : No dysuria NERVOUS SYSTEM: No numbness or weakness. MEDICATIONS: Reviewed include Tylenol, Ventolin, Lipitor, Rocephin, Decadron, Lovenox, Pepcid, folic acid, Remdesivir. Doses reviewed. PHYSICAL EXAMINATION: Alert and oriented x3. Pulse 73, blood pressure 112/70, respirations 16, temperature 97.2, pulse ox 89% on room air. HEENT: Conjunctivae normal. Oral mucosa moist. NECK: No jugular venous distention. No lymph node enlargement. CARDIOVASCULAR: S1, S2, muffled. No S3, no S4, RESPIRATORY: Diminished breath sounds at the bases. Bilateral scattered rhonchi and crackles. ABDOMEN: Soft, nontender. LEGS: No edema, no swelling. NERVOUS SYSTEM: No focal deficit. LABS: Accu-Cheks 211, 93. ASSESSMENT: 1. Acute COVID-19 infection with bilateral interstitial pneumonia with possible sepsis and acute hypoxic respiratory failure with possible pneumonia, present on admission. 2. Elevated procalcitonin. 3. Acute renal failure, acute tubular necrosis, prerenal factors present on admission. 4. Hyponatremia. 5. Diabetes mellitus type 2. 6. Increased AST ALT, hepatitis associated with COVID-19. 7. Increased ALT, CRP, elevated inflammatory markers of COVID-19. 8. Hypertension history. 9. History of palpitation, tachycardia. 10.Obesity with body mass of 32.7. 11.FULL CODE. RECOMMENDATIONS AND DISCUSSION: Recommend to continue current management, continue symptomatic treatment. Otherwise, at this time I would recommend continue with current medications, continue Remdesivir, continue the rest of medication, continue steroids, continue the empiric antibiotics. Closely follow with multiple consultants. Guarded prognosis. Further recommendations to follow. The patient's D-dimer was normal twice. MMODL / IJN: [id number] /
[2020-10-13 20:28] LABS: Glucose,Whole Blood 342 mg/dL (75-99)
[2020-10-13] MEDS: ATORVASTATIN 40 MG TAB PO SCH (20:46)
[2020-10-13] MEDS: MELATONIN 3 MG TABLET PO SCH (20:46)
--- NOTE | 2020-10-13 22:38 | PN ---
PROGRESS NOTE DATE OF SERVICE: 10/13/2020 REASON FOR FOLLOWUP: COVID-19 pneumonia. INTERVAL HISTORY: Patient is currently afebrile. The patient has been complaining of feeling weak and run down. No chest pain though. However, cough increased in intensity. Denies any nausea, no vomiting. No abdominal pain or diarrhea. PHYSICAL EXAMINATION: Blood pressure 116/83 with a pulse of 66, temperature 98. She is 93% on 3 L nasal cannula. General description is a middle-aged female up in the chair in no distress. Respiratory system: Unlabored breathing, decreased intense breath sounds. No wheeze. HEART: S1, S2. Regular rate. ABDOMEN: Soft. No tenderness. LABS: Hemoglobin is 10.4, white count 8.0. Creatinine is 1.1. IMPRESSION/PLAN: Patient with acute COVID-19 pneumonia seemed to have some clinical response. Currently on Remdesivir, dexamethasone, Lovenox to continue. Clinical suspicion of underlying bacterial pneumonia. Rocephin to be discontinued. MMODL / IJN: [id number] /
[2020-10-14 02:33] LABS: African American GFR (CKD) 59.3 (60.0-200.0); Albumin 4.7 g/dL (3.80-4.90); Albumin/Globulin Ratio 1.96 (1.60-3.17); Anion Gap 17.2 mmol/L (4.00-12.00); BUN/Creat Ratio 45.83 Ratio (12.00-20.00); Calcium 9.4 mg/dL (8.7-10.3); Carbon Dioxide 21.8 mmol/L (21.6-31.8); Globulin 2.4 g/dL (1.6-3.3); Non-African American GFR(CKD) 51.2 (60.0-200.0); Potassium 4.4 mmol/L (3.5-5.5); Total Bilirubin 0.4 mg/dL (0.2-1.2); Total Protein 7.1 g/dL (6.2-8.2)
[2020-10-14 07:01] LABS: Glucose,Whole Blood 126 mg/dL (75-99)
[2020-10-14] MEDS: INSULIN ASPART (NovoLOG) 100 UNIT/ML VIAL SQ SCH ×4 (07:10→23:16)
[2020-10-14] MEDS: FOLIC ACID 1 MG TAB PO SCH (07:59)
[2020-10-14] MEDS: FAMOTIDINE 20 MG TAB PO SCH (07:59)
[2020-10-14] MEDS: ZINC SULFATE 220 MG CAP PO SCH (07:59)
[2020-10-14] MEDS: MULTIVITAMINS, THERA 1 EACH TAB PO SCH (07:59)
[2020-10-14] MEDS: ASCORBIC ACID 500 MG TAB PO SCH (07:59)
[2020-10-14] MEDS: ENOXAPARIN 40 MG/0.4 ML SYRINGE SQ SCH (07:59)
[2020-10-14] MEDS: metFORMIN 500 MG TAB PO SCH ×2 (07:59→23:14)
[2020-10-14] MEDS: LOSARTAN 50 MG TAB PO SCH ×2 (08:00→23:16)
[2020-10-14] MEDS: THIAMINE 100 MG TAB PO SCH (08:00)
[2020-10-14] MEDS: DEXAMETHASONE SOD PHOSPHATE 10 MG/ML 1 ML VIAL IV SCH (08:00)
[2020-10-14] MEDS: CHOLECALCIFEROL 400 UNIT TAB PO SCH (08:00)
[2020-10-14] MEDS: TRIAMTERENE-HCTZ 37.5-25MG 1 EACH CAP PO SCH (08:10)
[2020-10-14] MEDS: ALBUTEROL HFA INHALER INHALATION SCH ×4 (09:09→19:59)
[2020-10-14 11:49] LABS: Glucose,Whole Blood 264 mg/dL (75-99)
--- NOTE | 2020-10-14 15:20 | P.PN ---
Subjective Progress Note Date: 10/14/20 Principal diagnosis: CoVID 19 pneumonitis This is a 54-year-old female with history of hypertension, type 2 diabetes, dyslipidemia, patient was seen in the ER today with 5 days history of cough, cough is described as productive with whitish phlegm, and persistent. Patient also had some fever, chills, but she had no loss of sensation of taste or smell. Patient had no GI symptoms, no nausea no vomiting no diarrhea. She did feel generally fatigued, and she had generalized aches and pains. Chest x-ray on this evaluation in the ER showed bibasilar subsegmental atelectasis/infiltrates. CT of the chest showed patchy subpleural infiltrates and ground glass appearance in the lower lungs. Consistent with Covid 19 pneumonia. Patient did not require to be on oxygen, her O2 saturation was in the 90s on room air, she was placed on the Covid 19 cocktail, and we were asked to see her on consultation. On 10/11/2020 patient seen in follow-up in medical, she is doing better, cough is improving, she is currently on room air, her pulse is 92%, clinically remains stable, still low-grade fever this morning, with a temp of 99.5F, hemodynamically she has been stable, no complaint of chest discomfort. She continues on oral Decadron, prophylactic dose of Lovenox, no labs, no chest x- rays today. Overall feeling better today. On 10/12/2020 patient seen in follow-up on medical surgical floor, she is currently on room air pulse ox of 92%, denies any worsening dyspnea, does have a low-grade fever this morning with a temp of 99.8F, she is having to the bathroom and within the room, tolerating activity fairly well, her main complaint is persistent coughing, and last night patient had a significant coughing jag. Today's chest x-ray shows mild bibasilar infiltrates greater on the left base. Labs reviewed, showing d-dimer 0.30, leukocyte count of 0.9, the rest of the CBC was within normal limits, sodium 136, potassium 4.0, chloride is 97, BUN 51 and creatinine is 1.06. Patient remains on oral Decadron, empiric Rocephin, and prophylactic Lovenox. The patient is seen today 10/13/2020 follow-up on the regular medical floor. She is currently sitting up in a chair at the bedside. Awake and alert in no acute distress. Coughing a little S today. She was started on Remdesivir yesterday by infectious disease. This is day #2. Her main complaint is that of continued weakness. Maintaining O2 saturations in the 90s on room air. She's afebrile. White count 8.0. Hemoglobin 12.4. Lymphocytes 0.9. Sodium 139. Potassium 4.2. Creatinine 1.1. She remains on dexamethasone, Lovenox, Pepcid, melatonin, vitamin supplements. Antibiotics in the form of ceftriaxone. The patient is seen today 10/14/2020 in follow-up on the regular medical floor. She is currently sitting up at the bedside. Awake and alert in no acute distress. She does have ongoing harsh dry nonproductive cough. She is maintaining O2 saturations in the 90s on 4 L/m per nasal cannula and she remains on bronchodilators, dexamethasone, Lovenox, vitamin supplements. She is on day #3 of Remdesivir. D-dimer 0.28. Blood glucose 264. Objective - Vital Signs Vital signs: Vital Signs Temp 97.8 F 10/14/20 14:52 Pulse 80 10/14/20 14:52 Resp 17 10/14/20 14:52 BP 105/68 10/14/20 14:52 Pulse Ox 97 10/14/20 14:52 Intake & Output 10/13/20 10/14/20 10/14/20 18:59 06:59 18:59 Intake Total 540 Balance 540 Intake: Oral 540 Other: Voiding Method Toilet Toilet Toilet # Voids 2 - Exam GENERAL EXAM: Alert, very pleasant, 54-year-old female patient, on 4 liters per minute per nasal cannula, with pulse ox of 95%, comfortable in no apparent distress. HEAD: Normocephalic/atraumatic. EYES: Normal reaction of pupils, equal size. Conjunctiva pink, sclera white. NOSE: Clear with pink turbinates. THROAT: No erythema or exudates. NECK: No masses, no JVD, no thyroid enlargement, no adenopathy. CHEST: No chest wall deformity. Symmetrical expansion. LUNGS: Equal air entry with bilateral crackles, but no wheeze, rhonchi or dullness. CVS: Regular rate and rhythm, normal S1 and S2, no gallops, no murmurs, no rubs ABDOMEN: Soft, nontender. No hepatosplenomegaly, normal bowel sounds, no guarding or rigidity. EXTREMITIES: No clubbing, no edema, no cyanosis, 2+ pulses and upper and lower extremities. MUSCULOSKELETAL: Muscle strength and tone normal. SPINE: No scoliosis or deformity SKIN: No rashes CENTRAL NERVOUS SYSTEM: No focal deficits, tone is normal in all 4 extremities. PSYCHIATRIC: Alert and oriented -3. Appropriate affect. Intact judgment and insight. - Labs CBC & Chem 7: 10/13/20 05:55 10/13/20 17:43 Labs: Abnormal Lab Results - Last 24 Hours (Table) 10/13/20 10/13/20 10/13/20 Range/Units 16:46 17:43 20:26 Anion Gap 17.20 H (4.00-12.00) mmol/L BUN 55.0 H (9.0-27.0) mg/dL Est GFR (CKD-EPI)AfAm 59.3 L (60.0-200.0) Est GFR (CKD-EPI)NonAf 51.2 L (60.0-200.0) BUN/Creatinine Ratio 45.83 H (12.00-20.00) Ratio Glucose 295 H (70-110) mg/dL POC Glucose (mg/dL) 299 H 342 H (75-99) mg/dL 10/14/20 10/14/20 Range/Units 07:00 11:48 Anion Gap (4.00-12.00) mmol/L BUN (9.0-27.0) mg/dL Est GFR (CKD-EPI)AfAm (60.0-200.0) Est GFR (CKD-EPI)NonAf (60.0-200.0) BUN/Creatinine Ratio (12.00-20.00) Ratio Glucose (70-110) mg/dL POC Glucose (mg/dL) 126 H 264 H (75-99) mg/dL Assessment and Plan Assessment: 1 Acute COVID 19 pneumonitis, current and 4 L/m per nasal cannula, day #3 of Remdesivir 2 Cough, shortness of breath related to the above 3 Type 2 diabetes mellitus 4 History of hypertension 5 Dyslipidemia 6 Never smoker Plan: The patient was seen and evaluated by Dr. Gela Continue Remdesivir, Lovenox, dexamethasone Continue vitamin supplements, Pepcid, melatonin Increase her activity as tolerated Titrate down her FiO2 as tolerated Follow-up chest x-ray in a.m. We will continue to follow and make further recommendations based on her clinical status I, the cosigning physician, performed a history & physical examination of the patient. Lungs sounds with bibasilar crackles. Maintaining good O2 saturations in the 90s on 4 L/m per nasal cannula. I discussed the assessment and plan of care with my nurse practitioner, Lacie Lama. I attest to the above note as dictated by her.
[2020-10-14] MEDS: REMDESIVIR 100 MG in SODIUM CHLORIDE 0.9% 250 ML IVPB SCH (16:25)
--- NOTE | 2020-10-14 16:28 | P.PN ---
Subjective Progress Note Date: 10/14/20 Principal diagnosis: CoVID 19 pneumonia Mr. Bowens is a 54-year-old female with a past medical history of hypertension, type 2 diabetes mellitus, hyperlipidemia admitted to the ER with a chief complaint of cough with productive sputum along with fever chills. Patient's symptoms are consistent with COVID-19 pneumonia. On 10/14/2020 - patient was seen and examined on general medical floors. Patient states her breathing is much better compared to yesterday. She still has ongoing dry cough that is nonproductive. Patient denies having any chest pain or palpitations. No abdominal pain nausea vomiting or diarrhea. No swelling of lower extremities. No dysuria or hematuria. On reviewing the vitals temperature 97.8, heart rate 80, respiratory rate 17, blood pressure 10 5 x 68 saturating at 97% on 3-4 L of nasal cannula. No new labs from this morning. Active Medications Acetaminophen (Acetaminophen Tab 325 Mg Tab) 650 mg PO Q6HR PRN PRN Reason: Mild Pain or Fever > 100.5 Albuterol Sulfate (Albuterol Hfa Inhaler) 2 puff INHALATION RT-QID [facility] Last Admin: 10/14/20 16:12 Dose: Not Given Documented by: Ascorbic Acid (Ascorbic Acid 500 Mg Tab) 1,000 mg PO DAILY [facility] Last Admin: 10/14/20 07:59 Dose: 1,000 mg Documented by: Atorvastatin Calcium (Atorvastatin 40 Mg Tab) 40 mg PO HS [facility] Last Admin: 10/13/20 20:46 Dose: 40 mg Documented by: Cholecalciferol (Cholecalciferol 400 Unit Tab) 400 unit PO DAILY [facility] Last Admin: 10/14/20 08:00 Dose: 400 unit Documented by: Dexamethasone Sodium Phosphate (Dexamethasone Sod Phosphate 10 Mg/Ml 1 Ml Vial) 6 mg IV DAILY [facility] Last Admin: 10/14/20 08:00 Dose: 6 mg Documented by: Enoxaparin Sodium (Enoxaparin 40 Mg/0.4 Ml Syringe) 40 mg SQ DAILY [facility] Last Admin: 10/14/20 07:59 Dose: 40 mg Documented by: Ergocalciferol (Ergocalciferol 50,000 Unit Cap) 50,000 unit PO [facility] Famotidine (Famotidine 20 Mg Tab) 20 mg PO DAILY [facility] Last Admin: 10/14/20 07:59 Dose: 20 mg Documented by: Folic Acid (Folic Acid 1 Mg Tab) 1 mg PO DAILY@1200 [facility] Last Admin: 10/14/20 07:59 Dose: 1 mg Documented by: Guaifenesin/Codeine Phosphate (Guaifenesin-Coden 100-10mg/5ml 10 Ml Cup) 10 ml PO Q6H PRN PRN Reason: Cough Remdesivir 100 mg/ Sodium (Chloride) 250 mls @ 250 mls/hr IVPB DAILY@1700 [facility] Stop: 10/16/20 17:59 Last Admin: 10/13/20 17:07 Dose: 250 mls/hr Documented by: Insulin Aspart (Insulin Aspart (Novolog) 100 Unit/Ml Vial) 0 unit SQ ACHS [facility]; Protocol Last Admin: 10/14/20 12:37 Dose: 4 unit Documented by: Losartan Potassium (Losartan 50 Mg Tab) 50 mg PO BID [facility] Last Admin: 10/14/20 08:00 Dose: 50 mg Documented by: Melatonin (Melatonin 3 Mg Tablet) 3 mg PO HS [facility] Last Admin: 10/13/20 20:46 Dose: 3 mg Documented by: Metformin HCl (Metformin 500 Mg Tab) 250 mg PO BID [facility] Last Admin: 10/14/20 07:59 Dose: 250 mg Documented by: Multivitamins (Multivitamins, Thera 1 Each Tab) 1 each PO DAILY@1200 [facility] Last Admin: 10/14/20 07:59 Dose: 1 each Documented by: Naloxone HCl (Naloxone 0.4 Mg/Ml 1 Ml Vial) 0.2 mg IV Q2M PRN PRN Reason: Opioid Reversal Dulaglutide [ Trulicity] 1.5 Mg/0. 5 Ml Pen.Injctr 1.5 mg SQ Tu@0900 [facility] Last Admin: 10/11/20 11:54 Dose: 1.5 mg Documented by: Thiamine HCl (Thiamine 100 Mg Tab) 100 mg PO DAILY@1200 [facility] Last Admin: 10/14/20 08:00 Dose: 100 mg Documented by: Triamterene/HCTZ (Triamterene-Hctz 37.5-25mg 1 Each Cap) 1 each PO DAILY [facility] Last Admin: 10/14/20 08:10 Dose: 1 each Documented by: Zinc Sulfate (Zinc Sulfate 220 Mg Cap) 220 mg PO DAILY [facility] Last Admin: 10/14/20 07:59 Dose: 220 mg Documented by: Objective - Vital Signs Vital signs: Vital Signs Temp 97.8 F 10/14/20 14:52 Pulse 80 10/14/20 14:52 Resp 17 10/14/20 14:52 BP 105/68 10/14/20 14:52 Pulse Ox 97 10/14/20 14:52 Intake & Output 10/13/20 10/14/20 10/14/20 18:59 06:59 18:59 Intake Total 540 Balance 540 Intake: Oral 540 Other: Voiding Method Toilet Toilet Toilet # Voids 2 - Exam GENERAL EXAM: comfortable in no apparent distress. HENT: No pallor no icterus CHEST: No chest wall deformity. Symmetrical expansion. LUNGS: Equal air entry with bilateral crackles, but no wheeze, rhonchi or dullness. CVS: Regular rate and rhythm, normal S1 and S2, no gallops, no murmurs, no rubs ABDOMEN: Soft, nontender. No hepatosplenomegaly, normal bowel sounds, no guarding or rigidity. EXTREMITIES: No clubbing, no edema, no cyanosis, 2+ pulses and upper and lower extremities. CENTRAL NERVOUS SYSTEM: No focal deficits - Labs CBC & Chem 7: 10/13/20 05:55 10/13/20 17:43 Labs: Abnormal Lab Results - Last 24 Hours (Table) 10/13/20 10/13/20 10/13/20 Range/Units 16:46 17:43 20:26 Anion Gap 17.20 H (4.00-12.00) mmol/L BUN 55.0 H (9.0-27.0) mg/dL Est GFR (CKD-EPI)AfAm 59.3 L (60.0-200.0) Est GFR (CKD-EPI)NonAf 51.2 L (60.0-200.0) BUN/Creatinine Ratio 45.83 H (12.00-20.00) Ratio Glucose 295 H (70-110) mg/dL POC Glucose (mg/dL) 299 H 342 H (75-99) mg/dL 10/14/20 10/14/20 Range/Units 07:00 11:48 Anion Gap (4.00-12.00) mmol/L BUN (9.0-27.0) mg/dL Est GFR (CKD-EPI)AfAm (60.0-200.0) Est GFR (CKD-EPI)NonAf (60.0-200.0) BUN/Creatinine Ratio (12.00-20.00) Ratio Glucose (70-110) mg/dL POC Glucose (mg/dL) 126 H 264 H (75-99) mg/dL Assessment and Plan Assessment: ASSESSMENT Acute COVID 19 pneumonitis Cough, shortness of breath related to the above Type 2 diabetes mellitus History of hypertension Dyslipidemia PLAN: Patient is currently on Remdesivir, dexamethasone, Lovenox, multivitamin supplements. Patient is encouraged to do incentive spirometry and prone ventilation. Activity as tolerated. Continue the current medication regimen. Further recommendations depending on the progress of the patient.
[2020-10-14 16:43] LABS: Glucose,Whole Blood 374 mg/dL (75-99)
--- NOTE | 2020-10-14 17:19 | PN ---
PROGRESS NOTE DATE OF SERVICE: 10/14/2020 REASON FOR FOLLOWUP: Acute COVID-19 pneumonia. INTERVAL HISTORY: The patient is currently afebrile. The patient is feeling better. The patient is breathing more comfortably. Denies having any chest pain. Cough has decreased in intensity and remains dry in nature. No nausea, no vomiting. No abdominal pain or diarrhea. PHYSICAL EXAMINATION: Blood pressure 105/68 with a pulse of 80, temperature 97.8. She is 97% on 3.5 L nasal cannula. General description is a middle-aged female up in the chair in no distress. RESPIRATORY SYSTEM: Unlabored breathing with decreased intensity of breath sounds. No wheeze. HEART: S1, S2. Regular rate and rhythm. ABDOMEN: Soft. No tenderness. LABS: D-dimer 0.28. DIAGNOSTIC IMPRESSION AND PLAN: Patient with acute COVID-19 pneumonia in this patient who seems to have shown overall clinical improvement. She is currently on remdesivir in addition to dexamethasone, Lovenox, zinc and ascorbic acid; to continue along with respiratory support. Monitor clinical course closely. MMODL / IJN: [id number] /
[2020-10-14 20:27] LABS: Glucose,Whole Blood 378 mg/dL (75-99)
[2020-10-14 23:11] LABS: Glucose,Whole Blood 284 mg/dL (75-99)
[2020-10-14] MEDS: MELATONIN 3 MG TABLET PO SCH (23:14)
[2020-10-14] MEDS: ATORVASTATIN 40 MG TAB PO SCH (23:16)
[2020-10-15 06:21] LABS: Basophils # (A) 0.1 k/uL (0-0.2); Basophils % (A) 1 %; Eosinophils % (A) 0 %; HCT 37.2 % (34.0-46.0); HGB 12.8 gm/dL (11.4-16.0); Lymphocytes # (A) 1.4 k/uL (1.0-4.8); Lymphocytes % (A) 22 %; MCH 29.3 pg (25.0-35.0); MCHC 34.4 g/dL (31.0-37.0); Mean Platelet Volume 6.9; Monocytes # (A) 0.6 k/uL (0-1.0); Monocytes % (A) 10 %; Neutrophils % (A) 64 %; Platelet Count 495 k/uL (150-450); RBC 4.37 m/uL (3.80-5.40); RDW 13.4 % (11.5-15.5); WBC 6.3 k/uL (3.8-10.6)
--- NOTE | 2020-10-15 07:28 | XR ---
EXAMINATION TYPE: XR chest 1V portable DATE OF EXAM: 10/15/2020 COMPARISON: : 721 HISTORY: Shortness of breath TECHNIQUE: Single frontal view of the chest is obtained. FINDINGS: Bilateral consolidation. Limited inspiration. The heart is prominent and there is no pneum othorax. Tiny bilateral pleural effusions not excluded. IMPRESSION: Cardiomegaly with bilateral lower lobe infiltrate is stable.
[2020-10-15 07:30] LABS: Glucose,Whole Blood 201 mg/dL (75-99)
[2020-10-15] MEDS: ALBUTEROL HFA INHALER INHALATION SCH ×4 (07:52→19:06)
[2020-10-15] MEDS: INSULIN ASPART (NovoLOG) 100 UNIT/ML VIAL SQ SCH ×4 (08:19→20:54)
[2020-10-15] MEDS: FOLIC ACID 1 MG TAB PO SCH (08:20)
[2020-10-15] MEDS: ZINC SULFATE 220 MG CAP PO SCH (08:20)
[2020-10-15] MEDS: DEXAMETHASONE SOD PHOSPHATE 10 MG/ML 1 ML VIAL IV SCH (08:20)
[2020-10-15] MEDS: LOSARTAN 50 MG TAB PO SCH ×2 (08:20→20:55)
[2020-10-15] MEDS: metFORMIN 500 MG TAB PO SCH ×2 (08:20→20:55)
[2020-10-15] MEDS: THIAMINE 100 MG TAB PO SCH (08:20)
[2020-10-15] MEDS: ASCORBIC ACID 500 MG TAB PO SCH (08:20)
[2020-10-15] MEDS: MULTIVITAMINS, THERA 1 EACH TAB PO SCH (08:20)
[2020-10-15] MEDS: FAMOTIDINE 20 MG TAB PO SCH (08:20)
[2020-10-15] MEDS: CHOLECALCIFEROL 400 UNIT TAB PO SCH (08:21)
[2020-10-15] MEDS: TRIAMTERENE-HCTZ 37.5-25MG 1 EACH CAP PO SCH (08:21)
[2020-10-15] MEDS: ENOXAPARIN 40 MG/0.4 ML SYRINGE SQ SCH (08:21)
[2020-10-15 11:17] LABS: Anion Gap 11.5 mmol/L (4.00-12.00); BUN/Creat Ratio 51.11 Ratio (12.00-20.00); C Reactive Protein 2.9 mg/dL (0.0-0.8); Calcium 10.1 mg/dL (8.7-10.3); Carbon Dioxide 25.5 mmol/L (21.6-31.8); Ferritin 436.2 ng/mL (10.0-291.0); Non-African American GFR(CKD) 72.5 (60.0-200.0); Potassium 4.1 mmol/L (3.5-5.5)
[2020-10-15 11:43] LABS: Glucose,Whole Blood 238 mg/dL (75-99)
[2020-10-15 16:50] LABS: Glucose,Whole Blood 365 mg/dL (75-99)
[2020-10-15] MEDS: REMDESIVIR 100 MG in SODIUM CHLORIDE 0.9% 250 ML IVPB SCH (17:02)
--- NOTE | 2020-10-15 18:42 | P.PN ---
Subjective Progress Note Date: 10/15/20 Principal diagnosis: CoVID 19 pneumonia Mr. Bowens is a 54-year-old female with a past medical history of hypertension, type 2 diabetes mellitus, hyperlipidemia admitted to the ER with a chief complaint of cough with productive sputum along with fever chills. Patient's symptoms are consistent with COVID-19 pneumonia. On 10/14/2020 - patient was seen and examined on general medical floors. Patient states her breathing is much better compared to yesterday. She still has ongoing dry cough that is nonproductive. Patient denies having any chest pain or palpitations. No abdominal pain nausea vomiting or diarrhea. No swelling of lower extremities. No dysuria or hematuria. On reviewing the vitals temperature 97.8, heart rate 80, respiratory rate 17, blood pressure 10 5 x 68 saturating at 97% on 3-4 L of nasal cannula. No new labs from this morning. On 10/15/2020 - patient was seen and examined on the general medical floors. Patient is sitting up in a chair by the bedside appears to be in no acute distress. She states that she just had a shower having mild difficulty in breathing. Patient denies having any worsening of her cough. She denies having any chest pain or palpitations. No abdominal pain, nausea or vomiting. She denies having any swelling of her lower extremities. On reviewing the vitals temperature 97.8, heart rate 86, respiratory 20, blood pressure 11/01/2076 surgery date 92% on 3 L of nasal cannula. Labs this morning showing white count of 6.3, hemoglobin of 12.8, platelets 495. Sodium 140, ratio 4.1, chloride 103, bicarbonate 25. Bilirubin is 46 and creatinine of 0.9 ferritin of 436, LDH 197, CRP 2.9 and d-dimer is 0.29. Active Medications Acetaminophen (Acetaminophen Tab 325 Mg Tab) 650 mg PO Q6HR PRN PRN Reason: Mild Pain or Fever > 100.5 Albuterol Sulfate (Albuterol Hfa Inhaler) 2 puff INHALATION RT-QID [facility] Last Admin: 10/15/20 15:45 Dose: 2 puff Documented by: Ascorbic Acid (Ascorbic Acid 500 Mg Tab) 1,000 mg PO DAILY [facility] Last Admin: 10/15/20 08:20 Dose: 1,000 mg Documented by: Atorvastatin Calcium (Atorvastatin 40 Mg Tab) 40 mg PO HS [facility] Last Admin: 10/14/20 23:16 Dose: 40 mg Documented by: Cholecalciferol (Cholecalciferol 400 Unit Tab) 400 unit PO DAILY [facility] Last Admin: 10/15/20 08:21 Dose: 400 unit Documented by: Dexamethasone Sodium Phosphate (Dexamethasone Sod Phosphate 10 Mg/Ml 1 Ml Vial) 6 mg IV DAILY [facility] Last Admin: 10/15/20 08:20 Dose: 6 mg Documented by: Enoxaparin Sodium (Enoxaparin 40 Mg/0.4 Ml Syringe) 40 mg SQ DAILY [facility] Last Admin: 10/15/20 08:21 Dose: 40 mg Documented by: Ergocalciferol (Ergocalciferol 50,000 Unit Cap) 50,000 unit PO [facility] Famotidine (Famotidine 20 Mg Tab) 20 mg PO DAILY [facility] Last Admin: 10/15/20 08:20 Dose: 20 mg Documented by: Folic Acid (Folic Acid 1 Mg Tab) 1 mg PO DAILY@1200 [facility] Last Admin: 10/15/20 08:20 Dose: 1 mg Documented by: Guaifenesin/Codeine Phosphate (Guaifenesin-Coden 100-10mg/5ml 10 Ml Cup) 10 ml PO Q6H PRN PRN Reason: Cough Remdesivir 100 mg/ Sodium (Chloride) 250 mls @ 250 mls/hr IVPB DAILY@1700 [facility] Stop: 10/16/20 17:59 Last Admin: 10/15/20 17:02 Dose: 250 mls/hr Documented by: Insulin Aspart (Insulin Aspart (Novolog) 100 Unit/Ml Vial) 0 unit SQ ACHS [facility]; Protocol Last Admin: 10/15/20 17:02 Dose: 7 unit Documented by: Losartan Potassium (Losartan 50 Mg Tab) 50 mg PO BID [facility] Last Admin: 10/15/20 08:20 Dose: 50 mg Documented by: Melatonin (Melatonin 3 Mg Tablet) [address] [facility] Last Admin: 10/14/20 23:14 Dose: 3 mg Documented by: Metformin HCl (Metformin 500 Mg Tab) 250 mg PO BID [facility] Last Admin: 10/15/20 08:20 Dose: 250 mg Documented by: Multivitamins (Multivitamins, Thera 1 Each Tab) 1 each PO DAILY@1200 [facility] Last Admin: 10/15/20 08:20 Dose: 1 each Documented by: Naloxone HCl (Naloxone 0.4 Mg/Ml 1 Ml Vial) 0.2 mg IV Q2M PRN PRN Reason: Opioid Reversal Dulaglutide [ Trulicity] 1.5 Mg/0. 5 Ml Pen.Injctr 1.5 mg SQ Tu@0900 [facility] Last Admin: 10/11/20 11:54 Dose: 1.5 mg Documented by: Thiamine HCl (Thiamine 100 Mg Tab) 100 mg PO DAILY@1200 [facility] Last Admin: 10/15/20 08:20 Dose: 100 mg Documented by: Triamterene/HCTZ (Triamterene-Hctz 37.5-25mg 1 Each Cap) 1 each PO DAILY [facility] Last Admin: 10/15/20 08:21 Dose: 1 each Documented by: Zinc Sulfate (Zinc Sulfate 220 Mg Cap) 220 mg PO DAILY [facility] Last Admin: 10/15/20 08:20 Dose: 220 mg Documented by: Objective - Vital Signs Vital signs: Vital Signs Temp 97.8 F 10/15/20 14:00 Pulse 71 10/15/20 14:00 Resp 20 10/15/20 14:00 BP 118/70 10/15/20 14:00 Pulse Ox 98 10/15/20 14:00 Intake & Output 10/14/20 10/15/20 10/15/20 18:59 06:59 18:59 Other: Voiding Method Toilet Toilet Toilet # Voids 2 1 2 - Exam PHYSICAL EXAM GENERAL EXAM: comfortable in no apparent distress. HENT: No pallor no icterus CHEST: No chest wall deformity. Symmetrical expansion. LUNGS: Equal air entry with bilateral crackles, but no wheeze, rhonchi or dullness. CVS: Regular rate and rhythm, normal S1 and S2, no gallops, no murmurs, no rubs ABDOMEN: Soft, nontender. No hepatosplenomegaly, normal bowel sounds, no guarding or rigidity. EXTREMITIES: No clubbing, no edema, no cyanosis, 2+ pulses and upper and lower extremities. CENTRAL NERVOUS SYSTEM: No focal deficits - Labs CBC & Chem 7: 10/15/20 05:48 10/15/20 05:48 Labs: Abnormal Lab Results - Last 24 Hours (Table) 10/14/20 10/14/20 10/15/20 Range/Units 20:25 23:08 05:48 Plt Count 495 H (150-450) k/uL BUN (9.0-27.0) mg/dL BUN/Creatinine Ratio (12.00-20.00) Ratio Glucose (70-110) mg/dL POC Glucose (mg/dL) 378 H 284 H (75-99) mg/dL Ferritin (10.0-291.0) ng/mL C-Reactive Protein (0.0-0.8) mg/dL 10/15/20 10/15/20 10/15/20 Range/Units 05:48 07:27 11:41 Plt Count (150-450) k/uL BUN 46.0 H (9.0-27.0) mg/dL BUN/Creatinine Ratio 51.11 H (12.00-20.00) Ratio Glucose 123 H (70-110) mg/dL POC Glucose (mg/dL) 201 H 238 H (75-99) mg/dL Ferritin 436.2 H (10.0-291.0) ng/mL C-Reactive Protein 2.9 H (0.0-0.8) mg/dL 10/15/20 Range/Units 16:48 Plt Count (150-450) k/uL BUN (9.0-27.0) mg/dL BUN/Creatinine Ratio (12.00-20.00) Ratio Glucose (70-110) mg/dL POC Glucose (mg/dL) 365 H (75-99) mg/dL Ferritin (10.0-291.0) ng/mL C-Reactive Protein (0.0-0.8) mg/dL Assessment and Plan Assessment: ASSESSMENT Acute COVID 19 pneumonitis Type 2 diabetes mellitus Hyperglycemia History of hypertension Dyslipidemia PLAN: Patient's blood sugars running slightly high, we will adjust her dose of insulin depending upon the glucose levels. Patient is currently on Remdesivir, dexamethasone, Lovenox, multivitamin supplements. Patient is encouraged to do incentive spirometry and prone ventilation. Activity as tolerated. Continue the current medication regimen. Further recommendations depending on the progress of the patient.
[2020-10-15 20:18] LABS: Glucose,Whole Blood 335 mg/dL (75-99)
--- NOTE | 2020-10-15 20:44 | PN ---
PROGRESS NOTE DATE OF SERVICE: 10/15/2020 REASON FOR FOLLOWUP: COVID-19 pneumonia. INTERVAL HISTORY: The patient is currently afebrile. The patient is feeling slightly better today. She is breathing more comfortably. She is able to take a deep breath. Denies having any chest pain. Cough has decreased in intensity. No vomiting. No abdominal pain or diarrhea. PHYSICAL EXAMINATION: Blood pressure 127/77 with a pulse of 86, temperature 97.8. She is 92% on 3 L nasal cannula. General description is a middle-aged female up in the chair in no distress. RESPIRATORY SYSTEM: Unlabored breathing with decreased intensity of breath sounds. No wheeze. HEART: S1, S2. Regular rate and rhythm. ABDOMEN: Soft. No tenderness. LABS: Hemoglobin is 12.8, white count 6.3. BUN of 46, creatinine 0.9. DIAGNOSTIC IMPRESSION AND PLAN: Patient with acute COVID-19 pneumonia in this patient who seems to have shown overall clinical improvement on current treatment protocol, including remdesivir, day 4, in addition to dexamethasone, Lovenox and zinc; to continue and monitor her clinical course closely. MMODL / IJN: [id number] /
[2020-10-15] MEDS: MELATONIN 3 MG TABLET PO SCH (20:55)
[2020-10-15] MEDS: ATORVASTATIN 40 MG TAB PO SCH (20:55)
[2020-10-16 07:24] LABS: Glucose,Whole Blood 143 mg/dL (75-99)
[2020-10-16] MEDS: ALBUTEROL HFA INHALER INHALATION SCH ×4 (07:40→20:41)
[2020-10-16] MEDS ORDERED: ERGOCALCIFEROL 50,000 UNIT CAP PO SCH (09:00)
[2020-10-16] MEDS: INSULIN ASPART (NovoLOG) 100 UNIT/ML VIAL SQ SCH ×4 (10:56→21:57)
[2020-10-16] MEDS: FOLIC ACID 1 MG TAB PO SCH (11:12)
[2020-10-16] MEDS: MULTIVITAMINS, THERA 1 EACH TAB PO SCH (11:12)
[2020-10-16] MEDS: DEXAMETHASONE SOD PHOSPHATE 10 MG/ML 1 ML VIAL IV SCH (11:12)
[2020-10-16] MEDS: THIAMINE 100 MG TAB PO SCH (11:12)
[2020-10-16] MEDS: TRIAMTERENE-HCTZ 37.5-25MG 1 EACH CAP PO SCH (11:12)
[2020-10-16] MEDS: ZINC SULFATE 220 MG CAP PO SCH (11:12)
[2020-10-16] MEDS: ASCORBIC ACID 500 MG TAB PO SCH (11:12)
[2020-10-16] MEDS: metFORMIN 500 MG TAB PO SCH ×2 (11:13→21:57)
[2020-10-16] MEDS: ENOXAPARIN 40 MG/0.4 ML SYRINGE SQ SCH (11:13)
[2020-10-16] MEDS: CHOLECALCIFEROL 400 UNIT TAB PO SCH (11:13)
[2020-10-16] MEDS: FAMOTIDINE 20 MG TAB PO SCH ×2 (11:13→21:57)
[2020-10-16] MEDS: LOSARTAN 50 MG TAB PO SCH ×2 (11:13→21:57)
[2020-10-16 11:46] LABS: Glucose,Whole Blood 169 mg/dL (75-99)
[2020-10-16 17:04] LABS: Glucose,Whole Blood 440 mg/dL (75-99)
[2020-10-16 17:08] LABS: Glucose,Whole Blood 422 mg/dL (75-99)
[2020-10-16] MEDS: REMDESIVIR 100 MG in SODIUM CHLORIDE 0.9% 250 ML IVPB SCH (17:53)
[2020-10-16 20:43] LABS: Glucose,Whole Blood 454 mg/dL (75-99)
[2020-10-16] MEDS ORDERED: INSULIN ASPART (NovoLOG) 100 UNIT/ML VIAL SQ ONE (20:51)
[2020-10-16] MEDS: ATORVASTATIN 40 MG TAB PO SCH (21:56)
[2020-10-16] MEDS: MELATONIN 3 MG TABLET PO SCH (21:57)
--- NOTE | 2020-10-16 22:10 | PN ---
PROGRESS NOTE DATE OF SERVICE: 10/16/2020 REASON FOR FOLLOWUP: COVID-19 pneumonia. INTERVAL HISTORY: The patient is currently afebrile. The patient is breathing more comfortably. The patient is currently on room air. Denies having any chest pain or shortness of breath. Occasional cough. No abdominal pain or diarrhea. PHYSICAL EXAMINATION: Blood pressure 126/74 with a pulse of 75, temperature of 98.1. She is 94% on room air. General description is a middle-aged female up in the chair in no distress. RESPIRATORY SYSTEM: Unlabored breathing with decreased intensity of breath sounds. No wheeze. HEART: S1, S2. Regular rate and rhythm. ABDOMEN: Soft. No tenderness. LABS: No new labs have been obtained today. DIAGNOSTIC IMPRESSION AND PLAN: Patient with acute COVID-19 pneumonia in this patient who has shown overall clinical improvement. The patient has been weaned off the oxygen. She has completed a 5- day course of remdesivir. short course of dexamethasone on discharge. Continue with supportive care. MMODL / IJN: [id number] / SAMAN
--- NOTE | 2020-10-16 22:46 | P.PN ---
Subjective Progress Note Date: 10/16/20 Principal diagnosis: CoVID 19 pneumonia Mr. Bowens is a 54-year-old female with a past medical history of hypertension, type 2 diabetes mellitus, hyperlipidemia admitted to the ER with a chief complaint of cough with productive sputum along with fever chills. Patient's symptoms are consistent with COVID-19 pneumonia. On 10/14/2020 - patient was seen and examined on general medical floors. Patient states her breathing is much better compared to yesterday. She still has ongoing dry cough that is nonproductive. Patient denies having any chest pain or palpitations. No abdominal pain nausea vomiting or diarrhea. No swelling of lower extremities. No dysuria or hematuria. On reviewing the vitals temperature 97.8, heart rate 80, respiratory rate 17, blood pressure 10 5 x 68 saturating at 97% on 3-4 L of nasal cannula. No new labs from this morning. On 10/15/2020 - patient was seen and examined on the general medical floors. Patient is sitting up in a chair by the bedside appears to be in no acute distress. She states that she just had a shower having mild difficulty in breathing. Patient denies having any worsening of her cough. She denies having any chest pain or palpitations. No abdominal pain, nausea or vomiting. She denies having any swelling of her lower extremities. On reviewing the vitals temperature 97.8, heart rate 86, respiratory 20, blood pressure 11/01/2076 surgery date 92% on 3 L of nasal cannula. Labs this morning showing white count of 6.3, hemoglobin of 12.8, platelets 495. Sodium 140, ratio 4.1, chloride 103, bicarbonate 25. Bilirubin is 46 and creatinine of 0.9 ferritin of 436, LDH 197, CRP 2.9 and d-dimer is 0.29. On 10/16/2020 -patient was seen and examined on the general medical floor. She is sitting up in a chair by the bedside. She states that she had some nosebleeds because of the oxygen and so has been off of oxygen. Her saturations have been around 90-94 on room air. On reviewing the vitals temperature is 98.2, heart rate 78, respiratory 16, blood pressure 115 x 66. Patient denies having any chest pain or palpitations. She states that has breathing is much better today she denies having any swelling of her feet. No abdominal pain nausea vomiting or diarrhea. Patient's blood sugars have been running high. Active Medications Acetaminophen (Acetaminophen Tab 325 Mg Tab) 650 mg PO Q6HR PRN PRN Reason: Mild Pain or Fever > 100.5 Albuterol Sulfate (Albuterol Hfa Inhaler) 2 puff INHALATION RT-QID [facility] Last Admin: 10/16/20 20:41 Dose: Not Given Documented by: Ascorbic Acid (Ascorbic Acid 500 Mg Tab) 1,000 mg PO DAILY [facility] Last Admin: 10/16/20 11:12 Dose: 1,000 mg Documented by: Atorvastatin Calcium (Atorvastatin 40 Mg Tab) 40 mg PO HS [facility] Last Admin: 10/16/20 21:56 Dose: 40 mg Documented by: Cholecalciferol (Cholecalciferol 400 Unit Tab) 400 unit PO DAILY [facility] Last Admin: 10/16/20 11:13 Dose: 400 unit Documented by: Dexamethasone Sodium Phosphate (Dexamethasone Sod Phosphate 10 Mg/Ml 1 Ml Vial) 6 mg IV DAILY [facility] Last Admin: 10/16/20 11:12 Dose: 6 mg Documented by: Enoxaparin Sodium (Enoxaparin 40 Mg/0.4 Ml Syringe) 40 mg SQ DAILY [facility] Last Admin: 10/16/20 11:13 Dose: 40 mg Documented by: Ergocalciferol (Ergocalciferol 50,000 Unit Cap) 50,000 unit PO MO [facility] Last Admin: 10/16/20 11:13 Dose: 50,000 unit Documented by: Famotidine (Famotidine 20 Mg Tab) 20 mg PO BID [facility] Last Admin: 10/16/20 21:57 Dose: 20 mg Documented by: Folic Acid (Folic Acid 1 Mg Tab) 1 mg PO DAILY@1200 [facility] Last Admin: 10/16/20 11:12 Dose: 1 mg Documented by: Guaifenesin/Codeine Phosphate (Guaifenesin-Coden 100-10mg/5ml 10 Ml Cup) 10 ml PO Q6H PRN PRN Reason: Cough Insulin Aspart (Insulin Aspart (Novolog) 100 Unit/Ml Vial) 0 unit SQ ACHS [facility]; Protocol Last Admin: 10/16/20 21:57 Dose: 8 unit Documented by: Losartan Potassium (Losartan 50 Mg Tab) 50 mg PO BID [facility] Last Admin: 10/16/20 21:57 Dose: 50 mg Documented by: Melatonin (Melatonin 3 Mg Tablet) 3 mg PO HS [facility] Last Admin: 10/16/20 21:57 Dose: 3 mg Documented by: Metformin HCl (Metformin 500 Mg Tab) 250 mg PO BID [facility] Last Admin: 10/16/20 21:57 Dose: 250 mg Documented by: Multivitamins (Multivitamins, Thera 1 Each Tab) 1 each PO DAILY@1200 [facility] Last Admin: 10/16/20 11:12 Dose: 1 each Documented by: Naloxone HCl (Naloxone 0.4 Mg/Ml 1 Ml Vial) 0.2 mg IV Q2M PRN PRN Reason: Opioid Reversal Dulaglutide [ Trulicity] 1.5 Mg/0. 5 Ml Pen.Injctr 1.5 mg SQ Tu@0900 [facility] Last Admin: 10/11/20 11:54 Dose: 1.5 mg Documented by: Thiamine HCl (Thiamine 100 Mg Tab) 100 mg PO DAILY@1200 [facility] Last Admin: 10/16/20 11:12 Dose: 100 mg Documented by: Triamterene/HCTZ (Triamterene-Hctz 37.5-25mg 1 Each Cap) 1 each PO DAILY [facility] Last Admin: 10/16/20 11:12 Dose: 1 each Documented by: Zinc Sulfate (Zinc Sulfate 220 Mg Cap) 220 mg PO DAILY [facility] Last Admin: 10/16/20 11:12 Dose: 220 mg Documented by: Objective - Vital Signs Vital signs: Vital Signs Temp 98.2 F 10/16/20 15:19 Pulse 78 10/16/20 15:19 Resp 16 10/16/20 15:19 BP 115/66 10/16/20 15:19 Pulse Ox 91 L 10/16/20 15:19 Intake & Output 10/15/20 10/16/20 10/16/20 18:59 06:59 18:59 Other: Voiding Method Toilet Toilet # Voids 2 1 - Exam GENERAL EXAM: comfortable in no apparent distress. HENT: No pallor no icterus CHEST: No chest wall deformity. Symmetrical expansion. LUNGS: Equal air entry with bilateral crackles, but no wheeze, rhonchi or dullness. CVS: Regular rate and rhythm, normal S1 and S2, no gallops, no murmurs, no rubs ABDOMEN: Soft, nontender. No hepatosplenomegaly, normal bowel sounds, no g uarding or rigidity. EXTREMITIES: No clubbing, no edema CENTRAL NERVOUS SYSTEM: No focal deficits - Labs CBC & Chem 7: 10/15/20 05:48 10/15/20 05:48 Labs: Abnormal Lab Results - Last 24 Hours (Table) 10/15/20 10/15/20 10/16/20 Range/Units 16:48 20:16 07:22 POC Glucose (mg/dL) 365 H 335 H 143 H (75-99) mg/dL 10/16/20 Range/Units 11:43 POC Glucose (mg/dL) 169 H (75-99) mg/dL Assessment and Plan Assessment: ASSESSMENT Acute COVID 19 pneumonitis Cough, shortness of breath related to the above Type 2 diabetes mellitus History of hypertension Dyslipidemia PLAN: Patient is currently on Remdesivir, dexamethasone, Lovenox, multivitamin supplements. Patient is encouraged to do incentive spirometry and prone ventilation. Activity as tolerated. Patient will receive her last dose of remdesivir today. Anticipate discharge in the next 24 hours.
[2020-10-17 06:46] LABS: Basophils # (A) 0.1 k/uL (0-0.2); Basophils % (A) 1 %; Eosinophils % (A) 0 %; HCT 36.6 % (34.0-46.0); HGB 12.3 gm/dL (11.4-16.0); Lymphocytes # (A) 1.5 k/uL (1.0-4.8); Lymphocytes % (A) 17 %; MCH 28.8 pg (25.0-35.0); MCHC 33.6 g/dL (31.0-37.0); MCV 85.6 fL (80.0-100.0); Mean Platelet Volume 6.6; Monocytes # (A) 0.6 k/uL (0-1.0); Monocytes % (A) 7 %; Neutrophils # (A) 6.6 k/uL (1.3-7.7); Neutrophils % (A) 74 %; Platelet Count 528 k/uL (150-450); RBC 4.28 m/uL (3.80-5.40); RDW 13.1 % (11.5-15.5); WBC 8.9 k/uL (3.8-10.6)
[2020-10-17 07:04] LABS: Glucose,Whole Blood 198 mg/dL (75-99)
[2020-10-17] MEDS: ZINC SULFATE 220 MG CAP PO SCH (07:54)
[2020-10-17] MEDS: metFORMIN 500 MG TAB PO SCH (07:54)
[2020-10-17] MEDS: FAMOTIDINE 20 MG TAB PO SCH (07:54)
[2020-10-17] MEDS: INSULIN ASPART (NovoLOG) 100 UNIT/ML VIAL SQ SCH ×2 (07:55→12:36)
[2020-10-17] MEDS: ASCORBIC ACID 500 MG TAB PO SCH (07:56)
[2020-10-17] MEDS: DEXAMETHASONE SOD PHOSPHATE 10 MG/ML 1 ML VIAL IV SCH (07:56)
[2020-10-17] MEDS: LOSARTAN 50 MG TAB PO SCH (07:57)
[2020-10-17] MEDS: ENOXAPARIN 40 MG/0.4 ML SYRINGE SQ SCH (07:57)
[2020-10-17] MEDS: TRIAMTERENE-HCTZ 37.5-25MG 1 EACH CAP PO SCH (07:57)
[2020-10-17] MEDS: CHOLECALCIFEROL 400 UNIT TAB PO SCH (07:58)
[2020-10-17] MEDS: Dulaglutide [Trulicity] 1.5 MG/0.5 ML Pen.Injctr SQ SCH (07:58)
[2020-10-17] MEDS ORDERED: NON FORMULARY DRUG (Dulaglutide [Trulicity] 1.5 MG/0.5 ML Pen.Injctr) SQ SCH (09:00)
[2020-10-17 09:59] VITALS: PULSE 72; RESP 18
[2020-10-17 10:10] LABS: African American GFR (CKD) 96.9 (60.0-200.0); Anion Gap 9.1 mmol/L (4.00-12.00); BUN/Creat Ratio 47.5 Ratio (12.00-20.00); Calcium 9.2 mg/dL (8.7-10.3); Carbon Dioxide 24.9 mmol/L (21.6-31.8); Non-African American GFR(CKD) 83.6 (60.0-200.0); Potassium 3.6 mmol/L (3.5-5.5)
[2020-10-17] MEDS: ALBUTEROL HFA INHALER INHALATION SCH ×3 (10:12→16:07)
[2020-10-17 11:23] LABS: Glucose,Whole Blood 287 mg/dL (75-99)
[2020-10-17] MEDS: THIAMINE 100 MG TAB PO SCH (12:36)
[2020-10-17] MEDS: FOLIC ACID 1 MG TAB PO SCH (12:36)
[2020-10-17] MEDS: MULTIVITAMINS, THERA 1 EACH TAB PO SCH (12:36)
[2020-10-17 12:46] VITALS: BMI 32.7
[2020-10-17 14:26] VITALS: BP 104/63; TEMP 97.6
--- NOTE | 2020-10-17 16:06 | PN ---
PROGRESS NOTE DATE OF SERVICE: 10/17/2020. REASON FOR FOLLOWUP: COVID-19 pneumonia. INTERVAL HISTORY: The patient is currently afebrile. Patient is breathing comfortably currently on room air. Denies having any chest pain or shortness of breath. Minimal cough. No abdominal pain. No diarrhea. PHYSICAL EXAMINATION: Blood pressure 104/63 with pulse of 72, temperature 97.6. She is 94% on room air. General description is a middle-aged female up in the chair in no distress. RESPIRATORY SYSTEM: Unlabored breathing, decreased intensity of breath sounds in the bases. No wheeze. HEART: S1, S2. Regular rate and rhythm. ABDOMEN: Soft, no tenderness. LABS: White count 8.9. Lymphopenia resolved. Creatinine 0.8. DIAGNOSTIC IMPRESSION AND PLAN: Patient with acute COVID-19 pneumonia overall improvement. Patient completed her remdesivir therapy, currently dexamethasone continue short course on discharge. Close outpatient followup. MMODL / IJN: [id number] /
--- NOTE | 2020-10-18 00:08 | P.DS ---
Providers Date of admission: 10/10/20 14:28 Attending physician: Sindi Ying Consults: 10/10/20 14:21 Consult Physician Urgent Consulting Provider: Lambert Ren Consult Reason/Comments: COVID Do you want consulting provider notified?: Yes 10/10/20 15:15 Consult Physician Routine Consulting Provider: Gallo Florian Consult Reason/Comments: pneumonia Do you want consulting provider notified?: Yes Primary care physician: Rigoberto Correa [facility] Course: Diagnoses: Bilateral Covid pneumonia Type 2 diabetes mellitus Essential hypertension Dyslipidemia Obesity with BMI of 32 Hepatic steatosis Hospital course: Patient is a pleasant 54 years old female with multiple medical problems as below who presents with Covid pneumonia, patient has been evaluated by infectious disease team as well as case folder, she was treated with dexamethasone as well as vitamin C, vitamin D, zinc, Lovenox. Also patient received Remdisvir . Chest CTA showing no pulmonary embolism, patchy subpleural infiltrates and a ground glass in the lower lungs. Correlate for possible early Covid pneumonia. Moderate to severe hepatic steatosis On the day of discharge patient states that she significantly improved she's on ly very minimally dyspneic with exertion, also with mild cough but no chest pain, no other complaints and patient is back close to her baseline, patient was eager to be discharged home today. Patient was cleared for discharge by infectious disease and pulmonary services patient was checked for home oxygen and she does not qualify Problems and management plan were discussed with the patient and he verbalized understanding and acceptance Patient was found stable and can be discharged home however he needs follow-up as an outpatient. Patient was instructed to follow up with PCP Dr. Sunny hylton one week and patient agrees to call and make her own appointment. Gen: patient is a AAOx3, no distress CVS: S1-S2, RRR, no murmur Lungs: B/L CTA, no wheezing Abdomen: soft, no distention, no tenderness, positive bowel sounds Extremity: no leg edema or induration Time spent more than 35 minutes Patient Condition at Discharge: Fair Plan - Discharge Summary Discharge Rx Participant: Yes New Discharge Prescriptions: New Dexamethasone [Decadron] 6 mg PO DAILY 5 Days #5 tablet Folic Acid 1 mg PO DAILY@1200 #30 tab Multivitamins, Thera [Multivitamin (formulary)] 1 each PO DAILY@1200 #30 tab Zinc Sulfate [Orazinc] 220 mg PO DAILY #30 cap Famotidine [Pepcid] 20 mg PO BID #60 tab guaiFENesin-Coden 100-10MG/5ML [Robitussin AC] 10 ml PO Q6H PRN ml PRN Reason: Cough Acetaminophen Tab [Tylenol] 650 mg PO Q6HR PRN tab PRN Reason: Mild Pain Or Fever > 100.5 Albuterol Inhaler [Ventolin Hfa Inhaler] 2 puff INHALATION RT-QID #1 inh Thiamine [Vitamin B-1] 100 mg PO DAILY@1200 #30 tab Ascorbic Acid [Vitamin C] 1,000 mg PO DAILY #30 tab Cholecalciferol [Vitamin D3 (10 Mcg = 400 Iu)] 400 unit PO DAILY #30 tab Continue Losartan Potassium 50 mg PO BID Triamterene-Hctz 37.5-25Mg [Dyazide 37.5-25 Capsule] 1 cap PO DAILY Atorvastatin [Lipitor] 40 mg PO HS Ergocalciferol (Vitamin D2) [Vitamin D2] 50,000 units PO MO metFORMIN HCL ER [Glucophage Xr] 500 mg PO DAILY Dulaglutide [Trulicity] 1.5 mg SQ TU Discharge Medication List Losartan Potassium 50 mg PO BID 06/20/18 [History] Atorvastatin [Lipitor] 40 mg PO HS 06/21/18 [History] Triamterene-Hctz 37.5-25Mg [Dyazide 37.5-25 Capsule] 1 cap PO DAILY 06/21/18 [History] Ergocalciferol (Vitamin D2) [Vitamin D2] 50,000 units PO MO 12/01/18 [History] Dulaglutide [Trulicity] 1.5 mg SQ TU 10/10/20 [History] metFORMIN HCL ER [Glucophage Xr] 500 mg PO DAILY 10/10/20 [History] Acetaminophen Tab [Tylenol] 650 mg PO Q6HR PRN tab 10/17/20 [Rx] Albuterol Inhaler [Ventolin Hfa Inhaler] 2 puff INHALATION RT-QID #1 inh 10/17/20 [Rx] Ascorbic Acid [Vitamin C] 1,000 mg PO DAILY #30 tab 10/17/20 [Rx] Cholecalciferol [Vitamin D3 (10 Mcg = 400 Iu)] 400 unit PO DAILY #30 tab 10/17/20 [Rx] Dexamethasone [Decadron] 6 mg PO DAILY 5 Days #5 tablet 10/17/20 [Rx] Famotidine [Pepcid] 20 mg PO BID #60 tab 10/17/20 [Rx] Folic Acid 1 mg PO DAILY@1200 #30 tab 10/17/20 [Rx] Multivitamins, Thera [Multivitamin (formulary)] 1 each PO DAILY@1200 #30 tab 10/17/20 [Rx] Thiamine [Vitamin B-1] 100 mg PO DAILY@1200 #30 tab 10/17/20 [Rx] Zinc Sulfate [Orazinc] 220 mg PO DAILY #30 cap 10/17/20 [Rx] guaiFENesin-Coden 100-10MG/5ML [Robitussin AC] 10 ml PO Q6H PRN ml 10/17/20 [Rx] Follow up Appointment(s)/Referral(s): Rigoberto Correa DO [Primary Care Provider] - 1-2 days (PLEASE CALL AND SCHEDULE APPOINTMENT ) Activity/Diet/Wound Care/Special Instructions: low carbohydrate 1600 k brie per day activity is restricted until you see your doctor Discharge Disposition: HOME SELF-CARE
[2020-10-18] MEDS ORDERED: Dulaglutide [Trulicity] 1.5 MG/0.5 ML Pen.Injctr SQ SCH (09:00)
== END 2020-10-17 16:30 | disposition home or self-care (01) | DRG 871 ==
LOC: EC 10:30 → 4SSUR 14:28
PROVIDERS: ADMIT Hospitalist; ATTEND Hospitalist
PROC: XW033E5 Introduction of Remdesivir Anti-infective into Peripheral Vein, Percutaneous Approach, New Technology Group 5 (ICD-10-PCS; principal; 2020-10-12)
DX: A41.89 Other specified sepsis (principal); U07.1 COVID-19; J96.01 Acute respiratory failure with hypoxia; N17.0 Acute kidney failure with tubular necrosis; J12.82 Pneumonia due to coronavirus disease 2019; E87.1 Hypo-osmolality and hyponatremia; I11.9 Hypertensive heart disease without heart failure; E11.65 Type 2 diabetes mellitus with hyperglycemia; D72.810 Lymphocytopenia; E66.9 Obesity, unspecified; K75.9 Inflammatory liver disease, unspecified; K76.0 Fatty (change of) liver, not elsewhere classified; E78.5 Hyperlipidemia, unspecified; Z68.32 Body mass index [BMI] 32.0-32.9, adult; Z79.84 Long term (current) use of oral hypoglycemic drugs; Z79.899 Other long term (current) drug therapy; Z71.3 Dietary counseling and surveillance; Z98.891 History of uterine scar from previous surgery; Z83.2 Family history of diseases of the blood and blood-forming organs and certain disorders involving the immune mechanism
CPT/HCPCS: 36415; 71045; 71046; 71275; 80048; 80053; 82728; 83605; 83615; 83735; 84145; 85025; 85379; 85610; 85730; 86140; 87635; 93005; 94640; 94760; 96374; 99285

== ENCOUNTER → 2020-10-26 | Outpatient (CLI) | payer BC ==
--- NOTE | 2020-10-26 12:26 | XR ---
EXAMINATION TYPE: XR chest 2V DATE OF EXAM: 10/26/2020 COMPARISON: 10/15/2020 INDICATION: Covid 19 TECHNIQUE: Frontal and lateral views of the chest are obtained. FINDINGS: The heart size is enlarged. The pulmonary vasculature is normal. Minimal infiltrate is at the right base. This is nonspecific. Atelectasis and atypical pneumonia coul d be considered. IMPRESSION: 1. Minimal right basilar infiltrate. Follow-up exams can be performed as clinically indicated
== END | disposition home or self-care (01) ==
LOC: RADXRYALE 11:10
PROVIDERS: ATTEND Physician Assistant Medical
DX: R91.8 Other nonspecific abnormal finding of lung field (principal)
CPT/HCPCS: 71046

== ENCOUNTER → 2020-11-30 | Outpatient (CLI) | payer BC ==
--- NOTE | 2020-11-30 11:02 | XR ---
EXAMINATION TYPE: XR chest 2V DATE OF EXAM: 11/30/2020 COMPARISON: 10/26/20 HISTORY: Shortness of breath TECHNIQUE: Frontal and lateral views of the chest are obtained. FINDINGS: Scattered senescent parenchymal changes noted. Hyperinflation compatible with COPD. No evidence for infiltrate. No evidence for atelectasis. Heart size is stable. Mediastinal structures are stable and grossly unremarkable. No evidence for hilar prominence. Degenerative changes dorsal spine. IMPRESSION: 1. No evidence for acute pulmonary disease.
== END | disposition home or self-care (01) ==
LOC: RADXRYALE 10:45
PROVIDERS: ATTEND Physician Assistant Medical
DX: U07.1 COVID-19 (principal)
CPT/HCPCS: 71046

== ENCOUNTER → 2021-01-09 | Outpatient (CLI) | payer BC ==
--- NOTE | 2021-01-09 12:35 | XR ---
EXAMINATION TYPE: XR chest 2V DATE OF EXAM: 01/09/2021 COMPARISON: 11/30/2020 INDICATION: Bronchopneumonia right upper lobe chest pressure TECHNIQUE: Frontal and lateral views of the chest are obtained. FINDINGS: The heart size is prominent. The pulmonary vasculature is normal. The lungs are clear. No suspicious infiltrates are evident. There is some scoliosis within the thora cic spine. IMPRESSION: 1. Cardiomegaly
== END | disposition home or self-care (01) ==
LOC: RADXRYALE 10:52
PROVIDERS: ATTEND Physician Assistant Medical
DX: I51.7 Cardiomegaly (principal)
CPT/HCPCS: 71046

== ENCOUNTER → 2021-02-19 | Outpatient (CLI) | payer BC ==
[2021-02-19 19:25] LABS: Basophils # (A) 0.05 X 10*3/uL (0.00-0.10); Basophils % (A) 0.6 %; Eosinophils # (A) 0.12 X 10*3/uL (0.04-0.35); Eosinophils % (A) 1.5 %; HGB 12.8 g/dL (12.0-15.0); Lymphocytes # (A) 1.73 X 10*3/uL (0.90-5.00); Lymphocytes % (A) 21.5 %; MCH 28.9 pg (27.0-32.0); MCHC 32.8 g/dL (32.0-37.0); Mean Platelet Volume 10.5 fL (9.5-12.2); Monocytes # (A) 0.53 X 10*3/uL (0.20-1.00); Monocytes % (A) 6.6 %; Neutrophils # (A) 5.55 X 10*3/uL (1.80-7.70); Neutrophils % (A) 69.1 %; Platelet Count 303 X 10*3/uL (140-440); RBC 4.43 X 10*6/uL (4.10-5.20); RDW 12.4 % (11.5-14.5); WBC 8.04 X 10*3/uL (4.50-10.00)
[2021-02-19 21:07] LABS: African American GFR (CKD) 96.2 (60.0-200.0); Anion Gap 13.9 mmol/L (4.00-12.00); BUN/Creat Ratio 21.25 Ratio (12.00-20.00); Calcium 9.6 mg/dL (8.7-10.3); Carbon Dioxide 24.1 mmol/L (21.6-31.8); Potassium 3.5 mmol/L (3.5-5.5)
[2021-02-19 21:15] LABS: T4, Free (Free Thyroxine) 1.2 ng/dL (0.80-1.80)
== END | disposition home or self-care (01) ==
LOC: LABWHC1 14:06
PROVIDERS: ATTEND Internal Medicine
DX: R00.0 Tachycardia, unspecified (principal)
CPT/HCPCS: 36415; 80048; 84439; 84443; 85025; 85379

== ENCOUNTER → 2021-09-13 | Outpatient (CLI) | payer BC ==
--- NOTE | 2021-09-13 19:43 | ECHOF ---
Referral Reason:I11.9 hypertensive heart disease, I47.1 MEASUREMENTS -------- HEIGHT: 154.9 cm WEIGHT: 82.1 kg BP: IVSd: 1.5 cm (0.6 - 1.1) LVIDd: 4.2 cm (3.9 - 5.3) LVPWd: 1.5 cm (0.6 - 1.1) EDV(Teich): 78 ml IVSs: 2.3 cm LVIDs: 2.1 cm LVPWs: 1.8 cm %IVS Thck: 49 % ESV(Teich): 15 ml EF(Teich): 81 % %FS: 49 % SV(Teich): 63 ml IVC: 22.40 mm Ao Diam: 2.1 cm (2.0 - 3.7) LA Diam: 3.2 cm (2.7 - 3.8) AV Cusp: 1.9 cm (1.5 - 2.6) EPSS: 1.5 cm MV E Marcin: 0.65 m/s MV DecT: 199 ms MV Dec [place]: 3.3 m/s MV A Marcin: 0.89 m/s MV E/A Ratio: 0.73 MV PHT: 58 ms MR Vmax: 1.28 m/s MR maxP.51 mmHg AV Vmax: 1.27 m/s AV maxP.42 mmHg TR Vmax: 1.08 m/s TR maxP.64 mmHg RAP: 5.00 mmHg RVSP: 9.64 mmHg MV EF SLOPE: 27.86 mm/s (70 - 150) MV EXCURSION: 13.54 mm (> 18.000) FINDINGS -------- This was a technically adequate study. The left ventricular size is normal. There is moderate concentric left ventricular hypertrophy. O verall left ventricular systolic function is normal with, an EF between 55 - 60 %. The right ventricle is normal in size. The left atrial size is normal. The right atrial size is normal. The aortic valve is trileaflet and appears structurally normal. The mitral valve is normal. There is trace mitral regurgitation. The tricuspid valve appears structurally normal. Trace tricuspid regurgitation present. Right jordan tricular systolic pressure is normal at < 35 mmHg. There is no pulmonic regurgitation present. The aortic root size is normal. Normal inferior vena cava with normal inspiratory collapse consistent with estimated right atrial pre ssure of 5 mmHg. Echo free space indicative of a pericardial fat pad. There is no pericardial effusion. CONCLUSIONS -------- 1. The left ventricular size is normal. 2. There is moderate concentric left ventricular hypertrophy. 3. Overall left ventricular systolic function is normal with, an EF between 55 - 60 %. 4. There is trace mitral regurgitation. 5. Trace tricuspid regurgitation present. 6. There is no pericardial effusion. PROGRAMMER ANALYST: Lubna Price RDCS
== END | disposition home or self-care (01) ==
LOC: RADECHMAIN 13:39
PROVIDERS: ATTEND Internal Medicine Cardiovascular Disease
DX: I34.0 Nonrheumatic mitral (valve) insufficiency (principal); I07.1 Rheumatic tricuspid insufficiency
CPT/HCPCS: 93306

== ENCOUNTER → 2021-09-27 | Outpatient (CLI) | payer BC ==
--- NOTE | 2021-09-27 19:19 | SFUN ---
SLEEP CENTER FOLLOW UP NOTE DATE OF SERVICE: 09/27/2021 55-year-old lady has been followed in Sleep Center for treatment of obstructive sleep apnea-hypopnea syndrome. In February of 2019, patient had home sleep apnea test which showed that she has severe sleep apnea. Apnea-hypopnea index 33.1 with oxygen desaturation to 75%. For family reasons, she was not able to get her treatment at that time. Presently, she continued to have symptoms of obstructive sleep apnea, awakenings from sleep, snoring. MEDICATIONS: Losartan 50 mg twice a day, Triamterene 37.5 mg once a day, atorvastatin 40 mg once a day, Trulicity 3.0 once a week. Tresiba 18 units once a day in the morning. PHYSICAL EXAMINATION: GENERAL: Patient in no distress. BP 126/70, HR 95, RR 15, height 5 feet 1-3/4 inches, weight 181.4 pounds, body mass index 33.4, temperature 97. Oxygen saturation at room air 98%. Oropharynx: Extremely low position of soft palate, Mallampati 4. NECK is 16 inches in circumference. Neck: Supple, no JVD. Thyroid is not palpable. LUNGS: Clear to percussion and to auscultation. Good air exchange. No wheezing or rhonchi. HEART: S1, S2 regular. No murmurs, gallops, or rubs. ABDOMEN: Slightly obese. Soft and nontender. Bowel sounds are present. No organomegaly appreciated. EXTREMITIES: No clubbing or cyanosis. ENTERTAINMENT & MEDIA CORRESPONDENT: Awake, alert, and oriented X3. Cranial nerves 2 to 7 intact. There is no fasciculation or atrophy. noted. No focal deficits observed. IMPRESSION: 1. Snoring, awakenings from sleep, severe obstructive sleep apnea by results of home sleep apnea test in the middle of 2018. 2. Obesity, BMI 33.4. 3. Hypertension. 4. History of cardiac arrhythmia. 5. Diabetes mellitus. 6. Hyperlipidemia. 7. Menopause. 8. Status post in the past. PLAN: 1. Repeat home sleep apnea test to confirm obstructive sleep apnea-hypopnea syndrome at the present time. 2. CPAP treatment for correction of respiratory abnormalities after sleep study will be done. 3. Watching and losing weight. 4. Sleep hygiene with regular time in bed for at least 7-1/2 to 8 hours. 5. Precautions related to driving. No driving if feeling sleepiness. Thank you very much for allowing me to participate in the management of your patient. Sincerely, Fadi Elias MD, PhD, FAASM Diplomat of [employer] Sleep Medicine Board of [place] Venetian Blind Installer of [facility] [place] MMDIYA / TORIE: [id number] /
== END ==
LOC: SLEEP 11:20
PROVIDERS: ATTEND Internal Medicine
DX: G47.33 Obstructive sleep apnea (adult) (pediatric) (principal); E66.9 Obesity, unspecified; I10 Essential (primary) hypertension; E11.9 Type 2 diabetes mellitus without complications; E78.5 Hyperlipidemia, unspecified; Z86.79 Personal history of other diseases of the circulatory system; Z78.0 Asymptomatic menopausal state; Z87.59 Personal history of other complications of pregnancy, childbirth and the puerperium; Z68.33 Body mass index [BMI] 33.0-33.9, adult; Z79.899 Other long term (current) drug therapy

== ENCOUNTER → 2022-06-05 | Outpatient (CLI) | payer BC ==
--- NOTE | 2022-06-05 12:46 | P.PN ---
Subjective DATE: 06/05/2022 FOLLOW UP VISIT. Patient with obstructive sleep apnea hypopnea syndrome return to sleep center for follow-up visit. Recently patient had sleep study which documented obstructive sleep apnea hypopnea syndrome. Patient was initiated on PAP therapy and today is first visit after treatment was started. Patient was able to use PAP equipment every night for the whole night. The patient does not have significant problems with the mask, PAP pressure and humidification. [place] sleepiness scale is 2. I checked information from PAP unit. PAP unit pressure 5-15, average 11.5 cm H2O. Usage is 80 % , average 5 hours per night. Leak is 9.9 l/m, which is in acceptable range. Apnea Hypopnea Index is 0.1, which is normal. MEDICATIONS:1. Losartan 50 mg twice a day 2. Triamteren 37.5 mg once a day 3. Atorvastatin 40 mg once a day 4. Trulicity 5. Insulin During physical exam: GENERAL: A pleasant patient without any distress. VITAL SIGNS: BP 112/60, HR 86, RR 16 , weight 187.8, temperature 96.6, oxygen saturation at room air 99 . HEENT: PERRLA, EOMI.low position of soft palate, Mallapati4 . NECK: Supple. No JVD. LUNGS: Clear to percussion and to auscultation. Good air exchange. No wheezing or rhonchi. HEART: S1, S2 regular. ABDOMEN: Soft and nontender. Slightly obese EXTREMITIES: No clubbing or cyanosis. SHIPBUILDING DRAFTSPERSON: Awake, alert, and oriented x3. No focal deficit. Impressions: 1. Obstructive sleep apnea-hypopnea syndrome. Patient demonstrated borderline compliance with treatment, benefiting from treatment. 2. Hypertension. 3. Diabetes mellitus. 4. Mild obesity. 5. History of cardiac arrhythmia. 6. Hyperlipidemia. 7. Menopause. 8. Status post in the past. Plan: 1. Continue using PAP equipment every night for the whole night. 2. To change air filter at least 1-2 times per month. 3. PAP unit should stay lower then position of the head. 4. Advised patient to remove all remaining water from humidifier canister daily and make it dry after each usage. Refill canister with fresh distilled water before each usage. 5. Sleep hygiene with regular time in bed for at least 8 hours. 6. Precautions related to driving. No driving if feel any sleepiness. 7. I will maintain prescription for PAP supplies including mask, tube, filters. 8. Follow up visit in 6 months or earlier if patient has any problems. 9. Watching weight. Thank you very much for allowing me to participate in the management of your patient. Fadi Elias MD, PhD, FAASM. Diplomat of [place] [employer], Sleep Medicine Board by [employer] Manager [employer] [facility] [place]
== END ==
LOC: SLEEP 11:39
PROVIDERS: ATTEND Internal Medicine
DX: G47.33 Obstructive sleep apnea (adult) (pediatric) (principal); I10 Essential (primary) hypertension; E11.9 Type 2 diabetes mellitus without complications; E66.9 Obesity, unspecified; E78.5 Hyperlipidemia, unspecified; Z87.59 Personal history of other complications of pregnancy, childbirth and the puerperium; Z78.0 Asymptomatic menopausal state; Z86.79 Personal history of other diseases of the circulatory system; Z99.89 Dependence on other enabling machines and devices; Z79.4 Long term (current) use of insulin
CPT/HCPCS: 99212

== ENCOUNTER → 2023-06-12 | Outpatient (CLI) | payer BC ==
--- NOTE | 2023-06-14 16:45 | MM ---
Reason for Exam: Screening (asymptomatic). Last mammogram was performed 5 year(s) and 10 month(s) ago. Patient History: Menarche at age 14. First Full-Term at age 28. Postmenopausal. Risk Values: Liz 5 year model risk: 1.3%. NCI Lifetime model risk: 8.0%. Prior Study Comparison: 08/11/2017 Bilateral Screening Mammogram, [facility]. Tissue Density: There are scattered fibroglandular densities. Findings: Analyzed By CAD. There is no suspicious group of microcalcifications or new suspicious mass in either breast. Overall Assessment: Negative, BI-RAD 1 Management: Screening Mammogram of both breasts in 1 year. . Patient should continue monthly self-breast exams. A clinical breast exam by your physician is recommended on an annual basis. This exam should not preclude additional follow-up of suspicious palpable abnormalities. Note on Liz scores and lifetime risk: 1. A Liz score greater than 3% is considered moderate risk. If this is the case, consider specialist referral to assess eligibility for a risk reducing agent. 2. If overall lifetime risk for the development of breast cancer is 20% or higher, the patient may qualify for future screening with alternating mammogram and breast MRI. Electronically signed and approved by: Ervin Pearce M.D. Radiologist
== END | disposition home or self-care (01) ==
LOC: RADMAMWWP 13:34
PROVIDERS: ATTEND Family Medicine
DX: Z12.31 Encounter for screening mammogram for malignant neoplasm of breast (principal); Z78.0 Asymptomatic menopausal state
CPT/HCPCS: 77067

== ENCOUNTER → 2023-06-18 | Outpatient (CLI) | payer BC ==
--- NOTE | 2023-06-18 11:48 | P.PN ---
Subjective DATE: 06/18/2023 FOLLOW UP VISIT. Patient with obstructive sleep apnea hypopnea syndrome return to sleep center for follow-up visit. Information from previous visit have been reviewed. Patient is using PAP equipment every night for the whole night, getting PAP supplies in time. The patient does not have significant problems with the mask, PAP unit and humidification. [place] sleepiness scale is 2, which is perfect. I checked information from PAP unit. PAP unit pressure 5-15, average 9.6 cm H2O. Usage is 93% and 73 % for more then 4 hours, average 5.5 hours per night. Leak is 21.0 l/m, which is in acceptable range. Apnea Hypopnea Index is perfect 0.1. MEDICATIONS:1. Losartan 50 mg twice a day 2. Triamterene 37.5 mg once a day 3. Crestor 4. Insulin 5. Pioglitazone 15 mg once a day During physical exam: GENERAL: A pleasant patient without any distress. VITAL SIGNS: BP 123/70, HR 79, RR 16 , weight 187.0, temperature 97.9, oxygen saturation at room air 99 % . HEENT: PERRLA, EOMI.low position of soft palate, Mallapati 4 . NECK: Supple. No JVD. LUNGS: Clear to percussion and to auscultation. Good air exchange. No wheezing or rhonchi. HEART: S1, S2 regular. ABDOMEN: Soft and nontender. Slightly obese EXTREMITIES: No clubbing or cyanosis. ON AIR ANNOUNCER: Awake, alert, and oriented x3. No focal deficit. Impressions: 1. Obstructive sleep apnea-hypopnea syndrome. Patient demonstrated good compliance with treatment, benefiting from treatment. 2. Hypertension. 3. Diabetes mellitus. 4. Hyperlipidemia. 5. Obesity, patient lost 8 pounds since previous visit. 6. Menopause. Plan: 1. Continue using PAP equipment every night for the whole night. 2. To change air filter at least 1-2 times per month. 3. PAP unit should stay lower then position of the head. 4. Advised patient to remove all remaining water from humidifier canister daily and make it dry after each usage. Refill canister with fresh distilled water before each usage. 5. Sleep hygiene with regular time in bed for at least 8 hours. 6. Precautions related to driving. No driving if feel any sleepiness. 7. I will maintain prescription for PAP supplies including mask, tube, filters. 8. Follow up visit in 6 months or earlier if patient has any problems. 9. Watching and losing weight. Thank you very much for allowing me to participate in the management of your patient. Fadi Elias MD, PhD, FAASM. Diplomat of [employer] [employer], Sleep Medicine Board by [employer] Mechanical Engineering Teacher of [facility] [place]
== END ==
LOC: 3 N SLEEP 11:22
PROVIDERS: ATTEND Internal Medicine
DX: G47.33 Obstructive sleep apnea (adult) (pediatric) (principal); I10 Essential (primary) hypertension; E11.9 Type 2 diabetes mellitus without complications; E78.5 Hyperlipidemia, unspecified; E66.9 Obesity, unspecified; Z78.0 Asymptomatic menopausal state; Z79.4 Long term (current) use of insulin; Z79.84 Long term (current) use of oral hypoglycemic drugs; Z79.899 Other long term (current) drug therapy; Z99.89 Dependence on other enabling machines and devices; Z79.85 Long-term (current) use of injectable non-insulin antidiabetic drugs
CPT/HCPCS: 99212

== ENCOUNTER → 2024-01-07 | Outpatient (CLI) | payer BC ==
--- NOTE | 2024-01-07 13:44 | P.PN ---
Subjective DATE: 12/24/2023 FOLLOW UP VISIT. Patient with obstructive sleep apnea hypopnea syndrome return to sleep center for follow-up visit. Information from previous visit have been reviewed. Patient is using PAP equipment every night for the whole night, getting PAP supplies in time. The patient does not have significant problems with the mask, PAP unit and humidification. Thomas sleepiness scale is 3. I checked information from PAP unit. PAP unit pressure 5-15, average 10.9 cm H2O. Usage is 90% and 77% for more then 4 hours, average 5.8 hours per night. Leak is increased to 35.5 l/m, which is in acceptable range. Apnea Hypopnea Index is 0.3, which is normal. MEDICATIONS:1. Losartan 50 mg twice a day 2. Triamteren 37.5 mg once a day 3. Mounjaro 4. Insulin During physical exam: GENERAL: A pleasant patient without any distress. VITAL SIGNS: Please see below, BMI 34.3. HEENT: PERRLA, EOMI.low position of soft palate, Mallapati 4 . NECK: Supple. No JVD. LUNGS: Clear to percussion and to auscultation. Good air exchange. No wheezing or rhonchi. HEART: S1, S2 regular. ABDOMEN: Soft and nontender.[] EXTREMITIES: No clubbing or cyanosis. WIRE COINER: Awake, alert, and oriented x3. No focal deficit. Impressions: 1. Obstructive sleep apnea-hypopnea syndrome. Patient demonstrated good compliance with treatment, benefiting from treatment. 2. Diabetes mellitus. 3. Hypertension. 4. Hyperlipidemia. 5. Obesity, patient lost 2 pounds comparing with previous visit. Plan: 1. Continue using PAP equipment every night for the whole night. 2. To change air filter at least 1-2 times per month. 3. PAP unit should stay lower then position of the head. 4. Advised patient to remove all remaining water from humidifier canister daily and make it dry after each usage. Refill canister with fresh distilled water before each usage. 5. Sleep hygiene with regular time in bed for at least 8 hours. 6. Precautions related to driving. No driving if feel any sleepiness. 7. I will maintain prescription for PAP supplies including mask, tube, filters. 8. Watching and losing weight. 9. Follow up visit in 6 months or earlier if patient has any problems. Thank you very much for allowing me to participate in the management of your patient. Fadi Elias MD, PhD, FAASM. Diplomat of [place] [employer], Sleep Medicine Board by [employer] Laborer [employer] [facility] [place] Objective - Vital Signs Vital signs: Vital Signs Temp 97.5 F L 01/07/24 13:27 Pulse 94 01/07/24 13:27 Resp 16 01/07/24 13:27 BP 99/51 01/07/24 13:27 Pulse Ox 99 01/07/24 13:27 FiO2
[2024-01-07 13:52] VITALS: BP 99/51; PULSE 94; RESP 16; TEMP 97.5
== END ==
LOC: 3 N SLEEP 13:13
PROVIDERS: ATTEND Internal Medicine
DX: G47.33 Obstructive sleep apnea (adult) (pediatric) (principal); E11.9 Type 2 diabetes mellitus without complications; I10 Essential (primary) hypertension; E78.5 Hyperlipidemia, unspecified; E66.9 Obesity, unspecified; Z99.89 Dependence on other enabling machines and devices; Z79.4 Long term (current) use of insulin; Z79.85 Long-term (current) use of injectable non-insulin antidiabetic drugs; Z79.899 Other long term (current) drug therapy
CPT/HCPCS: 99212

== ENCOUNTER → 2024-01-30 | Outpatient (CLI) | payer BC ==
--- NOTE | 2024-01-31 07:44 | XR ---
Thoracic spine. HISTORY: Back pain. COMPARISON: None. TECHNIQUE: 3 views of the thoracic spine were obtained. FINDINGS: Mild dextroscoliosis of the thoracic spine. On the lateral projection, the thoracic vertebral segment s are normal in height and alignment. There is mild spondylosis throughout the thoracic region indica ting mild degenerative disc disease. The paraspinal soft tissues are unremarkable. IMPRESSION: 1. Mild dextroscoliosis. 2. Mild diffuse degenerative disc disease.
== END | disposition home or self-care (01) ==
LOC: RADXRYALE 15:35
PROVIDERS: ATTEND Physician Assistant Medical
DX: M41.84 Other forms of scoliosis, thoracic region (principal); M51.34 Other intervertebral disc degeneration, thoracic region
CPT/HCPCS: 72072

== ENCOUNTER 2024-05-30 10:25 | Emergency (ER) | payer BC ==
--- NOTE | 2024-05-30 11:16 | ED ---
General Adult HPI - General Chief complaint: Back Pain/Injury Stated complaint: Back pain Time Seen by Provider: 05/30/24 10:34 Source: patient, RN notes reviewed Mode of arrival: ambulatory Limitations: no limitations - History of Present Illness Initial comments: Patient is a 58-year-old female present to the emergency department with concerns with back pain. Symptoms have been present for the past couple months. Patient did see her doctor who told her it was regular back pain. Patient also saw a chiropractor without improvement of symptoms. Discomfort is right CVA region and does radiate somewhat towards the side and front. Discomfort is p ositional. - Related Data Home Medications Medication Instructions Recorded Confirmed Atorvastatin [Lipitor] 40 mg PO HS 06/21/18 10/15/21 Triamterene-Hctz 37.5-25Mg 1 cap PO DAILY 06/21/18 10/15/21 [Dyazide 37.5-25 Capsule] Ergocalciferol (Vitamin D2) 50,000 units PO TU 12/01/18 10/15/21 [Vitamin D2] Albuterol Inhaler [Ventolin Hfa 2 puff INHALATION RT-QID PRN 10/15/21 10/15/21 Inhaler] Dulaglutide [Trulicity] 3 mg SQ FR 10/15/21 10/15/21 Insulin Degludec [Tresiba 18 units SQ DAILY 10/15/21 10/15/21 Flextouch U-100 Pen] Losartan Potassium 50 mg PO BID 10/15/21 10/15/21 Multivitamins, Thera [Multivitamin 1 tab PO DAILY 10/15/21 10/15/21 (formulary)] Pioglitazone [Actos] 15 mg PO DAILY 10/15/21 10/15/21 Zinc 50 mg PO DAILY 10/15/21 10/15/21 Previous Rx's Medication Instructions Recorded Ascorbic Acid [Vitamin C] 1,000 mg PO DAILY #30 tab 10/17/20 Allergies Allergy/AdvReac Type Severity Reaction Status Date / Time No Known Allergies Allergy Verified 05/30/24 10:30 Review of Systems ROS Statement: Those systems with pertinent positive or pertinent negative responses have been documented in the HPI. ROS Other: All systems not noted in ROS Statement are negative. Constitutional: Denies: fever Eyes: Denies: eye pain ENT: Denies: ear pain Respiratory: Denies: cough Cardiovascular: Denies: chest pain Endocrine: Denies: fatigue Gastrointestinal: Denies: abdominal pain Genitourinary: Reports: hematuria (Mild x 1) Musculoskeletal: Reports: as per HPI Neurological: Denies: weakness Past Medical History Past Medical History: Diabetes Mellitus, Hypertension Additional Past Medical History / Comment(s): type II DM, history of palpitations/tachycardia History of Any Multi-Drug Resistant Organisms: None Reported Past Surgical History: Section Past Anesthesia/Blood Transfusion Reactions: No Reported Reaction Past Psychological History: No Psychological Hx Reported Smoking Status: Never smoker Past Alcohol Use History: None Reported Past Drug Use History: None Reported - Past Family History Son(s) Family Medical History: Deep Vein Thrombosis (DVT) General Exam Limitations: no limitations General appearance: alert, in no apparent distress Head exam: Present: normocephalic Eye exam: Present: normal appearance Neck exam: Present: normal inspection Respiratory exam: Present: normal lung sounds bilaterally. Absent: chest wall tenderness Cardiovascular Exam: Present: regular rate, normal rhythm, normal heart sounds Expanded Peripheral pulses: 2+: Radial (R), Radial (L), Dorsalis Pedis (R), Dorsalis Pedis (L) GI/Abdominal exam: Present: normal bowel sounds. Absent: soft, distended, tenderness, guarding, rebound, rigid, pulsatile mass Extremities exam: Present: normal inspection. Absent: pedal edema, calf tenderness Back exam: Present: CVA tenderness (R) Neurological exam: Present: alert. Absent: motor sensory deficit Psychiatric exam: Present: normal affect, normal mood Skin exam: Present: normal color Course Vital Signs 05/30/24 05/30/24 10:28 13:39 Temperature 97.4 F L Pulse Rate 81 64 Respiratory 16 18 Rate Blood Pressure 148/69 135/74 O2 Sat by Pulse 98 98 Oximetry EKG Findings - EKG Results: EKG: interpreted by ERMD (Low QRS voltage. Septal Q waves.), sinus rhythm, normal axis, normal ST/T EKG shows: bradycardia Medical Decision Making - Medical Decision Making MDM back was pt. sent in by a medical professional or institution (, PA, HISTOLOGY TECHNOLOGIST, urgent care, hospital, or prison...) When possible be specific @ -No Did you speak to anyone other than the patient for history (EMS, parent, family, police, friend...)? What history was obtained from this source @ -No Did you review nursing and triage notes (agree or disagree)? Why? @ -I reviewed and agree with nursing and triage notes Were old charts reviewed (outside hosp., previous admission, EMS record, old EKG, old radiological studies, urgent care reports/EKG's, prison records)? Report findings @ -Previous chest x-ray also does not reveal any acute abnormality Differential Diagnosis (chest pain, altered mental status, abdominal pain women, abdominal pain men, vaginal bleeding, weakness, fever, dyspnea, syncope, headache, dizziness, GI bleed, back pain, seizure, CVA, palpatations, mental health, musculoskeletal)? @ -Differential Back Pain: Strain, zoster, cauda equina syndrome, epidural abscess, vertebral osteomyeliti s, discitis, fracture, subluxation, disc herniation, DJD, spinal stenosis, dissection, AAA, pancreatitis, peptic ulcer disease, pyelonephritis, kidney stone, this is not meant to be an all-inclusive list. EKG interpreted by me (3pts min.). @ -As above X-rays interpreted by me (1pt min.). @ -Chest x-ray shows no acute process. Abdominal x-ray does show some increased stool CT interpreted by me (1pt min.). @ -CT chest negative for pulmonary embolism,. CT abdomen pelvis shows hiatal hernia and some fullness of the endometrium. U/S interpreted by me (1pt. min.). @ -None done What testing was considered but not performed or refused? (CT, X-rays, U/S, labs)? Why? @ -None What meds were considered but not given or refused? Why? @ -None Did you discuss the management of the patient with other professionals (professionals i.e. , PA, HISTOLOGY TECHNOLOGIST, lab, RT, psych nurse, director social, solutions executive security, te acher, chief learning officer, case loader operator)? Give summary @ -No Was smoking cessation discussed for >3mins.? @ -No Was critical care preformed (if so, how long)? @ -No Were there social determinants of health that impacted care today? How? (Homelessness, low income, unemployed, alcoholism, drug addiction, transportation, low edu. Level, literacy, decrease access to med. care, fpc, rehab)? @ -No Was there de-escalation of care discussed even if they declined (Discuss DNR or withdrawal of care, Hospice)? DNR status @ -No What co-morbidities impacted this encounter? (DM, HTN, Smoking, COPD, CAD, C ancer, CVA, ARF, Chemo, Hep., AIDS, mental health diagnosis, sleep apnea, morbid obesity)? @ -None Was patient admitted / discharged? Hospital course, mention meds given and route, prescriptions, significant lab abnormalities, going to OR and other pertinent info. @ -Patient presents with several months of back and side pain that is positional. Workup unremarkable for acute abnormality. Patient will be discharged for follow-up. Patient specifically updated on need for ultrasound of the endometrium. Patient was reevaluated and resting comfortably in bed. Patient is updated Undiagnosed new problem with uncertain prognosis? @ -No Drug Therapy requiring intensive monitoring for toxicity (Heparin, Nitro, Insulin, Cardizem)? @ -No Were any procedures done? @ -No Diagnosis/symptom? @ -Back pain Acute, or Chronic, or Acute on Chronic? @ -Acute on chronic Uncomplicated (without systemic symptoms) or Complicated (systemic symptoms)? @ -Default Side effects of treatment? @ -No Exacerbation, Progression, or Severe Exacerbation? @ -No Poses a threat to life or bodily function? How? (Chest pain, [place], CA, pneumonia, PE, COPD, DKA, ARF, appy, cholecystitis, CVA, Diverticulitis, Homicidal, Suicidal, threat to staff... and all critical care pts) @ -No - Lab Data Result diagrams: 05/30/24 11:18 05/30/24 11:18 Lab Results 05/30/24 05/30/24 05/30/24 Range/Units 11:18 11:18 11:18 WBC 10.8 H (3.8-10.6) k/uL RBC 4.94 (3.80-5.40) m/uL Hgb 14.8 (11.4-16.0) gm/dL Hct 43.8 (34.0-46.0) % MCV 88.7 (80.0-100.0) fL MCH 30.0 (25.0-35.0) pg MCHC 33.8 (31.0-37.0) g/dL RDW 13.7 (11.5-15.5) % Plt Count 279 (150-450) k/uL MPV 7.9 Neutrophils % 79 % Lymphocytes % 14 % Monocytes % 6 % Eosinophils % 1 % Basophils % 0 % Neutrophils # 8.6 H (1.3-7.7) k/uL Lymphocytes # 1.5 (1.0-4.8) k/uL Monocytes # 0.6 (0-1.0) k/uL Eosinophils # 0.1 (0-0.7) k/uL Basophils # 0.0 (0-0.2) k/uL PT 10.3 (10.0-12.5) sec INR 0.9 (<1.2) APTT 23.9 (22.0-30.0) sec D-Dimer 0.62 H (<0.60) mg/L FEU Sodium (137-145) mmol/L Potassium (3.5-5.1) mmol/L Chloride (98-107) mmol/L Carbon Dioxide (22-30) mmol/L Anion Gap mmol/L BUN (7-17) mg/dL Creatinine (0.52-1.04) mg/dL Est GFR (CKD-EPI)AfAm (>60 ml/min/1.73 sqM) Est GFR (CKD-EPI)NonAf (>60 ml/min/1.73 sqM) Glucose (74-99) mg/dL Calcium (8.4-10.2) mg/dL Total Bilirubin (0.2-1.3) mg/dL AST (14-36) U/L ALT (4-34) U/L Alkaline Phosphatase (38-126) U/L Total Protein (6.3-8.2) g/dL Albumin (3.5-5.0) g/dL Amylase (30-110) U/L Lipase (23-300) U/L Urine Color Colorless Urine Appearance Clear (Clear) Urine pH 7.5 (5.0-8.0) Ur Specific [place] 1.019 (1.001-1.035) Urine Protein Negative (Negative) Urine Glucose (UA) Negative (Negative) Urine Ketones Negative (Negative) Urine Blood Small H (Negative) Urine Nitrite Negative (Negative) Urine Bilirubin Negative (Negative) Urine Urobilinogen <2.0 (<2.0) mg/dL Ur Leukocyte Esterase Moderate H (Negative) Urine RBC 36 H (0-5) /hpf Urine WBC 6 H (0-5) /hpf Ur Squamous Epith Cells 2 (0-4) /hpf 05/30/24 Range/Units 11:18 WBC (3.8-10.6) k/uL RBC (3.80-5.40) m/uL Hgb (11.4-16.0) gm/dL Hct (34.0-46.0) % MCV (80.0-100.0) fL MCH (25.0-35.0) pg MCHC (31.0-37.0) g/dL RDW (11.5-15.5) % Plt Count (150-450) k/uL MPV Neutrophils % % Lymphocytes % % Monocytes % % Eosinophils % % Basophils % % Neutrophils # (1.3-7.7) k/uL Lymphocytes # (1.0-4.8) k/uL Monocytes # (0-1.0) k/uL Eosinophils # (0-0.7) k/uL Basophils # (0-0.2) k/uL PT (10.0-12.5) sec INR (<1.2) APTT (22.0-30.0) sec D-Dimer (<0.60) mg/L FEU Sodium 139 (137-145) mmol/L Potassium 4.7 (3.5-5.1) mmol/L Chloride 101 (98-107) mmol/L Carbon Dioxide 31 H (22-30) mmol/L Anion Gap 7 mmol/L BUN 30 H (7-17) mg/dL Creatinine 0.63 (0.52-1.04) mg/dL Est GFR (CKD-EPI)AfAm >90 (>60 ml/min/1.73 sqM) Est GFR (CKD-EPI)NonAf >90 (>60 ml/min/1.73 sqM) Glucose 121 H (74-99) mg/dL Calcium 10.1 (8.4-10.2) mg/dL Total Bilirubin 1.1 (0.2-1.3) mg/dL AST 47 H (14-36) U/L ALT 26 (4-34) U/L Alkaline Phosphatase 35 L (38-126) U/L Total Protein 7.7 (6.3-8.2) g/dL Albumin 4.9 (3.5-5.0) g/dL Amylase 76 (30-110) U/L Lipase 165 (23-300) U/L Urine Color Urine Appearance (Clear) Urine pH (5.0-8.0) Ur Specific [place] (1.001-1.035) Urine Protein (Negative) Urine Glucose (UA) (Negative) Urine Ketones (Negative) Urine Blood (Negative) Urine Nitrite (Negative) Urine Bilirubin (Negative) Urine Urobilinogen (<2.0) mg/dL Ur Leukocyte Esterase (Negative) Urine RBC (0-5) /hpf Urine WBC (0-5) /hpf Ur Squamous Epith Cells (0-4) /hpf Disposition Clinical Impression: Back pain Disposition: HOME SELF-CARE Condition: Stable Instructions (If sedation given, give patient instructions): Acute Low Back Pain (ED) Additional Instructions: Please do follow-up with your primary care physician in the next couple of days for recheck. Have your doctor review report from today. Have your doctor schedule ultrasound of the endometrium. Return for increased pain, fever, bleeding, worsening or changing symptoms or other concerns. Is patient prescribed a controlled substance at d/c from ED?: No Referrals: Rigoberto Correa DO [Primary Care Provider] - 1-2 days Time of Disposition: 14:05
[2024-05-30] MEDS: HYDROmorphone 0.5 MG/0.5 ML SYRINGE IVP STA (11:33)
[2024-05-30] MEDS: SODIUM CHLORIDE 0.9% 1,000 ML IV STA (11:34)
[2024-05-30 11:38] LABS: Basophils % (A) 0 %; Eosinophils # (A) 0.1 k/uL (0-0.7); Eosinophils % (A) 1 %; HCT 43.8 % (34.0-46.0); HGB 14.8 gm/dL (11.4-16.0); Lymphocytes # (A) 1.5 k/uL (1.0-4.8); Lymphocytes % (A) 14 %; MCHC 33.8 g/dL (31.0-37.0); MCV 88.7 fL (80.0-100.0); Mean Platelet Volume 7.9; Monocytes # (A) 0.6 k/uL (0-1.0); Monocytes % (A) 6 %; Neutrophils # (A) 8.6 k/uL (1.3-7.7); Neutrophils % (A) 79 %; Platelet Count 279 k/uL (150-450); RBC 4.94 m/uL (3.80-5.40); RDW 13.7 % (11.5-15.5); WBC 10.8 k/uL (3.8-10.6)
[2024-05-30 12:01] LABS: INR 0.9 (<1.2); Partial Thromboplastin Time 23.9 sec (22.0-30.0); Prothrombin Time 10.3 sec (10.0-12.5)
[2024-05-30 12:03] LABS: ALT 26 U/L (4-34); AST 47 U/L (14-36); African American GFR (CKD) >90 (>60 ml/min/1.73 sqM); Albumin 4.9 g/dL (3.5-5.0); Alkaline Phosphatase 35 U/L (38-126); Amylase 76 U/L (30-110); Anion Gap 7 mmol/L; Blood Urea Nitrogen 30 mg/dL (7-17); Calcium 10.1 mg/dL (8.4-10.2); Carbon Dioxide 31 mmol/L (22-30); Chloride 101 mmol/L (98-107); Glucose 121 mg/dL (74-99); Lipase 165 U/L (23-300); Non-African American GFR(CKD) >90 (>60 ml/min/1.73 sqM); Sodium 139 mmol/L (137-145); Total Bilirubin 1.1 mg/dL (0.2-1.3); Total Protein 7.7 g/dL (6.3-8.2)
[2024-05-30 12:06] LABS: Appearance,Urine Clear (Clear); Bilirubin,Urine Negative (Negative); Blood,Urine Small (Negative); Color,Urine Colorless; Glucose,Urine (UA) Negative (Negative); Ketones,Urine Negative (Negative); Leukocyte Esterase,Urine Moderate (Negative); Nitrite,Urine Negative (Negative); PH, Urine 7.5 (5.0-8.0); Protein,Urine Negative (Negative); RBC,Urine 36 /hpf (0-5); Specific Gravity,Urine 1.019 (1.001-1.035); Squamous Epithelial Cell,Urine 2 /hpf (0-4); Urobilinogen,Urine <2.0 mg/dL (<2.0); WBC,Urine 6 /hpf (0-5)
[2024-05-30 12:14] LABS: Potassium 4.7 mmol/L (3.5-5.1)
--- NOTE | 2024-05-30 12:14 | XR ---
EXAMINATION TYPE: XR chest 2V DATE OF EXAM: 05/30/2024 COMPARISON: 10/15/2021 HISTORY: 58-year-old female with abdominal pain and chest pain TECHNIQUE: PA and lateral views FINDINGS: Borderline heart size. Aorta and pulmonary vasculature within normal limits. Hazy density medial righ t base was present back in 2021 as well probably reflecting epicardial fat pad. No consolidation or p leural effusion. IMPRESSION: Borderline heart size. No acute process seen.
--- NOTE | 2024-05-30 12:16 | XR ---
EXAMINATION TYPE: XR KUB DATE OF EXAM: 05/30/2024 Comparison: None Clinical History: 58-year-old female upper abdominal pain Findings: Mild to moderate stool in the right side of the abdomen. No dilated small bowel or air-fluid levels. No evidence for free intraperitoneal air. No suspicious calcification clearly identified. Impression: No evidence for free air or bowel obstruction. [id number] stool in the right side of the abdome n.
--- NOTE | 2024-05-30 13:38 | CT ---
EXAMINATION TYPE: CT angio chest DATE OF EXAM: 05/30/2024 COMPARISON: 10/10/2020 HISTORY: 58-year-old female Rt Rib pain and stabbing chest pain. pt c/o of flank pain as well TECHNIQUE: Contiguous axial scanning of the chest after the administration of 100ml mL of Isovue 370. Coronal/sagittal MIP reconstructions performed. CT DLP: 1428.1mGycm. Automatic exposure control utilized for a dose reduction. FINDINGS: The heart is borderline enlarged without pericardial effusion. No reflux of contrast into the hepatic veins. Aorta normal caliber with very direct takeoff of the left vertebral artery directly from the aortic a rch. No thoracic lymph adenopathy by CT size criteria. Satisfactory opacification of the pulmonary arterial system without evidence for pulmonary embolus. No consolidation or pleural effusion. Abdomen reported separately. Bones: [facility] mid and lower thoracic spine with slight dextroconvex curvature mid thoracic spine. IMPRESSION: 1. No evidence for pulmonary embolus. 2. Borderline heart size but otherwise without acute process seen. 3. DISH mid and lower thoracic spine and slight dextroconvex curvature mid thoracic spine. 4. Abdomen reported separately.
[2024-05-30 13:40] VITALS: BP 135/74; PULSE 64; RESP 18
--- NOTE | 2024-05-30 13:47 | CT ---
EXAMINATION TYPE: CT abdomen pelvis w con DATE OF EXAM: 05/30/2024 COMPARISON: 09/25/2017 HISTORY: 58-year-old female Rt Rib pain and stabbing chest pain. Pt c/o of flank pain as well TECHNIQUE: Contiguous axial scanning of the abdomen and pelvis following administration of 100 ml Iso britta 300 IV contrast. Delayed images through the kidneys and coronal/sagittal reconstructions perform ed. CT DLP: 1428.1 mGycm Automated exposure control for dose reduction was used. FINDINGS: Chest reported separately. There is a tiny hiatal hernia. Some focal fat along the anterior falciform ligament and a benign 1.4 cm cyst of the left liver lobe. Portal venous system is patent. No biliary ductal dilatation. Gallbladder, right adrenal gland, kidneys, spleen, and pancreas show no gross abnormality. 1.3 cm nodule left adrenal gland is unchanged. Mild atherosclerotic calcifications infrarenal abdominal aorta without aneurysm. No dilated small bowel, free fluid, or free air. No mesenteric or retroperitoneal lymphadenopathy. Some prominent fluid-filled small bowel loops in the right lower quadrant. There is a normal appendix . Mild overall stool. No pericolonic inflammatory change. Bladder is urine distended. Uterus anteverted. There is fullness in the region of the endometrium. Mu ltiple pelvic phleboliths. Both ovaries are visualized. No abnormal fluid collection in the pelvis or pelvic lymphadenopathy. Bones: Hypertrophic facet arthropathy mid to lower lumbar spine. Mild disc bulging L4-L5 and L5-S1. IMPRESSION: 1. NO NEPHROLITHIASIS OR HYDRONEPHROSIS. 2. Some prominent fluid-filled small bowel loops in the right lower quadrant may be transient or coul d represent a mild regional ileus or enteritis. The appendix is normal. 3. Tiny hiatal hernia. 4. Some fullness in the region of the endometrium. Query any postmenopausal bleeding. Outpatient pelv ic ultrasound can better assess the junctional anatomy of the uterus and exclude any endometrial thic kening. 5. Unchanged 1.3 cm left adrenal gland nodule, statistically representing a benign adrenal adenoma.
[2024-05-30 14:23] VITALS: TEMP 98.1
== END 2024-05-30 14:23 | disposition home or self-care (01) ==
LOC: EC 10:25
DX: M54.9 Dorsalgia, unspecified (principal)
CPT/HCPCS: 36415; 71046; 71275; 74018; 74177; 80053; 81001; 82150; 83690; 85025; 85379; 85610; 85730; 93005; 96374; 99284

== ENCOUNTER → 2024-08-12 | Outpatient (CLI) | payer BC ==
[2024-08-12 15:17] VITALS: BP 125/60; PULSE 78; RESP 16; TEMP 97.8
--- NOTE | 2024-08-12 15:32 | P.PROGSL ---
Subjective DATE: 08/12/2024 FOLLOW UP VISIT. Patient with obstructive sleep apnea hypopnea syndrome return to sleep center for follow-up visit. Information from previous visit have been reviewed. Patient is using PAP equipment every night for the whole night, getting PAP supplies in time. The patient does not have significant problems with the mask, PAP unit and humidification. [place] sleepiness scale is 1, which is perfect. I checked information from PAP unit. PAP unit pressure 5-15, average 12.2 cm H2O. Usage is 98% for more then 4 hours, average 6.9 hours per night. Leak is 31 l/m, which is in acceptable range. Apnea Hypopnea Index is 0.1, which is perfect. MEDICATIONS have been reviewed, please see below. During physical exam: GENERAL: A pleasant patient without any distress. VITAL SIGNS: Please see below, weight is 175.6 lbs. HEENT: PERRLA, EOMI.low position of soft palate, Mallapati 4 . NECK: Supple. No JVD. LUNGS: Clear to percussion and to auscultation. Good air exchange. No wheezing or rhonchi. HEART: S1, S2 regular. ABDOMEN: Soft and nontender. Slightly obese EXTREMITIES: No clubbing or cyanosis. EARLY CHILDHOOD EDUCATION INSTRUCTOR: Awake, alert, and oriented x3. No focal deficit. Impressions: 1. Obstructive sleep apnea-hypopnea syndrome. Patient demonstrated great compliance with treatment, benefiting from treatment. 2. Obesity, BMI 32.7. 3. Diabetes mellitus, hemoglobin A1c according to patient 5.9. 4. Hypertension. 5. Hyperlipidemia. Plan: 1. Continue using PAP equipment every night for the whole night. 2. Sleep hygiene with regular time in bed for at least 7.5-8 hours 3. PAP unit should stay lower then position of the head. 4. Advised patient to remove all remaining water from humidifier canister daily and make it dry after each usage. Refill canister with fresh distilled water before each usage. 5. Watching and losing weight. 6. Precautions related to driving. No driving if feel any sleepiness. 7. I will maintain prescription for PAP supplies including mask, tube, filters. 8. Follow up visit in 8 months or earlier if patient has any problems. Thank you very much for allowing me to participate in the management of your patient. Fadi Elias MD, PhD, FAASM. Diplomat of [place] [employer], Sleep Medicine Board by [place] [employer] Hotel Reservation Agent of [facility] [place] Objective - Vital Signs Vital Signs: Vital Signs Temp 97.8 F 08/12/24 15:15 Pulse 78 08/12/24 15:15 Resp 16 08/12/24 15:15 BP 125/60 08/12/24 15:15 Pulse Ox 97 08/12/24 15:15 FiO2 Intake & Output 08/11/24 08/12/24 08/12/24 18:59 06:59 18:59 Weight 79.549 kg Home Medications: Home Medications Medication Instructions Recorded Confirmed Type Atorvastatin [Lipitor] 40 mg PO HS 06/21/18 10/15/21 History Triamterene-Hctz 37.5-25Mg 1 cap PO DAILY 06/21/18 10/15/21 History [Dyazide 37.5-25 Capsule] Ergocalciferol (Vitamin D2) 50,000 units PO TU 12/01/18 08/12/24 History [Vitamin D2] Ascorbic Acid [Vitamin C] 1,000 mg PO DAILY #30 tab 10/17/20 10/15/21 Rx Albuterol Inhaler [Ventolin Hfa 2 puff INHALATION RT-QID PRN 10/15/21 10/15/21 History Inhaler] Dulaglutide [Trulicity] 3 mg SQ FR 10/15/21 10/15/21 History Insulin Degludec [Tresiba 18 units SQ DAILY 10/15/21 10/15/21 History Flextouch U-100 Pen] Losartan Potassium 25 mg PO DAILY 10/15/21 08/12/24 History Multivitamins, Thera [Multivitamin 1 tab PO DAILY 10/15/21 10/15/21 History (formulary)] Pioglitazone [Actos] 15 mg PO DAILY 10/15/21 08/12/24 History Zinc 50 mg PO DAILY 10/15/21 10/15/21 History Rosuvastatin [Crestor] 40 mg PO DAILY 08/12/24 08/12/24 History hydroCHLOROthiazide 25 mg PO DAILY 08/12/24 08/12/24 History
== END ==
LOC: 3 N SLEEP 14:49
PROVIDERS: ATTEND Internal Medicine
DX: G47.33 Obstructive sleep apnea (adult) (pediatric) (principal); E66.9 Obesity, unspecified; E11.9 Type 2 diabetes mellitus without complications; I10 Essential (primary) hypertension; E78.5 Hyperlipidemia, unspecified; Z99.89 Dependence on other enabling machines and devices; Z68.32 Body mass index [BMI] 32.0-32.9, adult; Z79.899 Other long term (current) drug therapy; Z79.4 Long term (current) use of insulin; Z79.85 Long-term (current) use of injectable non-insulin antidiabetic drugs
CPT/HCPCS: 99212

== ENCOUNTER → 2024-09-03 | Outpatient (CLI) | payer BC ==
--- NOTE | 2024-09-03 16:29 | US ---
EXAMINATION TYPE: US transvaginal DATE OF EXAM: 09/03/2024 COMPARISON: CT abdomen and pelvis 05/30/2024 CLINICAL INDICATION: Female, 58 years old with history of N95.0 Postmenopausal bleeding; Endometrial lining. TECHNIQUE: Transvaginal (TV). Doppler imaging: Not performed. FINDINGS: EXAM MEASUREMENTS: Uterus: 7.0 x 4.6 x 4.9 cm Endometrial Stripe: 1.3 cm 1. Uterus: Anteverted wnl 2. Endometrium: Thickened. 3. Right Ovary: Obscured by overlying bowel gas 4. Left Ovary: Obscured by overlying bowel gas 5. Bilateral Adnexa: wnl 6. Posterior cul-de-sac: wnl Unremarkable anteverted uterus without focal lesion. Thickened endometrium. Both ovaries are obscured by overlying bowel gas. No free fluid. IMPRESSION: Thickened endometrium measuring up to 1.3 cm for a postmenopausal patient. Etiologies inc lude endometrial carcinoma versus endometrial hyperplasia versus fibroid versus other. Direct visuali zation is recommended. [facility], , 09/03/2024 4:26 PM
== END | disposition home or self-care (01) ==
LOC: RADUSWWP 15:52
PROVIDERS: ATTEND Family Medicine
DX: N95.0 Postmenopausal bleeding (principal); R93.89 Abnormal findings on diagnostic imaging of other specified body structures; Z78.0 Asymptomatic menopausal state
CPT/HCPCS: 76830

== ENCOUNTER → 2025-05-06 | Outpatient (CLI) | payer BC | LOC: 3 N SLEEP 13:58 | PROVIDERS: ATTEND Internal Medicine | DX: G47.33 Obstructive sleep apnea (adult) (pediatric) (principal) ==